=== PATIENT | male | born 1930 | race Caucasian/White ===

== ENCOUNTER 2016-04-18 00:14 | Emergency (ER) | payer MEDICARE, OTHER | END 2016-04-18 05:46 | disposition home or self-care (01) | DX: R41.0 Disorientation, unspecified (principal); R53.1 Weakness; I10 Essential (primary) hypertension; I25.10 Atherosclerotic heart disease of native coronary artery without angina pectoris; I25.2 Old myocardial infarction; Z95.1 Presence of aortocoronary bypass graft; Z95.0 Presence of cardiac pacemaker; E11.9 Type 2 diabetes mellitus without complications; J44.9 Chronic obstructive pulmonary disease, unspecified; Z86.73 Personal history of transient ischemic attack (TIA), and cerebral infarction without residual deficits; Z79.02 Long term (current) use of antithrombotics/antiplatelets; Z79.82 Long term (current) use of aspirin ==

== ENCOUNTER 2016-08-23 14:06 | Outpatient (CLI) | payer MEDICARE, OTHER | END 2016-08-23 14:07 | disposition short-term general hospital (02) | LOC: EMS 14:06 | PROVIDERS: ATTEND Surgery | DX: R06.02 Shortness of breath (principal) | CPT/HCPCS: A0425; A0427 ==

== ENCOUNTER 2016-10-14 21:19 | Outpatient (CLI) | payer MEDICARE, OTHER | END 2016-10-14 21:20 | disposition critical access hospital (66) | LOC: EMS 21:19 | PROVIDERS: ATTEND Surgery | DX: R10.9 Unspecified abdominal pain (principal); R11.0 Nausea | CPT/HCPCS: A0425; A0427 ==

== ENCOUNTER 2016-10-14 22:18 | Emergency (ER) | payer MEDICARE, OTHER ==
--- NOTE | 2016-10-14 22:38 | ED Physician Documentation ---
History of Present Illness - Stated complaint Stated Complaint: ABD PAIN - Chief complaint Chief Complaint: Abd Pain - History obtained from History obtained from: Patient - Additonal information Additional information: Patient is a 86-year-old man with history of coronary disease status post bypass 2 who presents with a complaint of right upper quadrant abdominal pain. He has had the abdominal pain each night for 3 consecutive previous nights. While he has a pain he develops nausea but does not have any vomiting. He does not think the pain is associated with eating. It did dissipate with nitroglycerin so he had taken nitroglycerin each night for the past couple of nights. He denies any fever or chills. He does have a cough but he does have a chronic cough and says it is not worse than it normally is. He describes a dull ache in the right upper quadrant but does not radiate. There is no constipation diarrhea or lower urinary symptoms. Tonight the pain was a little worse than it had been previously so he called the ambulance who brought him in for evaluation. Review of systems: For pertinent positive and negatives in the review of systems please see history of present illness. Otherwise all other systems have been reviewed and are negative. Dragon disclaimer: Parts of this medical record were created using voice recognition technology. Because of the inherent limitations of this system occasional same sounding word substitutions do occur and persist despite proofreading. Please read the document for context. Review of Systems Unable to obtain: Uncooperative Constitutional: denies: Fever, Chills, Myalgias Cardiac: denies: Chest pain / pressure, Palpitations Respiratory: reports: Cough. denies: Dyspnea GI: reports: Abdominal Pain, Nausea. denies: Abdominal Swelling, Vomiting, Constipation, Diarrhea, Hematemesis, Bloody / black stool : denies: Dysuria, Frequency, Hesitancy Neurologic: denies: Generalized weakness Endocrine: denies: Polydypsia, Polyuria PD PAST MEDICAL HISTORY - Past Medical History Cardiovascular: Hypertension, High cholesterol, Coronary artery disease, Angina , [place], Other Respiratory: COPD, Shortness of breath Neuro: TIA, Tremors Endocrine/Autoimmune: Type 2 diabetes GI: GERD, Ulcers : Renal insuffiency HEENT: Chronic vision loss, Chronic hearing loss Psych: None Musculoskeletal: Osteoarthritis Derm: None - Past Surgical History Past Surgical History: Yes General: Colonoscopy Ortho: Arthroscopic surgery Cardiovascular: CABG, Pacemaker HEENT: Cataracts - Present Medications Home Medications: Ambulatory Orders Medication Instructions Recorded Confirmed Albuterol [Ventolin Hfa] 2 puffs INH Q4H PRN 08/14/12 04/23/16 Aspirin [Aspir 81] 81 mg PO DAILY 08/14/12 04/23/16 Atorvastatin Calcium 20 mg PO HS 08/14/12 04/23/16 Beclomethasone 80 Mcg [Qvar 80] 1 puffs INH BID 08/14/12 04/23/16 Cinnamon Bark [Cinnamon] 500 mg PO DAILY 08/14/12 04/23/16 Clopidogrel [Plavix] 75 mg PO DAILY 08/14/12 04/23/16 Isosorbide Mononitrate [Imdur] 120 mg PO DAILY 08/14/12 04/23/16 Losartan Potassium [Cozaar] 25 mg PO DAILY 08/14/12 04/23/16 Metoprolol Tartrate 50 mg PO BID 08/14/12 04/23/16 Nitroglycerin [Nitrostat] 0.4 mg SL Q5MIN PRN 08/14/12 04/23/16 Cholecalciferol (Vitamin D3) 2,000 units PO DAILY 01/18/16 04/23/16 [Vitamin D3] Pantoprazole [Protonix] 40 mg PO DAILY 01/18/16 04/23/16 amLODIPine [Norvasc] 5 mg OP DAILY 01/18/16 04/23/16 Furosemide 20 mg PO DAILY 02/17/16 04/23/16 Isosorbide Mononitrate ER [Imdur] 60 mg PO DAILY 02/17/16 04/23/16 Terazosin [Hytrin] 10 mg PO DAILY PM 02/17/16 04/23/16 Tiotropium [place] [Spiriva] 1 inh IH DAILY 02/17/16 04/23/16 - Allergies Allergies/Adverse Reactions: Allergies Allergy/AdvReac Type Severity Reaction Status Date / Time acetaminophen Allergy Severe Itching Verified 10/14/16 22:31 atorvastatin calcium * Allergy Severe Itching Verified 10/14/16 22:31 [From Lipitor] cephalexin Allergy Severe Itching Verified 10/14/16 22:31 erythromycin base Allergy Severe Edema Verified 10/14/16 22:31 [Erythromycin Base] corn starch AdvReac Severe Itching Uncoded 01/18/16 11:08 - Social History Does the pt smoke?: No Smoking Status: Never smoker Does the pt drink ETOH?: No Does the pt have substance abuse?: No - Immunizations Immunizations are current?: Yes - POLST Patient has POLST: No PD ED PE NORMAL - General General: Alert and oriented X 3, No acute distress, Well developed/nourished, Other (Well-appearing elderly male lying in the bed in no apparent distress. He feels slightly warm to touch) - HEENT HEENT: Atraumatic, PERRL, Pharynx benign - Neck Neck: Supple, no meningeal sign, No bony TTP, No JVD, No bruit - Cardiac Cardiac: RRR, No murmur, No gallop, No rub - Respiratory Respiratory: No respiratory distress, Clear bilaterally - Abdomen Abdomen: Normal bowel sounds, Soft, Non distended, Other (Minimal tenderness right upper quadrant, no rebound, no peritoneal signs. No abnormal bowel tones) - Back Back: No CVA TTP - Derm Derm: Normal color, Warm and dry, No rash - Extremities Extremities: No deformity, No tenderness to palpate - Neuro Neuro: Alert and oriented X 3 Results - Vitals Vitals: Vital Signs - 24 hr 10/14/16 10/15/16 10/15/16 22:26 01:40 04:11 Temperature 37.2 C 36.9 C Heart Rate 68 54 L 55 L Respiratory 16 16 16 Rate Blood Pressure 172/51 H 137/69 H 132/70 H O2 Saturation 100 98 96 Oxygen O2 Source Nasal cannula - Labs Labs: Laboratory Tests 10/14/16 10/14/16 10/14/16 22:55 22:55 22:55 WBC 8.0 RBC 3.40 L Hgb 10.5 L Hct 31.9 L MCV 93.9 MCH 30.8 MCHC 32.8 RDW 15.8 H Plt Count 182 MPV 7.7 Neut # 6.3 Lymph # 1.1 L [place] # 0.5 Eos # 0.0 Baso # 0.0 Absolute Nucleated RBC 0.00 Nucleated RBCs 0.0 PT 12.3 INR 1.1 Sodium 139 Potassium 3.6 Chloride 103 Carbon Dioxide 27 Anion Gap 9.0 BUN 28 H Creatinine 1.3 H Estimated GFR (MDRD) 52 L Glucose 150 H Calcium 8.4 L Total Bilirubin 0.4 AST 56 H ALT 25 Alkaline Phosphatase 134 H Troponin I B-Natriuretic Peptide Total Protein 6.8 Albumin 3.2 Globulin 3.6 Albumin/Globulin Ratio 0.9 L Lipase 51 Urine Color Urine Clarity Urine pH Ur Specific [place]cd[place] Urine Protein Urine Glucose (UA) Urine Ketones Urine Occult Blood Urine Nitrite Urine Bilirubin Urine Urobilinogen Ur Leukocyte Esterase Ur Microscopic Review Urine Culture Comments 10/14/16 10/14/16 10/14/16 22:55 22:55 22:55 WBC RBC Hgb Hct MCV MCH MCHC RDW Plt Count MPV Neut # Lymph # [place] # Eos # Baso # Absolute Nucleated RBC Nucleated RBCs PT INR Sodium Potassium Chloride Carbon Dioxide Anion Gap BUN Creatinine Estimated GFR (MDRD) Glucose Calcium Total Bilirubin AST ALT Alkaline Phosphatase Troponin I 0.04 B-Natriuretic Peptide 345 H Total Protein Albumin Globulin Albumin/Globulin Ratio Lipase Urine Color YELLOW Urine Clarity CLEAR Urine pH 6.5 Ur Specific Mcd[place]iel 1.010 Urine Protein TRACE Urine Glucose (UA) NEGATIVE Urine Ketones NEGATIVE Urine Occult Blood NEGATIVE Urine Nitrite NEGATIVE Urine Bilirubin NEGATIVE Urine Urobilinogen 1 (NORMAL) Ur Leukocyte Esterase NEGATIVE Ur Microscopic Review NOT INDICATED Urine Culture Comments NOT INDICATED PD MEDICAL DECISION MAKING - ED course Complexity details: reviewed old records, reviewed results, re-evaluated patient , considered differential, d/w patient ED course: This patient is a 86-year-old man with history of multiple medical problems including hypertension, Dyslipidemia, COPD, asbestosis, Coronary artery disease status post bypass 2 and severe pulmonary hypertension On chronic oxygen who presents with right upper quadrant abdominal pain for 3 days. On examination initially he appeared flushed and was diaphoretic however he never measured a elevated temperature. On abdominal examination he had tenderness in the right upper quadrant and on ultrasound he had a sonographic Rossi's with a question of increased gallbladder wall thickness with biliary sludge. The patient has a normal white blood cell count and is transaminases, bilirubin, and lipase are normalThe case was discussed with general surgery initially and the Impression was that if this patient truly has acalculous cholecystitis and he probably should be transferred to facility with a higher level of care.. A CT scan of the abdomen and pelvis was performed without contrast and his CT scan shows A distended gallbladder with probable inflammatory changes. The radiologist comments that these findings are very suspicious for cholecystitis. Since no other problems were found on CT scan other than this patient's gallbladder, and because the symptoms fit I think he probably does have early acalculous cholecystitis. The patient's recent history was reviewed and he was here in January and transfered to [facility] because he was deemed too high of an operative risk for surgery here. 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 Because this patient likely has acalculous cholecystitis and in January when he had a hip fracture is deemed to high operative risk to be done at her hospital I think at this point in time we should try and transfer him to [facility] where he received surgery for his previous hip fracture. At this time blood cultures are being obtained and the patient will be started on empiric antibiotics. Disposition, transfer to [facility] Clinical impression: 1. Suspect early acalculous cholecystitis 2. Chronic bilateral pleural effusions 3. Chronic kidney disease-stable 4. Coronary disease status post bypass 2-stable 5.History of COPD, asbestosis, and pulmonary hypertension on chronic O2 therapy 6. Current anticoagulation on Plavix Critical care time approximately 70 minutes independent of any procedures Departure - Departure Disposition: 02 Transfer Acute Care Hosp Clinical Impression: Acute acalculous cholecystitis
--- NOTE | 2016-10-14 23:02 | XRAY Preliminary Report ---
Exam: XR Chest 1 View IMPRESSION: 1. Cardiomegaly and postoperative changes with pulmonary vascular congestion. 2. Bilateral infiltrates or edema and small pleural effusions. [facility] SITE ID: [id number]
[2016-10-14 23:03] LABS: BILIRUBIN,URINE NEGATIVE (NEGATIVE); PH,URINE 6.5 PH (5.0-7.5)
[2016-10-14 23:05] LABS: UA CHARGE (STRIP ONLY) YES; UR CULTURE IF IND NOT INDICATED
--- NOTE | 2016-10-14 23:05 | XRAY Report ---
EXAM: CHEST RADIOGRAPHY EXAM DATE: 10/14/2016 10:49 PM. CLINICAL HISTORY: Cough Right sided chest pain. COMPARISON: 04/18/2016. TECHNIQUE: 1 view. FINDINGS: Lungs/Pleura: Pulmonary vascular congestion. Bilateral infiltrates or edema. Small pleural effusions. No pneumothorax. Mediastinum: Mild cardiomegaly. Aortic atherosclerosis. Other: Median sternotomy. Implanted bipolar pacemaker on the left is unchanged. IMPRESSION: 1. Cardiomegaly and postoperative changes with pulmonary vascular congestion. 2. Bilateral infiltrates or edema and small pleural effusions. [facility] Referring Provider Line: [phone] SITE ID: [id number]
[2016-10-14 23:06] LABS: BASOPHILS % (AUTO) 0.4 %; EOSINOPHILS % (AUTO) 0.5 %; HCT - HEMATOCRIT 31.9 % (42.0-52.0); HGB - HEMOGLOBIN 10.5 g/dL (14.0-18.0); LYMPHOCYTES # (AUTO) 1.1 10^3/uL (1.5-3.5); LYMPHOCYTES % (AUTO) 13.4 %; MEAN CORPUSCULAR HEMOGLOBIN 30.8 pg (27.0-31.0); MEAN CORPUSCULAR HGB CONC 32.8 g/dL (32.0-36.0); MEAN CORPUSCULAR VOLUME 93.9 fL (80.0-94.0); MEAN PLATELET VOLUME 7.7 fL (7.4-11.4); MONOCYTES # (AUTO) 0.5 10^3/uL (0.0-1.0); MONOCYTES % (AUTO) 6.7 %; NEUTROPHILS # (AUTO) 6.3 10^3/uL (1.5-6.6); RED CELL DISTRIBUTION WIDTH 15.8 % (12.0-15.0)
[2016-10-14 23:16] LABS: INR 1.1 (0.8-1.2); PT - PROTHROMBIN TIME 12.3 secs (9.9-12.6)
[2016-10-14 23:22] LABS: ALBUMIN/GLOBULIN RATIO 0.9 (1.0-2.2); BILIRUBIN,TOTAL 0.4 mg/dL (0.2-1.0); CALCIUM 8.4 mg/dL (8.5-10.3); CREATININE 1.3 mg/dL (0.6-1.2); POTASSIUM 3.6 mmol/L (3.5-5.0); TOTAL PROTEIN 6.8 g/dL (6.7-8.2)
--- NOTE | 2016-10-15 00:50 | Ultrasound Preliminary Report ---
Exam: US Abdomen Limited IMPRESSION: 1. Exam is equivocal for acute cholecystitis. There is distention of the gallbladder as well as borde rline wall thickening. Patient reports right upper quadrant tenderness. No pericholecystic fluid. No biliary dilation. 2. Nonspecific coarsened hepatic point, the echogenicity. Hepatocellular disease difficult to exclude with certainty. [facility] SITE ID: [id number]
--- NOTE | 2016-10-15 00:53 | Ultrasound Report ---
EXAM: ABDOMEN ULTRASOUND LIMITED, RUQ EXAM DATE: 10/14/2016 11:48 PM. CLINICAL HISTORY: Right upper quadrant abdominal pain. COMPARISON: 12/10/2012. TECHNIQUE: Real-time scanning was performed with static images obtained. FINDINGS: Liver: Mild coarsened parenchymal echogenicity. No suspicious focal lesion. Liver measures 16.7 cm in length. Portal Vein: Patent with hepatopetal flow. Gallbladder: Moderately distended gallbladder. There is gallbladder sludge. Borderline wall thickenin g. Equivocal positive sonographic Rossi sign. Biliary System: CBD measures 3.0 mm. No intrahepatic or extrahepatic ductal dilatation. Pancreas: Obscured by overlying structures. Right Kidney: Visualized portions of the right kidney are without significant abnormality. Right kid huey measures 11.7 cm in length. Other: No significant free fluid. IMPRESSION: 1. Exam is equivocal for acute cholecystitis. There is distention of the gallbladder as well as borde rline wall thickening. Patient reports right upper quadrant tenderness. No pericholecystic fluid. No biliary dilation. 2. Nonspecific coarsened hepatic point, the echogenicity. Hepatocellular disease difficult to exclude with certainty. [facility] Referring Provider Line: [phone] SITE ID: [id number]
--- NOTE | 2016-10-15 04:04 | CT Preliminary Report ---
Exam: CT Abdomen/Pelvis W/O IMPRESSION: 1. Mildly distended gallbladder with probable inflammatory changes. No calcified gallstones are seen but findings are suspicious for cholecystitis. 2. Appendix appears normal. 3. Colonic diverticula without evidence of diverticulitis. 4. Pulmonary opacities and chronic loculated pleural fluid collections, similar compared with the andrea or chest CT. [facility] SITE ID: [id number]
--- NOTE | 2016-10-15 04:07 | CT Report ---
EXAM: CT ABDOMEN AND PELVIS EXAM DATE: 10/15/2016 03:28 AM. CLINICAL HISTORY: Abdominal pain. COMPARISONS: CT chest, 02/17/2016. CT abdomen and pelvis, 01/14/2008. TECHNIQUE: Routine helical CT imaging was performed through the abdomen and pelvis. IV contrast: None . Enteric contrast: No. Reconstructions: Coronal and sagittal. In accordance with CT protocol optimization, one or more of the following dose reduction techniques w ere utilized for this exam: automated exposure control, adjustment of mA and/or KV based on patient s ize, or use of iterative reconstructive technique. FINDINGS: Lung Bases: Coarse bibasilar pulmonary opacities and small loculated chronic pleural fluid collection s. These findings are similar compared with the prior chest CT. Postoperative changes. Heart size upp er normal. Small hiatal hernia with postoperative changes at the gastroesophageal junction. Liver: No focal lesion identified on this noncontrast examination. Gallbladder/Bile Ducts: Gallbladder is distended. Suspect inflammatory changes. No calcified gallston es are seen. Spleen: Normal. Pancreas: Moderate atrophy. Adrenal Glands: Normal. Kidneys: Normal. No masses or hydronephrosis. Peritoneal Cavity/Bowel: Colonic diverticula with no definite diverticulitis. No bowel obstruction se en. Moderate stool in the colon, right greater than left. No free air or free fluid. No lymphadenopat hy. Appendix appears normal. Pelvic Organs: Streak artifact. No obvious acute abnormality. Vasculature: Moderate to severe atherosclerosis. No cecilia aneurysm. Bones: Left hip prosthesis. Degenerative changes in the spine. Other: None. IMPRESSION: 1. Mildly distended gallbladder with probable inflammatory changes. No calcified gallstones are seen but findings are suspicious for cholecystitis. 2. Appendix appears normal. 3. Colonic diverticula without evidence of diverticulitis. 4. Pulmonary opacities and chronic loculated pleural fluid collections, similar compared with the andrea or chest CT. [facility] Referring Provider Line: [phone] SITE ID: [id number]
--- NOTE | 2016-10-15 04:11 | CT Preliminary Report ---
Exam: CT Thoracic Spine W/O IMPRESSION: 1. Osteopenia and mild degenerative changes. 2. No acute thoracic spine abnormality seen. [facility] SITE ID: [id number]
--- NOTE | 2016-10-15 04:14 | CT Report ---
EXAM: CT THORACIC SPINE WITHOUT CONTRAST EXAM DATE: 10/15/2016 03:28 AM. CLINICAL HISTORY: Right-sided pain. COMPARISONS: CT chest, 02/17/2016. TECHNIQUE: Thin-section axial images were acquired of the thoracic spine without contrast. Post-proce ssing: Coronal and sagittal reformats. Other: None. In accordance with CT protocol optimization, one or more of the following dose reduction techniques w ere utilized for this exam: automated exposure control, adjustment of mA and/or KV based on patient s ize, or use of iterative reconstructive technique. FINDINGS: Alignment: Unremarkable. Bones: Osteopenia. No acute fracture or focal area of bone destruction identified. Disk Levels/Facets: Multilevel degenerative disk disease and degenerative joint disease, mild for age. No significant spi nal stenosis is appreciated. Other: Pulmonary opacities and chronic loculated pleural fluid collections are similar compared with the prior chest CT. IMPRESSION: 1. Osteopenia and mild degenerative changes. 2. No acute thoracic spine abnormality seen. [facility] Referring Provider Line: [phone] SITE ID: [id number]
[2016-10-15] MEDS ORDERED: PIPERACILLIN/TAZOBACTAM 3.375 GM in SODIUM CHLORIDE 0.9% MINIBAG 100 ML IV STA (05:23)
[2016-10-15 06:58] VITALS: BP 138/69
== END 2016-10-15 07:00 | disposition short-term general hospital (02) ==
LOC: EDBD → EDUNIT# → ED 22:18
DX: K81.0 Acute cholecystitis (principal); J90 Pleural effusion, not elsewhere classified; E11.22 Type 2 diabetes mellitus with diabetic chronic kidney disease; I12.9 Hypertensive chronic kidney disease with stage 1 through stage 4 chronic kidney disease, or unspecified chronic kidney disease; N18.9 Chronic kidney disease, unspecified; I25.119 Atherosclerotic heart disease of native coronary artery with unspecified angina pectoris; Z95.1 Presence of aortocoronary bypass graft; Z79.01 Long term (current) use of anticoagulants; Z95.0 Presence of cardiac pacemaker; I25.2 Old myocardial infarction; J44.9 Chronic obstructive pulmonary disease, unspecified; Z86.73 Personal history of transient ischemic attack (TIA), and cerebral infarction without residual deficits; K21.9 Gastro-esophageal reflux disease without esophagitis; Z87.11 Personal history of peptic ulcer disease; M19.90 Unspecified osteoarthritis, unspecified site; Z79.82 Long term (current) use of aspirin
CPT/HCPCS: 36415; 71010; 72128; 74176; 76705; 80053; 81001; 81003; 83690; 83880; 84484; 85025; 85610; 87040; 87086; 93005; 96365; 99284; 99291

== ENCOUNTER 2016-10-15 06:57 | Outpatient (CLI) | payer MEDICARE, OTHER | END 2016-10-15 06:58 | disposition short-term general hospital (02) | LOC: EMS 06:57 | PROVIDERS: ATTEND Surgery | DX: K80.80 Other cholelithiasis without obstruction (principal) | CPT/HCPCS: A0170; A0425; A0426 ==

== ENCOUNTER 2016-10-29 08:00 | Outpatient (CLI) | payer MEDICARE, OTHER ==
[2016-10-29 19:28] LABS: CALCIUM 9.3 mg/dL (8.5-10.3); CREATININE 1.5 mg/dL (0.6-1.2); POTASSIUM 4.8 mmol/L (3.5-5.0)
== END 2016-10-29 08:01 ==
LOC: LAB.F 08:00
PROVIDERS: ATTEND Family Medicine
DX: I13.0 Hypertensive heart and chronic kidney disease with heart failure and stage 1 through stage 4 chronic kidney disease, or unspecified chronic kidney disease (principal)
CPT/HCPCS: 80048

== ENCOUNTER 2016-11-15 14:15 | Outpatient (CLI) | payer MEDICARE, OTHER ==
--- NOTE | 2016-11-15 18:13 | CONSULTATION NOTE ---
Palliative Care Consultation - Referral Referring Provider: Nicky WATTS Time of Visit: [id number] - History of Present Illness Brief History of Present Illness: This is a fiesty 86 year old gentleman with multiple co-morbidities including significant COPD, CAD/diastolic heart failure, A-fib with pacer, DM, CKD and angina. He lives in the basement apartment of his [facility], but has become increasingly dependent, anxious, and frail. His most pressing symptom is his angina, this has improved with the use of his oxygen 24/, though he is not always compliant and tends to "fuss" about it. It usually responds to nitro, but when gets panicky tends to call 911, if daughter can talk him "down" they usually get through these spells. He has underlying severe COPD, noted rhonchi throughout, baseline, had been followed by HH on and off after various hospitalization. He perceives the pulmicort nebulizer has been most helpful in addressing his dyspnea. He has had some weight loss, at 136, previous a year ago 155, on HH discharge 144. Recently hospitalized at [place] with abdominal pain since resolved, CT had noted some sludge in gallbladder and was suspicious of calculous cholecystitis, no recurrence. 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 Medical/Surgical History - Past Medical History Cardiovascular: reports: Hypertension, High cholesterol, Coronary artery disease , Angina, [place], Other Respiratory: reports: COPD, Shortness of breath Neuro: reports: TIA, Tremors Endocrine/Autoimmune: reports: Type 2 diabetes GI: reports: GERD, Ulcers : reports: Renal insuffiency HEENT: reports: Chronic vision loss, Chronic hearing loss Psych: reports: Depression, Anxiety, Panic attacks Musculoskeletal: reports: Osteoarthritis, Fatigue Derm: reports: None MRSA Hx?: No - Past Surgical History General: reports: Colonoscopy Ortho: reports: Arthroscopic surgery Cardiovascular: reports: CABG, Pacemaker HEENT: reports: Cataracts - Substance History Use: Uses substance without health or social issues: NONE, Other (alcohol use in past;) Social History - Living Situation Living arrangement: At home, Other (patient lives in basement of stepdaughter and her ; he and her mother had moved in over 20 years ago; she in 2003) Living Situation: Alone (patient has lifeline; Carie checks on regularly but she is returning to work; reports he gets more anxious these last few months as he has declined) Family History - Family History Family History: Mother: , CVA/TIA, Father: , Sister: , Brother: Alive and Well (89) Medications/Allergies - Medications Home Medications: Ambulatory Orders Medication Instructions Recorded Confirmed Albuterol [Ventolin Hfa] 2 puffs INH Q4H PRN 08/14/12 11/18/16 Aspirin [Aspir 81] 81 mg PO DAILY 08/14/12 11/18/16 Clopidogrel [Plavix] 75 mg PO DAILY 08/14/12 11/18/16 Isosorbide Mononitrate [Imdur] 120 mg PO BID 08/14/12 11/18/16 Metoprolol Tartrate 50 mg PO BID 08/14/12 11/18/16 Nitroglycerin [Nitrostat] 0.4 mg SL Q5MIN PRN 08/14/12 11/18/16 Cholecalciferol (Vitamin D3) 2,000 units PO DAILY 01/18/16 11/18/16 [Vitamin D3] Pantoprazole [Protonix] 40 mg PO DAILY 01/18/16 11/18/16 amLODIPine [Norvasc] 5 mg OP DAILY 01/18/16 11/18/16 Furosemide 40 mg PO DAILY 02/17/16 11/18/16 Tiotropium [place] [Spiriva] 1 inh IH DAILY 02/17/16 11/18/16 Beta Carotene 25,000 units PO DAILY 11/18/16 Budesonide 1 neb INH BID 11/18/16 11/18/16 Gentle Iron 28 mg PO DAILY 11/18/16 Ipratropium/Albuterol [Duoneb] 1 neb INH Q4HR PRN 11/18/16 11/18/16 Prosta [place] 1 - 2 cap PO DAILY 11/18/16 - Allergies Allergies/Adverse Reactions: Allergies Allergy/AdvReac Type Severity Reaction Status Date / Time acetaminophen Allergy Severe Itching Verified 10/14/16 22:31 atorvastatin calcium * Allergy Severe Itching Verified 10/14/16 22:31 [From Lipitor] cephalexin Allergy Severe Itching Verified 10/14/16 22:31 erythromycin base Allergy Severe Edema Verified 10/14/16 22:31 [Erythromycin Base] corn starch AdvReac Severe Itching Uncoded 01/18/16 11:08 Review of Systems - Constitutional Constitutional: reports: Fatigue, Weakness, Weight loss (136; baseline a few years ago was 155; most recently on home health 144-145) - Eyes Eyes: reports: Vision loss, Corrective lenses - Ears, Nose & Throat Ears, Nose & Throat: reports: Hearing loss - Cardiovascular Cariovascular: reports: Irregular heart rate, Chest pain, Lightheadedness, Exertional dyspnea, Decr. exercise tolerance - Respiratory Respiratory: reports: Cough, Wheezing, SOB at rest, SOB with exertion - Gastrointestinal Gastrointestinal: reports: Constipation, Reflux/heartburn - Genitourinary Genitourinary: reports: Incontinence - Musculoskeletal Musculoskeletal: reports: Muscle pain, Back pain, Muscle aches, Stiffness, Limited range of motion, Muscle weakness - Integumentary Integumentary: reports: Dryness - Neurological Neurological: reports: General weakness, Dizziness, Memory problems, Abnormal gait - Psychiatric Psychiatric: reports: Depression, Anxiety. denies: Suicidal - Endocrine Endocrine: reports: Intolerance to cold - Hematologic/Lymphatic Hematologic/Lymphatic: reports: Other (on plavix) - All Other Systems All Other Systems: reports: Reviewed and negative Physical Examination - Vital Signs Temperature: 98.4 C Pulse Rate: 54 Respiratory Rate: 20 O2 Saturation: 93 (2l) Blood Pressure: 148/62 - Physical Exam General Appearance: positive: No acute distress, Anxious Eyes Bilateral: positive: Normal inspection ENT: positive: No signs of dehydration. negative: Oral lesions Neck: positive: No JVD, Trachea midline, Stiff neck. negative: Lymphadenopathy (R), Lymphadenopathy (L) Respiratory: positive: Rhonchi (throughout; clear some with cough effort; patient's baseline) Cardiovascular: positive: Irregularly irregular, Systolic murmur Abdomen: positive: Nml bowel sounds, No distention Skin: positive: Dryness Extremities: positive: Full ROM, No pedal edema Neurologic/Psychiatric: positive: Oriented x3, Depressed mood/affect Palliative Care - POLST Patient has POLST: Yes POLST Status: DNR (no further selections made) Pain: No pain Drowsiness: Mild (1-3) (easily fatigues) Nausea: None Anxiety: Moderate (4-6) Dyspnea: Mild (1-3) Anorexia: Mild (1-3) Insomnia: Sleeps well Constipation: No Feelings of wellbeing/Perceived Quality of Life: Worsening Performance Status: Patient independent in his apartment; does go out in yard at times. Has poor activity tolerance but is able to shower independently - Palliative Care Discussion: Surrogate decision maker-Carie [facility] stepdaughter; patient admits with his anxiety etc. that he gets "explosive" at times; daughter reports he has "rages" and can be unreasonable at times; is noting anxiety worsens in later afternoon and evening. Does feel he is feeling more vulnerable, does get more worried when she is out for evening etc. Daughter's worried about shelter ability to keep him in the home without more support; has been resistant to "paying" for help to come in, though in conversation today was open to Carie exploring this further with impending return to work as she is a teacher. Patient has a POLST as DNAR; but rest is not complete. Given the length and new visit will redo at follow up, is posted on fridge. Patient's perception of his illness is that he is getting worse when as what his thoughts were "think I don't have much time left"; "don't scare easily"; but does get frightened with the chest pain. Patient would like not to have to go to hospital but likes the paramedics and the care he gets. Impression and Recommendations - Palliative Care Impression: This is a 86 year old gentleman that presents with multiple co-morbidities of CAD/diastolic heart failure; COPD; DM; CKD; Afib with pacemaker and angina. He is now oxygen dependent, moderate symptom burden of fatigue, dyspnea, anxiety, and depressive mood. Patient has had both slow cognitive and functional decline over the year, as well as multiple hospitalizations. Goal is to develop shelter plan to address decline; social situation; and manage symptoms. Recommendations/Counseling Done: 1. Angina, chronic. Patient's symptoms have improved with 24 hour use of oxygen , though does not strictly adhere. No chest pain episodes last two weeks. Discussed "urgent care" plan, patient often calls daughter and if can allay anxiety, use of nitro usually effective. Patient with mild cognitive deficits and would not be able implement plan on own, but did supply to daughter morphine 20 mg/ml to give 0.25 ml if pain unrelieved with morphine as a tool; as well as lorazepam if needed for rescue when patient has escalating "panic' attacks. 2. Anxiety. Patient with history of long standing issues with mood swings. Patterns describe possible sundowning. Discussed possible initiation of low does celexa as can address neuropsychiatric symptoms in some dementia patients to help with mood stabilization. Has rescue lorazepam to use only if escalating ; directions given to use lorzepam 2 mg/ml to use 0.125 ml. Directions reviewed , daughter will keep medications with her, understand they are a "tool box" to help meet goals to minimize 911 calls and address her concern of not being able to do anything. Did recommend follow up on getting caregivers for companionship and support for patient; recommended and provided list of agencies. Daughter's daughter to have first grandbaby in February and she will be gone 3 weeks, this would help patient if used to other caregivers in preparation. 3. COPD. Patient tolerating breathlessness with pacing of activity, independent in use of nebulizer. 4. Advanced care planning. Patient is presenting with decline; daugther concern about LTP; will have Palliative Care Supervisor Customer Services follow up. Reviewed POLST, will address at next visit as patient easily overwhelmed. Difficult for patient to get out to appointments etc. related to fatigue/breathlessness/ and generalized weakness. Will see patient in two weeks to revisit. Prognostically patient on Jae Index which looks at Community Dwelling adults age 64 and older for all cause 1 year mortality Out of 100 with similar answers for patient 47 will and 53 will survive over the next year. Risk calculators cannot predict the future for any one individual, but give an estimate of how many individuals with similar risk factors will live and dies but cannot identify who. Time Spent: 75 mintues spent with greater than 50% done counseling regarding angina/anxiety/ goals of care and anticipatory guidance.
== END 2016-11-15 14:16 | disposition home or self-care (01) ==
LOC: PC 14:15
PROVIDERS: ATTEND Nurse Practitioner Adult Health
DX: Z51.5 Encounter for palliative care (principal); J44.9 Chronic obstructive pulmonary disease, unspecified; Z91.81 History of falling; E11.22 Type 2 diabetes mellitus with diabetic chronic kidney disease; I13.0 Hypertensive heart and chronic kidney disease with heart failure and stage 1 through stage 4 chronic kidney disease, or unspecified chronic kidney disease; N18.9 Chronic kidney disease, unspecified; I50.30 Unspecified diastolic (congestive) heart failure; I48.91 Unspecified atrial fibrillation; Z95.0 Presence of cardiac pacemaker; I25.111 Atherosclerotic heart disease of native coronary artery with angina pectoris with documented spasm; F41.9 Anxiety disorder, unspecified; Z95.1 Presence of aortocoronary bypass graft; H91.90 Unspecified hearing loss, unspecified ear; H54.7 Unspecified visual loss; Z99.81 Dependence on supplemental oxygen; Z66 Do not resuscitate
CPT/HCPCS: 99345

== ENCOUNTER 2016-11-28 14:00 | Outpatient (CLI) | payer MEDICARE, OTHER ==
--- NOTE | 2016-11-28 16:05 | PROVIDER PROGRESS NOTE ---
Palliative Care Follow Up - Referral Referring Provider: Nicky WATTS Time of Visit: [id number] Referral setting: Home (patient is seen in his home setting secondary to it's a taxing and considerable effort for him to leave the home related to his dyspnea and fatigue) Referral Reason: Advanced COPD - Information Sources History obtained from: Patient Exam limitations: Clinical condition (patient with STM deficits able to participate in visit) - History of Present Illness Update Brief HPI Update: This is a 86 year old gentleman with severe end stage COPD complicated by co- morbidities of diastolic heart failure/atrial fib/pacemaker, DM, CKD, and chronic angina/hypoxia. Patient with dyspnea at rest, but does not perceive this as distressful, now dependent on oxygen, remains independent in apartment but recognizing needing more support. Productive cough, wheezing and scatter rhonchi throughout, patient's baseline. Reports "feeling some better", able to engage and concentrate on conversation today. Social History - Living Situation Living arrangement: Other (lives in basement of daugther's home) Living Situation: Alone (daughter upstairs; checks on regularly but is returning to school where she works now) Support System: Patient has sizing end bander once a week, baths while she is there but no assistance ; now helps with laundry Medications/Allergies - Medications Home Medications: Ambulatory Orders Medication Instructions Recorded Confirmed Albuterol [Ventolin Hfa] 2 puffs INH Q4H PRN 08/14/12 11/18/16 Aspirin [Aspir 81] 81 mg PO DAILY 08/14/12 11/18/16 Clopidogrel [Plavix] 75 mg PO DAILY 08/14/12 11/18/16 Isosorbide Mononitrate [Imdur] 120 mg PO BID 08/14/12 11/18/16 Metoprolol Tartrate 50 mg PO BID 08/14/12 11/18/16 Nitroglycerin [Nitrostat] 0.4 mg SL Q5MIN PRN 08/14/12 11/18/16 Cholecalciferol (Vitamin D3) 2,000 units PO DAILY 01/18/16 11/18/16 [Vitamin D3] Pantoprazole [Protonix] 40 mg PO DAILY 01/18/16 11/18/16 amLODIPine [Norvasc] 5 mg OP DAILY 01/18/16 11/18/16 Furosemide 40 mg PO DAILY 02/17/16 11/18/16 Tiotropium [place] [Spiriva] 1 inh IH DAILY 02/17/16 11/18/16 Beta Carotene 25,000 units PO DAILY 11/18/16 Budesonide 1 neb INH BID 11/18/16 11/18/16 Gentle Iron 28 mg PO DAILY 11/18/16 Ipratropium/Albuterol [Duoneb] 1 neb INH Q4HR PRN 11/18/16 11/18/16 Prosta [place] 1 - 2 cap PO DAILY 11/18/16 Lorazepam [Lorazepam Intensol] 0.25 mg SL Q6HR PRN 11/28/16 11/28/16 Morphine Sulfate [Morphine Sulf 5 mg SL Q4HR PRN 11/28/16 11/28/16 Oral (Roxanol)] - Allergies Allergies/Adverse Reactions: Allergies Allergy/AdvReac Type Severity Reaction Status Date / Time acetaminophen Allergy Severe Itching Verified 10/14/16 22:31 atorvastatin calcium * Allergy Severe Itching Verified 10/14/16 22:31 [From Lipitor] cephalexin Allergy Severe Itching Verified 10/14/16 22:31 erythromycin base Allergy Severe Edema Verified 10/14/16 22:31 [Erythromycin Base] corn starch AdvReac Severe Itching Uncoded 01/18/16 11:08 Review of Systems - Constitutional Constitutional: reports: Fatigue, Other (140) - Eyes Eyes: reports: Vision loss, Corrective lenses - Ears, Nose & Throat Ears, Nose & Throat: reports: Hearing loss, Hearing aids - Cardiovascular Cariovascular: reports: Irregular heart rate, Chest pain (decreased episodes; using maybe two times a week and only one; perceives it is when he takes his medications on the later side; feels oxygen has made big difference) - Respiratory Respiratory: reports: Cough (constant rolling cough/moist baseline;), Sputum production (brown tinged in am per report-clear by end of day), Wheezing, SOB at rest (reports has "gotten use to it" ;), SOB with exertion - Gastrointestinal Gastrointestinal: reports: Constipation (controlled with softener). denies: Black stools, Reflux/heartburn - Genitourinary Genitourinary: reports: Urgency - Musculoskeletal Musculoskeletal: reports: Muscle aches, Stiffness, Joint pain (left shoulder; better control with using APAP twice a day) - Integumentary Integumentary: reports: Rash (perceives has rash on upper arms) - Neurological Neurological: reports: General weakness, Memory problems (feels had "like a stroke" a few months a go with change in balance and memory; had a high IQ before), Abnormal gait, Other (voice very soft and weak) - Psychiatric Psychiatric: reports: Anxiety. denies: Delusions, Hallucinations - Endocrine Endocrine: reports: Other (type II diabetes) - Hematologic/Lymphatic Hematologic/Lymphatic: denies: Recurrent infections - All Other Systems All Other Systems: reports: Reviewed and negative Physical Examination - Vital Signs Temperature: 98.7 C Pulse Rate: 51 Respiratory Rate: 22 O2 Saturation: 97 Blood Pressure: 152/72 - Physical Exam General Appearance: positive: No acute distress Eyes Bilateral: positive: Conjunctivae nml ENT: positive: ENT inspection nml Neck: positive: No JVD, Trachea midline Respiratory: positive: Wheezes (expiratory wheezing), Rhonchi (improved with asking to expell sputum; requested he "cough it out" more frequently), Other ( patient with rolling cough; productive of slight tompkins/white sputum; reports his "normal";) Cardiovascular: positive: Irregularly irregular, Bradycardia, Systolic murmur Abdomen: positive: Non-tender, Nml bowel sounds Skin: positive: Dryness Extremities: positive: No pedal edema Neurologic/Psychiatric: positive: Oriented x3, Slurred/abnml speech (voice weak and forced air to get volume up) Palliative Care - POLST Patient has POLST: Yes POLST Status: DNR Pain: Pain unchanged, Location (shoulders left greater than right; reports controlled) Drowsiness: Mild (1-3) (does sleep some during the day due to boredom) Nausea: None Anxiety: Mild (1-3) Dyspnea: Moderate (4-6) Anorexia: Mild (1-3) (reports eats "pretty well" sometimes not hungary) Insomnia: Sleeps well Constipation: Yes, Managed Feelings of wellbeing/Perceived Quality of Life: Worsening (patient with insight that he is declining;) Performance Status: Patient ambulates with 4WW in apartment; feeling less sure of himself with bathing does admit it would be helpful to have assistance; sometimes takes walk outside but paces self; walks a few feet then sits on walker; daughter assists with meal prep or leaves groceries he can prepare himself - Palliative Care Discussion: Patient seen by himself today, seems more trusting now of myself. Shared he "doesn't expect to be going much further", when asked specifically if afraid of dying he says he is not scared. He reports he is sikhism in his own way, but nothing specific. Is missing relationship with who 13 years ago. Discussed my concerns about his isolation, reports he is not depressed but could see it is getting "harder". Explored barriers to having more help, he has very strong opinions about money, would have some to support hiring care or going to an assisted living. He has a unrealistic plan of hiring someone he met at the [employer] that is a caregiver, "she was real nice". Reviewed many people who choose to be caregivers are very nice, he could see it would be helpful to have help with showers and out to breakfast etc. Reminded it would be good to have in place before daughter leaves to help with new granddaughter expected in the late fall. He will talk to his daughter again about getting help. Has POLST, does understand he has limited life expectancy, does not want to be more dependent. Needs to be further completed but will wait for daughter to redo. Discussed question about stress test; patient feeling he would not be a candidate for surgery and not willing to do much more. Discussed currently symptoms stable, 4 hour test felt overwhelming and concerned about the trip. Would support if patient did not want to pursue at this time given his goals. Impression and Recommendations - Palliative Care Impression: This is a 86 year old gentleman with severe end stage COPD complicated by co- morbidities of diastolic heart failure/atrial fib/pacemaker, DM, CKD, and chronic angina/hypoxia. Patient reports minimal angina episodes less than 2 times a week, responding to nitro, and feeling better overall. Patient with dyspnea at rest but tolerating without distress. Patient fragile but managing with current care plan in place. Recommendations/Counseling Done: 1. Angina, patient perceives managing well with oxygen and occasional nitro with good relief. Reports anxiety improved with fewer episodes and feels it is usually related to medication management. 2. Dyspnea, patient tolerating dyspnea, needing to be reminded to wear oxygen at all times. Counseling for pacing, energy conservation, using neb correctly BID, and management of secretions. 3. Anxiety. Counseling to explore feelings of loss and grief with loss of health and declining functional/cognitive status. Encouraged to pursue more support and socialization, will have Palliative Care Risk Prevention Engineer follow up as well. Patient [employer] vet, may benefit from volunteer. Patient does not perceive self as depressed, will continue to monitor if might benefit from pharmaceutical support. 4. Advanced care planning, counseling regarding patient's goals of care, concerns, coping and anticipatory guidance. Time Spent: Time spent 45 minutes with greater than 50% done in counseling regarding symptom management, goals of care and anticipatory guidance.
== END 2016-11-28 14:01 | disposition home or self-care (01) ==
LOC: PC 14:00
PROVIDERS: ATTEND Nurse Practitioner Adult Health
DX: Z51.5 Encounter for palliative care (principal); R06.00 Dyspnea, unspecified; J44.9 Chronic obstructive pulmonary disease, unspecified; I25.111 Atherosclerotic heart disease of native coronary artery with angina pectoris with documented spasm; F41.9 Anxiety disorder, unspecified; Z91.81 History of falling; E11.22 Type 2 diabetes mellitus with diabetic chronic kidney disease; I13.0 Hypertensive heart and chronic kidney disease with heart failure and stage 1 through stage 4 chronic kidney disease, or unspecified chronic kidney disease; N18.9 Chronic kidney disease, unspecified; I50.30 Unspecified diastolic (congestive) heart failure; I48.91 Unspecified atrial fibrillation; Z95.0 Presence of cardiac pacemaker; Z95.1 Presence of aortocoronary bypass graft; H91.90 Unspecified hearing loss, unspecified ear; H54.7 Unspecified visual loss; Z99.81 Dependence on supplemental oxygen
CPT/HCPCS: 99349

== ENCOUNTER 2016-12-17 16:15 | Outpatient (CLI) | payer MEDICARE, OTHER ==
--- NOTE | 2016-12-17 19:06 | PROVIDER PROGRESS NOTE ---
Palliative Care Follow Up - Referral Referring Provider: Nicky WATTS Time of Visit: 9209-1731 Referral setting: Home (patient is seen in home setting secondary to it's a taxing and considerable effort for the patient to leave the home) Referral Reason: Angina - Information Sources History obtained from: Patient, Family (daughter Carie present for visit) Exam limitations: Clinical condition (patient very anxious; some STM issues and cognitive deficits) - History of Present Illness Update Brief HPI Update: This is a 86 year old fiesty gentleman with severe end stage COPD, and multiple co-morbidities of diastolic heart failure, atrial fib, pacemeake, DM, CKD, and chronic angina. Daughter Carie called this am, patient with anxiety distress regarding SOB, perceived oxygen as "not working", chest pain though relieved with nitro attributed to his oxygen, worried about medications, and not easily redirected. Was not in respiratory distress, but unable to convince him his oxygen was fine, and was hoping for assistance with his agitation, requesting a visit to head off 911 encounter. 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 I find the patient at end of day, recovered, but convinced his oxygen was not working with out the window open and the fan bringing it in, the "machine" is not a good one. Examined concentrator, changed out cannula (stiffened and hard) and check 02 sats on 2 liters is 99%. Very hard to redirect, or understand how it "works", but reassured by the numbers. Demonstrated use of oximeter, numbers reassuring to patient, will leave mine for him to use and daughter will obtain one. Reviewed episodes of chest pain, noted 'breathlessness" on awakening last night , and one nitro worked this am. Lungs at baseline are poor, but no moist crackles noted, no LE edema, vitals stable so reassured. Using nitro maybe as best his recall is about twice a week, goes several days, and at the most has had to use two these last few weeks. Acknowledged is doing well. Concern about "changing up" told Ranexa was the next step, is that he is alone and if side effects or adjustment issues has no supervision or support. Reassured current regimen appears to be very effective, patient remains active with able to take walk around neighborhood pacing self, ambulates in apartment, and rarely pain at rest and that is good. Patient unable to express what he is worried about with chest pain as has resolved in past with nitro and rest. Social History - Living Situation Living arrangement: At home Living Situation: With family (lives in daughters lower level split home; looking to hire assistance but difficulty finding caregivers) Support System: Medications/Allergies - Medications Home Medications: Ambulatory Orders Medication Instructions Recorded Confirmed Albuterol [Ventolin Hfa] 2 puffs INH Q4H PRN 08/14/12 12/17/16 Aspirin [Aspir 81] 81 mg PO DAILY 08/14/12 12/17/16 Clopidogrel [Plavix] 75 mg PO DAILY 08/14/12 12/17/16 Isosorbide Mononitrate [Imdur] 120 mg PO BID 08/14/12 12/17/16 Metoprolol Tartrate 50 mg PO BID 08/14/12 12/17/16 Nitroglycerin [Nitrostat] 0.4 mg SL Q5MIN PRN 08/14/12 12/17/16 Cholecalciferol (Vitamin D3) 2,000 units PO DAILY 01/18/16 12/17/16 [Vitamin D3] Pantoprazole [Protonix] 40 mg PO DAILY 01/18/16 12/17/16 amLODIPine [Norvasc] 5 mg OP DAILY 01/18/16 12/17/16 Furosemide 40 mg PO DAILY 02/17/16 12/17/16 Tiotropium [place] [Spiriva] 1 inh IH DAILY 02/17/16 12/17/16 Beta Carotene 25,000 units PO DAILY 11/18/16 12/17/16 Budesonide 1 neb INH BID 11/18/16 12/17/16 Gentle Iron 28 mg PO DAILY 11/18/16 12/17/16 Ipratropium/Albuterol [Duoneb] 1 neb INH Q4HR PRN 11/18/16 12/17/16 Prosta [place] 1 - 2 cap PO DAILY 11/18/16 12/17/16 Lorazepam [Lorazepam Intensol] 0.25 mg SL Q6HR PRN 11/28/16 12/17/16 Morphine Sulfate [Morphine Sulf 5 mg SL Q4HR PRN 11/28/16 12/17/16 Oral (Roxanol)] - Allergies Allergies/Adverse Reactions: Allergies Allergy/AdvReac Type Severity Reaction Status Date / Time acetaminophen Allergy Severe Itching Verified 10/14/16 22:31 atorvastatin calcium * Allergy Severe Itching Verified 10/14/16 22:31 [From Lipitor] cephalexin Allergy Severe Itching Verified 10/14/16 22:31 erythromycin base Allergy Severe Edema Verified 10/14/16 22:31 [Erythromycin Base] corn starch AdvReac Severe Itching Uncoded 01/18/16 11:08 Review of Systems - Constitutional Constitutional: reports: Weight gain (about 150 eating better; not fluid weight) - Eyes Eyes: reports: Corrective lenses - Ears, Nose & Throat Ears, Nose & Throat: reports: Hearing loss, Hearing aids, Dentures - Cardiovascular Cariovascular: reports: Irregular heart rate, Chest pain (reviewed this episode ; attributes to "oxygen"; goes several day without any nitro needs; occasional 1 -2 times; but relief after on pill. Does not appear to be at a threshold needs to chane meiation), Exertional dyspnea, Decr. exercise tolerance - Respiratory Respiratory: reports: Wheezing, SOB with exertion, Other (gets very excited about oxygen;) - Gastrointestinal Gastrointestinal: denies: Constipation, Nausea, Reflux/heartburn - Genitourinary Genitourinary: reports: Urgency - Musculoskeletal Musculoskeletal: reports: Stiffness, Muscle weakness, Other (ambulates with 4WW) - Integumentary Integumentary: reports: Rash (upper arms; not new; fluctuates in severity) - Neurological Neurological: reports: General weakness, Memory problems, Abnormal gait - Psychiatric Psychiatric: reports: Anxiety - Endocrine Endocrine: reports: Intolerance to cold - Hematologic/Lymphatic Hematologic/Lymphatic: denies: Bruising - All Other Systems All Other Systems: reports: Reviewed and negative Physical Examination - Physical Exam General Appearance: positive: No acute distress, Anxious Eyes Bilateral: positive: Conjunctivae nml ENT: positive: No signs of dehydration Neck: positive: Trachea midline Respiratory: positive: Rhonchi, Other (has expiratory grating/fibrotic BS; anterior rhonchi clear with cough; prod. sputum of slightly pink) Cardiovascular: positive: Irregularly irregular, Systolic murmur Abdomen: positive: Nml bowel sounds, No distention Skin: positive: Pallor, Dryness, Rash (improved on forearms) Extremities: positive: No pedal edema Neurologic/Psychiatric: positive: Oriented x3, Other (patient with anxiety; some perserverating behaviors; has intermittent agitation) Palliative Care - POLST Patient has POLST: Yes POLST Status: DNR Pain: Pain unchanged Drowsiness: Mild (1-3) (drifts off easily) Nausea: None Anxiety: Moderate (4-6) Dyspnea: Moderate (4-6) Anorexia: None Insomnia: Sleeps well Constipation: No Feelings of wellbeing/Perceived Quality of Life: Improved Performance Status: Previous level of function prior to this episode []. Current level of functioning []. Palliative Care Performance Status []. - Palliative Care Discussion: Surrogate decision maker []. Patient/Family understanding of the illness []. Information preferences []. Most important goals []. Patient/Family concerns [] . Family conference []. Impression and Recommendations - Palliative Care Impression: This is a fiesty 86 year old gentleman with mild dementia and underlying anxiety disorder, with advanced COPD, and multiple complicating co-morbidities that leave him quite fragile. His symptoms despite the severity of his illnesses , are fairly well controlled. His daughter has returned to work, they have not found caregivers at this time, and patient feeling more vulnerable and anxious. Goals include trying to manage at home with focusing on quality of life issues, attempt to decreased hospitalizations, but recognizing his continued functional and cognitive decline may impact these outcomes. Recommendations/Counseling Done: 1. Advanced COPD, patient wearing his oxygen most of the time now, with perceived decrease in breathlessness and chest pain. Counseling done related to oxygen use/mechanics, limited understanding, resorted to CBT with teaching how to use the oximeter to reassure him it is working, as well as to take relaxations breaths and rest. Inst. daughter to get hand held fan as well to assist with feelings of anxiety during this time, perceived when fan was on in room it helped the oxygen. 2. Chest pain. Will follow up with Dr. Celio fitzgerald for transition to Ranexa , daughters understanding is this would be the next step from the isosorbide. Both myself and her, given the fragility of his situation, am concerned about making changes that may cause increase side effects. Reassured current regimen, with reported episodes of averaging about 2-3 times a week, was acceptable as these were easily relieved and patient activity level not limited by angina, but by fatigue and baseline dyspnea. 3. Anxiety. Daughter attempting to find caregiving support, needs assistance with bathing, and socialization. Palliative Care Consumer Advocate is attempting to make contact, will continue with volunteer referral as well. Patient reassured by end of visit, supportive listening for concerns. Hesitant to add medications at this time, but will monitor behaviors may need low dose seroquel or consider SSRI. 4. Advanced Care Planning. Given the level of anxiety will did not pursue finishing the POLST today, it is marked DNR and both patient and daughter in agreement. Do need to further explore goals regarding hospitalization, EOL preferences, and acceptable QOL thresholds in future visits. Time Spent: 45 minutes with greater than 50% done in counseling regarding management of symptoms, anxiety and anticipatory guidance.
== END 2016-12-17 16:16 | disposition home or self-care (01) ==
LOC: PC 16:15
PROVIDERS: ATTEND Nurse Practitioner Adult Health
DX: Z51.5 Encounter for palliative care (principal); J44.9 Chronic obstructive pulmonary disease, unspecified; I20.9 Angina pectoris, unspecified; F41.9 Anxiety disorder, unspecified; I48.91 Unspecified atrial fibrillation; E11.22 Type 2 diabetes mellitus with diabetic chronic kidney disease; I13.0 Hypertensive heart and chronic kidney disease with heart failure and stage 1 through stage 4 chronic kidney disease, or unspecified chronic kidney disease; N18.9 Chronic kidney disease, unspecified; Z95.0 Presence of cardiac pacemaker; Z66 Do not resuscitate; Z79.82 Long term (current) use of aspirin; Z79.891 Long term (current) use of opiate analgesic; Z79.51 Long term (current) use of inhaled steroids
CPT/HCPCS: 99349

== ENCOUNTER 2017-01-05 22:29 | Outpatient (CLI) | payer MEDICARE, OTHER | END 2017-01-05 22:30 | disposition EMS.NT | LOC: EMS 22:29 | PROVIDERS: ATTEND Surgery | DX: R06.00 Dyspnea, unspecified (principal); R07.9 Chest pain, unspecified ==

== ENCOUNTER 2017-01-06 05:23 | Outpatient (CLI) | payer MEDICARE, OTHER | END 2017-01-06 05:24 | disposition critical access hospital (66) | LOC: EMS 05:23 | PROVIDERS: ATTEND Surgery | DX: R41.0 Disorientation, unspecified (principal) | CPT/HCPCS: A0425; A0429 ==

== ENCOUNTER 2017-01-06 06:00 | Emergency (ER) | payer MEDICARE, OTHER ==
--- NOTE | 2017-01-06 07:37 | ED Physician Documentation ---
PD HPI CHEST PAIN - Stated complaint Stated Complaint: ALOC/UTI - Chief complaint Chief Complaint: Neuro - History obtained from History obtained from: Patient, EMS - History of Present Illness Timing - onset: Enter time (1200), Last night Timing - onset during: Rest Timing - duration: Hours (2) Timing - details: Gradual onset, Now resolved Quality: Pressure, Tightness Location: Left chest Improved by: Nitro Associated symptoms: No: Shortness of air, Diaphoresis Similar symptoms before: Diagnosis (CAD) Recently seen: Not recently seen - Additional information Additional information: 86-year-old male with a history of coronary artery disease awoke last night with chest pain. He realized he had not taken his isosorbide and he took it. He had called 911 last night and when medics arrived his pain was resolved and he decided not to come into the hospital. This morning when he awakened he felt that he should come into the hospital be checked out for the pain that he had in his chest last night. He denies any other current illness. He does state that he has a chronic cough chronic shortness of breath and does not believe this is changed. Review of Systems Constitutional: denies: Fever, Chills, Myalgias Eyes: denies: Decreased vision Ears: denies: Ear pain Nose: denies: Congestion Throat: denies: Sore throat Cardiac: reports: Chest pain / pressure. denies: Palpitations, Pedal edema, Calf pain Respiratory: reports: Dyspnea, Cough GI: denies: Abdominal Pain, Nausea, Vomiting, Constipation, Diarrhea : denies: Dysuria, Frequency PD PAST MEDICAL HISTORY - Past Medical History Past Medical History: Yes Cardiovascular: Hypertension, High cholesterol, Coronary artery disease, Angina , MS, Other Respiratory: COPD, Shortness of breath Neuro: TIA, Tremors Endocrine/Autoimmune: Type 2 diabetes GI: GERD, Ulcers : Renal insuffiency HEENT: Chronic vision loss, Chronic hearing loss Psych: Depression, Anxiety, Panic attacks Musculoskeletal: Osteoarthritis, Fatigue Derm: None - Past Surgical History Past Surgical History: Yes General: Colonoscopy Ortho: Arthroscopic surgery Cardiovascular: CABG, Pacemaker HEENT: Cataracts - Present Medications Home Medications: Ambulatory Orders Medication Instructions Recorded Confirmed Albuterol [Ventolin Hfa] 2 puffs INH Q4H PRN 08/14/12 12/17/16 Aspirin [Aspir 81] 81 mg PO DAILY 08/14/12 12/17/16 Clopidogrel [Plavix] 75 mg PO DAILY 08/14/12 12/17/16 Isosorbide Mononitrate [Imdur] 120 mg PO BID 08/14/12 12/17/16 Metoprolol Tartrate 50 mg PO BID 08/14/12 12/17/16 Nitroglycerin [Nitrostat] 0.4 mg SL Q5MIN PRN 08/14/12 12/17/16 Cholecalciferol (Vitamin D3) 2,000 units PO DAILY 01/18/16 12/17/16 [Vitamin D3] Pantoprazole [Protonix] 40 mg PO DAILY 01/18/16 12/17/16 amLODIPine [Norvasc] 5 mg OP DAILY 01/18/16 12/17/16 Furosemide 40 mg PO DAILY 02/17/16 12/17/16 Tiotropium [place] [Spiriva] 1 inh IH DAILY 02/17/16 12/17/16 Beta Carotene 25,000 units PO DAILY 11/18/16 12/17/16 Budesonide 1 neb INH BID 11/18/16 12/17/16 Gentle Iron 28 mg PO DAILY 11/18/16 12/17/16 Ipratropium/Albuterol [Duoneb] 1 neb INH Q4HR PRN 11/18/16 12/17/16 Prosta [place] 1 - 2 cap PO DAILY 11/18/16 12/17/16 Lorazepam [Lorazepam Intensol] 0.25 mg SL Q6HR PRN 11/28/16 12/17/16 Morphine Sulfate [Morphine Sulf 5 mg SL Q4HR PRN 11/28/16 12/17/16 Oral (Roxanol)] - Allergies Allergies/Adverse Reactions: Allergies Allergy/AdvReac Type Severity Reaction Status Date / Time acetaminophen Allergy Severe Itching Verified 01/06/17 06:13 atorvastatin calcium * Allergy Severe Itching Verified 01/06/17 06:13 [From Lipitor] cephalexin Allergy Severe Itching Verified 01/06/17 06:13 erythromycin base Allergy Severe Edema Verified 01/06/17 06:13 [Erythromycin Base] corn starch AdvReac Severe Itching Uncoded 01/06/17 06:13 - Social History Does the pt smoke?: No Smoking Status: Never smoker Does the pt drink ETOH?: No Does the pt have substance abuse?: No - Immunizations Immunizations are current?: Yes - POLST Patient has POLST: Yes PD ED PE NORMAL - Vitals Vital signs reviewed: Yes (tachypneic ) - General General: Well developed/nourished, Other (tachypnea at rest) - HEENT HEENT: Atraumatic, PERRL, EOMI, Other (hearing aids X 2 are not removed for exam ) - Cardiac Cardiac: No murmur, Other (bradycardic with distant sounds. ) - Respiratory Respiratory: Other (tacypnea at rest with bibasilar rhonchi worse on the left. ) - Abdomen Abdomen: Soft, Non tender - Back Back: No CVA TTP, No spinal TTP - Derm Derm: Normal color, Warm and dry, No rash - Extremities Extremities: No deformity, No edema - Neuro Neuro: No motor deficit, No sensory deficit, Normal speech - Psych Psych: Normal mood, Normal affect Results - Vitals Vitals: Vital Signs - 24 hr 01/06/17 01/06/17 01/06/17 05:59 06:55 07:33 Temperature 37.0 C Heart Rate 55 L 54 L 57 L Respiratory 29 H 27 H 22 Rate Blood Pressure 138/45 H 128/48 L 137/49 H O2 Saturation 96 96 96 01/06/17 01/06/17 01/06/17 08:00 09:30 10:28 Temperature Heart Rate 52 L 53 L 52 L Respiratory 23 21 21 Rate Blood Pressure 127/50 L 159/56 H O2 Saturation 95 93 01/06/17 01/06/17 11:28 12:34 Temperature Heart Rate 57 L 56 L Respiratory 20 Rate Blood Pressure 141/50 H 145/82 H O2 Saturation 94 96 Oxygen O2 Source Room air - Labs Labs: Laboratory Tests 01/06/17 01/06/17 01/06/17 08:17 08:17 08:17 WBC 6.6 RBC 3.48 L Hgb 10.8 L Hct 32.3 L MCV 92.9 MCH 30.9 MCHC 33.3 RDW 14.6 Plt Count 168 MPV 7.2 L Neut # 4.7 Lymph # 1.3 L Cass # 0.5 Eos # 0.1 Baso # 0.0 Absolute Nucleated RBC 0.00 Nucleated RBC % 0.0 Sodium 138 Potassium 4.2 Chloride 104 Carbon Dioxide 25 Anion Gap 9.0 BUN 32 H Creatinine 1.5 H Estimated GFR (MDRD) 44 L Glucose 137 H Calcium 8.8 Total Bilirubin 0.4 AST 15 ALT < 10 L Alkaline Phosphatase 68 Troponin I 0.04 B-Natriuretic Peptide Total Protein 6.6 L Albumin 3.3 Globulin 3.3 Albumin/Globulin Ratio 1.0 Lipase 15 L Urine Color Urine Clarity Urine pH Ur Specific [place] Urine Protein Urine Glucose (UA) Urine Ketones Urine Occult Blood Urine Nitrite Urine Bilirubin Urine Urobilinogen Ur Leukocyte Esterase Ur Microscopic Review Urine Culture Comments 01/06/17 01/06/17 08:17 11:00 WBC RBC Hgb Hct MCV MCH MCHC RDW Plt Count MPV Neut # Lymph # Cass # Eos # Baso # Absolute Nucleated RBC Nucleated RBC % Sodium Potassium Chloride Carbon Dioxide Anion Gap BUN Creatinine Estimated GFR (MDRD) Glucose Calcium Total Bilirubin AST ALT Alkaline Phosphatase Troponin I B-Natriuretic Peptide 154 H Total Protein Albumin Globulin Albumin/Globulin Ratio Lipase Urine Color YELLOW Urine Clarity CLEAR Urine pH 5.5 Ur Specific [place] 1.010 Urine Protein NEGATIVE Urine Glucose (UA) NEGATIVE Urine Ketones NEGATIVE Urine Occult Blood NEGATIVE Urine Nitrite NEGATIVE Urine Bilirubin NEGATIVE Urine Urobilinogen 0.2 (NORMAL) Ur Leukocyte Esterase NEGATIVE Ur Microscopic Review NOT INDICATED Urine Culture Comments NOT INDICATED - Rads (name of study) 2 view chest Radiology: Prelim report reviewed (Impression: 1. Cardiomegaly. Borderline vascular congestion. 2. Bilateral bronchial thickening with coarse basilar opacities which can be seen with bronchitis or reactive airways disease. No areas of dense consolidation.), EMP read indepedently, See rad report Procedures - IVC sono (time) 0730 Bedside IVC sono: IVC measures (cm) (1.54), IVC collapsed c insp (cm) (0.75), Euvolemia PD MEDICAL DECISION MAKING - ED course Complexity details: reviewed old records, reviewed results, re-evaluated patient , considered differential, d/w patient ED course: 86 y/o male with a history of CAD with an episode of chest pain lasting 2 hours last night has come to the hospital this morning without symptoms and wants to be checked out. I suspect this patient has stable angina and without his isosorbide likely had a hypertensive crisis resulting in angina.He has no angina now and no symptoms and no signs of damage. Departure - Departure Disposition: 01 Home, Self Care Clinical Impression: Angina at rest Condition: Stable Instructions: ED Chest Pain Angina Stable Follow-Up: Nicky Zuniga ARNP [Primary Care Provider] - Comments: Today it appears that you had this episode of chest pain last night when you were not taking your isosorbide. Take this on a regular basis. Discharge Date/Time: 01/06/17 12:59
[2017-01-06] MEDS ORDERED: IPRATROPIUM/ALBUTEROL 3 ML NEB INH STA (07:45)
[2017-01-06] MEDS ORDERED: IPRATROPIUM/ALBUTEROL 3 ML NEB INH ONE (08:10)
[2017-01-06 08:25] LABS: BASOPHILS % (AUTO) 0.2 %; EOSINOPHILS # (AUTO) 0.1 10^3/uL (0.0-0.7); EOSINOPHILS % (AUTO) 1.1 %; HCT - HEMATOCRIT 32.3 % (42.0-52.0); HGB - HEMOGLOBIN 10.8 g/dL (14.0-18.0); LYMPHOCYTES # (AUTO) 1.3 10^3/uL (1.5-3.5); LYMPHOCYTES % (AUTO) 19.6 %; MEAN CORPUSCULAR HEMOGLOBIN 30.9 pg (27.0-31.0); MEAN CORPUSCULAR HGB CONC 33.3 g/dL (32.0-36.0); MEAN CORPUSCULAR VOLUME 92.9 fL (80.0-94.0); MEAN PLATELET VOLUME 7.2 fL (7.4-11.4); MONOCYTES # (AUTO) 0.5 10^3/uL (0.0-1.0); MONOCYTES % (AUTO) 8.4 %; NEUTROPHILS # (AUTO) 4.7 10^3/uL (1.5-6.6); NEUTROPHILS % (AUTO) 70.7 %; RED BLOOD COUNT 3.48 10^6/uL (4.70-6.10); RED CELL DISTRIBUTION WIDTH 14.6 % (12.0-15.0); UNCORRECTED WHITE BLOOD COUNT 6.6 x10^3/uL; WHITE BLOOD COUNT 6.6 x10^3/uL (4.8-10.8)
--- NOTE | 2017-01-06 08:31 | XRAY Preliminary Report ---
Exam: XR Chest 2 View PA/LAT IMPRESSION: 1. Cardiomegaly. Borderline vascular congestion. 2. Bilateral bronchial thickening with coarse basilar opacities which can be seen with bronchitis or reactive airways disease. No areas of dense consolidation. [facility] SITE ID: [id number]
--- NOTE | 2017-01-06 08:34 | XRAY Report ---
EXAM: CHEST RADIOGRAPHY EXAM DATE: 01/06/2017 08:09 AM. CLINICAL HISTORY: Cough rhonchi in the left base. COMPARISON: 04/18/2016. 02/17/2016. TECHNIQUE: 2 views. FINDINGS: Lungs/Pleura: Vasculature is mildly prominent. There is bilateral bronchial thickening and coarse bas ilar opacities. Basilar pleural thickening. No pneumothorax. Mediastinum: Cardiomegaly. Aortic atherosclerosis. Other: Degenerative changes of the thoracic spine. IMPRESSION: 1. Cardiomegaly. Borderline vascular congestion. 2. Bilateral bronchial thickening with coarse basilar opacities which can be seen with bronchitis or reactive airways disease. No areas of dense consolidation. [facility] Referring Provider Line: [phone] SITE ID: [id number]
[2017-01-06 08:41] LABS: BILIRUBIN,TOTAL 0.4 mg/dL (0.2-1.0); BUN - BLOOD UREA NITROGEN 32 mg/dL (6-20); CALCIUM 8.8 mg/dL (8.5-10.3); CARBON DIOXIDE - CO2 25 mmol/L (21-32); CHLORIDE 104 mmol/L (101-111); CREATININE 1.5 mg/dL (0.6-1.2); GFR - MDRD 44 (>89); GLUCOSE 137 mg/dL (70-100); LIPASE 15 U/L (22-51); POTASSIUM 4.2 mmol/L (3.5-5.0); SODIUM 138 mmol/L (135-145); TOTAL PROTEIN 6.6 g/dL (6.7-8.2)
[2017-01-06 11:12] LABS: BILIRUBIN,URINE NEGATIVE (NEGATIVE); PH,URINE 5.5 PH (5.0-7.5)
[2017-01-06 11:16] LABS: UA CHARGE (STRIP ONLY) YES; UR CULTURE IF IND NOT INDICATED
[2017-01-06 12:36] VITALS: BP 145/82
== END 2017-01-06 12:59 | disposition home or self-care (01) ==
LOC: EDUNIT# → ED 06:00
DX: I25.119 Atherosclerotic heart disease of native coronary artery with unspecified angina pectoris (principal); I10 Essential (primary) hypertension; E78.00 Pure hypercholesterolemia, unspecified; I25.2 Old myocardial infarction; J44.9 Chronic obstructive pulmonary disease, unspecified; E11.9 Type 2 diabetes mellitus without complications; Z86.73 Personal history of transient ischemic attack (TIA), and cerebral infarction without residual deficits; K21.9 Gastro-esophageal reflux disease without esophagitis; N28.9 Disorder of kidney and ureter, unspecified; M19.90 Unspecified osteoarthritis, unspecified site; Z87.11 Personal history of peptic ulcer disease; Z79.82 Long term (current) use of aspirin
CPT/HCPCS: 36415; 71020; 80053; 81003; 83690; 83880; 84484; 85025; 93005; 94640; 99284; J7620; 81001; 87086

== ENCOUNTER 2017-01-09 11:00 | Outpatient (CLI) | payer MEDICARE, OTHER ==
[2017-01-09 18:38] LABS: BILIRUBIN,URINE NEGATIVE (NEGATIVE)
[2017-01-09 20:32] LABS: WBC,URINE >25 /HPF (0-3)
[2017-01-09 20:33] LABS: UR CULTURE IF IND INDICATED
== END 2017-01-09 11:01 | disposition home or self-care (01) ==
LOC: LAB.R 11:00
PROVIDERS: ATTEND Nurse Practitioner Family
DX: N39.0 Urinary tract infection, site not specified (principal)
CPT/HCPCS: 81001; 87086

== ENCOUNTER 2017-02-19 13:26 | Outpatient (CLI) | payer MEDICARE, OTHER ==
[2017-02-19 18:00] LABS: CALCIUM 9.2 mg/dL (8.5-10.3); CREATININE 1.4 mg/dL (0.6-1.2)
== END 2017-02-19 13:27 | disposition home or self-care (01) ==
LOC: LAB.F 13:26
PROVIDERS: ATTEND Nurse Practitioner Family
DX: N18.9 Chronic kidney disease, unspecified (principal)
CPT/HCPCS: 36415; 80048

== ENCOUNTER 2017-03-03 11:45 | Outpatient (CLI) | payer MEDICARE, OTHER | END 2017-03-03 11:46 | disposition critical access hospital (66) | LOC: EMS 11:45 | PROVIDERS: ATTEND Surgery | DX: R04.0 Epistaxis (principal) | CPT/HCPCS: A0425; A0429 ==

== ENCOUNTER 2017-03-03 12:23 | Emergency (ER) | payer MEDICARE, OTHER ==
[2017-03-03] MEDS ORDERED: OXYMETAZOLINE NASAL SPRAY NAS STA (14:12)
--- NOTE | 2017-03-03 14:13 | ED Physician Documentation ---
PD HPI HEENT - Stated complaint Stated Complaint: nosebleed - Chief complaint Chief Complaint: Heent - History obtained from History obtained from: Patient - History of Present Illness Timing - onset: How many hours ago (2), Today Timing - duration: Hours Timing - details: Abrupt onset (with apparent injury), Still present Location: Nose (right sided nosebleed) Improves: Other (pinching nose) Associated symptoms: No: Fever Similar symptoms before: Has not had sx before Recently seen: Not recently seen Review of Systems Constitutional: denies: Fever Nose: denies: Rhinorrhea / runny nose, Congestion Throat: denies: Sore throat Cardiac: denies: Chest pain / pressure Respiratory: denies: Dyspnea, Cough Endocrine: denies: Easy bruising / bleeding PD PAST MEDICAL HISTORY - Past Medical History Past Medical History: Yes Cardiovascular: Hypertension, High cholesterol, Coronary artery disease, Angina , [place], Other Respiratory: COPD, Shortness of breath Neuro: TIA, Tremors Endocrine/Autoimmune: Type 2 diabetes GI: GERD, Ulcers : Renal insuffiency HEENT: Chronic vision loss, Chronic hearing loss Psych: Depression, Anxiety, Panic attacks Musculoskeletal: Osteoarthritis, Fatigue Derm: None - Past Surgical History Past Surgical History: Yes General: Colonoscopy Ortho: Arthroscopic surgery Cardiovascular: CABG, Pacemaker HEENT: Cataracts - Present Medications Home Medications: Ambulatory Orders Medication Instructions Recorded Confirmed Albuterol [Ventolin Hfa] 2 puffs INH Q4H PRN 08/14/12 12/17/16 Aspirin [Aspir 81] 81 mg PO DAILY 08/14/12 12/17/16 Clopidogrel [Plavix] 75 mg PO DAILY 08/14/12 12/17/16 Isosorbide Mononitrate [Imdur] 120 mg PO BID 08/14/12 12/17/16 Metoprolol Tartrate 50 mg PO BID 08/14/12 12/17/16 Nitroglycerin [Nitrostat] 0.4 mg SL Q5MIN PRN 08/14/12 12/17/16 Cholecalciferol (Vitamin D3) 2,000 units PO DAILY 01/18/16 12/17/16 [Vitamin D3] Pantoprazole [Protonix] 40 mg PO DAILY 01/18/16 12/17/16 amLODIPine [Norvasc] 5 mg OP DAILY 01/18/16 12/17/16 Furosemide 40 mg PO DAILY 02/17/16 12/17/16 Tiotropium [place] [Spiriva] 1 inh IH DAILY 02/17/16 12/17/16 Beta Carotene 25,000 units PO DAILY 11/18/16 12/17/16 Budesonide 1 neb INH BID 11/18/16 12/17/16 Gentle Iron 28 mg PO DAILY 11/18/16 12/17/16 Ipratropium/Albuterol [Duoneb] 1 neb INH Q4HR PRN 11/18/16 12/17/16 Prosta [place] 1 - 2 cap PO DAILY 11/18/16 12/17/16 LORazepam [Lorazepam Intensol] 0.25 mg SL Q6HR PRN 11/28/16 12/17/16 Morphine Sulfate [Morphine Sulf 5 mg SL Q4HR PRN 11/28/16 12/17/16 Oral (Roxanol)] - Allergies Allergies/Adverse Reactions: Allergies Allergy/AdvReac Type Severity Reaction Status Date / Time acetaminophen Allergy Severe Itching Verified 01/06/17 06:13 atorvastatin calcium * Allergy Severe Itching Verified 01/06/17 06:13 [From Lipitor] cephalexin Allergy Severe Itching Verified 01/06/17 06:13 erythromycin base Allergy Severe Edema Verified 01/06/17 06:13 [Erythromycin Base] corn starch AdvReac Severe Itching Uncoded 01/06/17 06:13 - Social History Does the pt smoke?: No Smoking Status: Never smoker Does the pt drink ETOH?: No Does the pt have substance abuse?: No - Immunizations Immunizations are current?: Yes - POLST Patient has POLST: Yes PD ED PE NORMAL - Vitals Vital signs reviewed: Yes - General General: Alert and oriented X 3, No acute distress, Well developed/nourished - HEENT HEENT: Ears normal, Pharynx benign, Other (right anterior medial wall of nose with mild bleeding, stopped with pinching. Minimal blood back of throat. ) - Neck Neck: Supple, no meningeal sign, No adenopathy Results - Vitals Vitals: Oxygen O2 Source 2L blow by - Labs Labs: Laboratory Tests 03/03/17 03/03/17 03/03/17 14:30 14:30 14:30 WBC 5.5 RBC 3.58 L Hgb 11.4 L Hct 33.7 L MCV 94.0 MCH 31.9 H MCHC 33.9 RDW 14.9 Plt Count 173 MPV 7.0 L Neut # 3.6 Lymph # 1.4 L [place] # 0.4 Eos # 0.1 Baso # 0.0 Absolute Nucleated RBC 0.00 Nucleated RBC % 0.0 PT 11.6 INR 1.0 APTT 26.9 Sodium 140 Potassium 3.8 Chloride 107 Carbon Dioxide 28 Anion Gap 5.0 L BUN 28 H Creatinine 1.2 Estimated GFR (MDRD) 57 L Glucose 128 H Calcium 8.6 Magnesium 1.8 Total Bilirubin 0.5 AST 19 ALT 13 Alkaline Phosphatase 85 Total Protein 6.9 Albumin 3.6 Globulin 3.3 Albumin/Globulin Ratio 1.1 Lipase < 10 L Procedures - Epistaxis Site: Right Preparation: Clots removed, Afrin, Clamp / pressure applied Treatment: Silver Nitrate, Packing inserted Other: Observed - no bleeding, Pt tolerated well PD MEDICAL DECISION MAKING - ED course Complexity details: re-evaluated patient, considered differential, d/w patient Departure - Departure Disposition: 01 Home, Self Care Clinical Impression: Epistaxis Condition: Stable Record reviewed to determine appropriate education?: Yes Instructions: ED Nosebleed Follow-Up: Nicky Zuniga ARNP [Primary Care Provider] - Comments: Leave the foam packing in the nostril for a day. He can remove it gently yourself tomorrow or if you prefer can follow-up with your primary care or here in the ER for removal of it. It should just pull out gently. Return if bleeding occurs again. Your blood count appeared okay here today. Once the packing is out tomorrow, then gently moisturize or coat the inside of the nostril wall daily with Vaseline or antibiotic ointment or even saline spray. Do that for about a week as its healing. Discharge Date/Time: 03/03/17 16:30
[2017-03-03] MEDS ORDERED: OXYMETAZOLINE NASAL SPRAY NAS ONE (14:23)
[2017-03-03 14:35] LABS: BASOPHILS % (AUTO) 0.1 %; EOSINOPHILS # (AUTO) 0.1 10^3/uL (0.0-0.7); EOSINOPHILS % (AUTO) 1.1 %; HCT - HEMATOCRIT 33.7 % (42.0-52.0); HGB - HEMOGLOBIN 11.4 g/dL (14.0-18.0); LYMPHOCYTES # (AUTO) 1.4 10^3/uL (1.5-3.5); LYMPHOCYTES % (AUTO) 25.9 %; MEAN CORPUSCULAR HEMOGLOBIN 31.9 pg (27.0-31.0); MEAN CORPUSCULAR HGB CONC 33.9 g/dL (32.0-36.0); MONOCYTES # (AUTO) 0.4 10^3/uL (0.0-1.0); MONOCYTES % (AUTO) 7.9 %; NEUTROPHILS # (AUTO) 3.6 10^3/uL (1.5-6.6); RED BLOOD COUNT 3.58 10^6/uL (4.70-6.10); RED CELL DISTRIBUTION WIDTH 14.9 % (12.0-15.0); UNCORRECTED WHITE BLOOD COUNT 5.5 x10^3/uL; WHITE BLOOD COUNT 5.5 x10^3/uL (4.8-10.8)
[2017-03-03 14:43] LABS: PT - PROTHROMBIN TIME 11.6 secs (9.9-12.6)
[2017-03-03 14:49] LABS: ALBUMIN/GLOBULIN RATIO 1.1 (1.0-2.2); BILIRUBIN,TOTAL 0.5 mg/dL (0.2-1.0); BUN - BLOOD UREA NITROGEN 28 mg/dL (6-20); CALCIUM 8.6 mg/dL (8.5-10.3); CARBON DIOXIDE - CO2 28 mmol/L (21-32); CHLORIDE 107 mmol/L (101-111); CREATININE 1.2 mg/dL (0.6-1.2); GFR - MDRD 57 (>89); GLUCOSE 128 mg/dL (70-100); LIPASE < 10 U/L (22-51); MAGNESIUM 1.8 mg/dL (1.7-2.8); POTASSIUM 3.8 mmol/L (3.5-5.0); SODIUM 140 mmol/L (135-145); TOTAL PROTEIN 6.9 g/dL (6.7-8.2)
[2017-03-03 14:50] LABS: PARTIAL THROMBOPLASTIN TIME 26.9 secs (24.9-33.3)
[2017-03-03 15:07] VITALS: BP 140/55
== END 2017-03-03 16:30 | disposition home or self-care (01) ==
LOC: EDUNIT# → ED 12:23 → SUPCPDRO 12:23 → ED 16:30
DX: R04.0 Epistaxis (principal); I10 Essential (primary) hypertension; I25.10 Atherosclerotic heart disease of native coronary artery without angina pectoris; Z95.1 Presence of aortocoronary bypass graft; I25.2 Old myocardial infarction; Z95.0 Presence of cardiac pacemaker; J44.9 Chronic obstructive pulmonary disease, unspecified; E11.9 Type 2 diabetes mellitus without complications; N28.9 Disorder of kidney and ureter, unspecified; M19.90 Unspecified osteoarthritis, unspecified site; E78.00 Pure hypercholesterolemia, unspecified; K21.9 Gastro-esophageal reflux disease without esophagitis; Z86.73 Personal history of transient ischemic attack (TIA), and cerebral infarction without residual deficits; Z87.11 Personal history of peptic ulcer disease; Z79.82 Long term (current) use of aspirin
CPT/HCPCS: 30901; 36415; 80053; 83690; 83735; 85025; 85610; 85730; 99283; A9270

== ENCOUNTER 2017-03-13 08:41 | Outpatient (CLI) | payer MEDICARE, OTHER | END 2017-03-13 08:42 | disposition EMS.NT | LOC: EMS 08:41 | PROVIDERS: ATTEND Surgery | DX: Z03.89 Encounter for observation for other suspected diseases and conditions ruled out (principal) ==

== ENCOUNTER 2017-03-14 09:30 | Outpatient (CLI) | payer MEDICARE, OTHER ==
--- NOTE | 2017-03-14 11:25 | CONSULTATION NOTE ---
Palliative Care Follow Up - Referral Referring Provider: Nicky WATTS Time of Visit: Referral setting: Home Referral Reason: Angina/CAD/COPD - Information Sources Records reviewed: Previous records reviewed History/Review of Systems obtained from: Patient, Family (follow up with daughter Carie) Exam limitations: No limitations - History of Present Illness Update Brief HPI Update: This is an 86-year-old feisty gentleman with severe end-stage COPD, with a rolling and productive cough long-standing baseline, with harsh breath sounds throughout. He also has called multiple comorbidities including diastolic heart failure, atrial fib, pacemaker, DM, CKD, and most impactful is his chronic angina. Patient had had some improvement on continuous oxygen for his angina, recently saw his PCP who requested he use it only in the evening per his understanding. His perception is his angina has been more frequent, in fact he had called 911 yesterday, but had gotten relief by the time he taken his nitro and reapplied his oxygen. He had felt they were "somewhat annoyed with him". He also has underlying anxiety, some mild cognitive deficits, and is getting ready to transition to [facility] for a short respite stay. His daughter and her family are going to go support his granddaughter and the of the new baby. Today I find him feeling actually quite well. He has had no further chest pain today, though he does get breathlessness particularly on awakening. He has no lower extremity edema, he is remained weight neutral, and is quite engaged in visit today. Social History - Living Situation Living arrangement: At home Living Situation: Alone (family lives upstairs; patient independent with support from daughter with medications/meals paid caregiving for showering/ housework Daughter going to be out of town over holidays; patient to go to [facility] tomorrow; had interview yesterday with nurse) Support System: Patient lives in basement apartment of daughter's home, she does check on him frequently but works during the day. He has become more increasingly isolated. He is scheduled to move to [facility] tomorrow. This is to be a short respite stay of 2-3 weeks Medications/Allergies - Medications Home Medications: Ambulatory Orders Medication Instructions Recorded Confirmed Albuterol [Ventolin Hfa] 2 puffs INH Q4H PRN 08/14/12 12/17/16 Aspirin [Aspir 81] 81 mg PO DAILY 08/14/12 12/17/16 Clopidogrel [Plavix] 75 mg PO DAILY 08/14/12 12/17/16 Isosorbide Mononitrate [Imdur] 120 mg PO BID 08/14/12 12/17/16 Metoprolol Tartrate 50 mg PO BID 08/14/12 12/17/16 Nitroglycerin [Nitrostat] 0.4 mg SL Q5MIN PRN 08/14/12 12/17/16 Cholecalciferol (Vitamin D3) 2,000 units PO DAILY 01/18/16 12/17/16 [Vitamin D3] Pantoprazole [Protonix] 40 mg PO DAILY 01/18/16 12/17/16 amLODIPine [Norvasc] 5 mg OP DAILY 01/18/16 12/17/16 Furosemide 40 mg PO DAILY 02/17/16 12/17/16 Tiotropium [place] [Spiriva] 1 inh IH DAILY 02/17/16 12/17/16 Beta Carotene 25,000 units PO DAILY 11/18/16 12/17/16 Budesonide 1 neb INH BID 11/18/16 12/17/16 Gentle Iron 28 mg PO DAILY 11/18/16 12/17/16 Ipratropium/Albuterol [Duoneb] 1 neb INH Q4HR PRN 11/18/16 12/17/16 Prosta [place] 1 - 2 cap PO DAILY 11/18/16 12/17/16 LORazepam [Lorazepam Intensol] 0.25 mg SL Q6HR PRN 11/28/16 12/17/16 Morphine Sulfate [Morphine Sulf 5 mg SL Q4HR PRN 11/28/16 12/17/16 Oral (Roxanol)] - Allergies Allergies/Adverse Reactions: Allergies Allergy/AdvReac Type Severity Reaction Status Date / Time acetaminophen Allergy Severe Itching Verified 01/06/17 06:13 atorvastatin calcium * Allergy Severe Itching Verified 01/06/17 06:13 [From Lipitor] cephalexin Allergy Severe Itching Verified 01/06/17 06:13 erythromycin base Allergy Severe Edema Verified 01/06/17 06:13 [Erythromycin Base] corn starch AdvReac Severe Itching Uncoded 01/06/17 06:13 Review of Systems - Constitutional Constitutional: reports: Fatigue, Poor appetite, Weight loss (staying somewhat neutral 141 at provider office) - Eyes Eyes: reports: Vision loss - Ears, Nose & Throat Ears, Nose & Throat: reports: Hearing loss, Hearing aids, Nosebleeds (severe nose bleed earlier this month; had small one yesterday but resolved none today) , Nasal congestion - Cardiovascular Cardiovascular: reports: Irregular heart rate, Chest pain (called medics yesterday; on third nitro; go relief with oxygen; feels angina worse since not using oxygen during day), Exertional dyspnea, Decr. exercise tolerance, Other ( reports poor circulation in feet;) - Respiratory Respiratory: reports: Cough, Sputum production (baseline rolling cough; swallows secreations), SOB at rest, SOB with exertion - Gastrointestinal Gastrointestinal: reports: Early satiety. denies: Constipation, Nausea, Reflux/ heartburn - Genitourinary Genitourinary: reports: Frequency (mostly in AM), Urgency - Musculoskeletal Musculoskeletal: reports: Back pain (mostly in upper cervical area; usually responds to aPAP), Stiffness, Muscle weakness, Assistive devices (uses walker for longer distances) - Integumentary Integumentary: reports: Dryness - Neurological Neurological: reports: General weakness, Memory problems (for most part with good recall; does perseverate on past happenings) - Psychiatric Psychiatric: reports: Depression (feels isolated and lonely), Anxiety (severe with upcoming stay at [facility]) - Endocrine Endocrine: reports: Intolerance to cold - Hematologic/Lymphatic Hematologic/Lymphatic: denies: Recurrent infections - All Other Systems All Other Systems: reports: Reviewed and negative - Other Findings Other Findings: Unable to review patient's current medications, as daughter is not home. Per patient's recall does not feel there has been any changes. Physical Exam - Vital Signs Temperature: 98.3 C Pulse Rate: 63 Respiratory Rate: 20 O2 Saturation: 96 (ra@ rest) Blood Pressure: 128/64 - Physical Exam General Appearance: positive: No acute distress, Anxious Eyes Bilateral: positive: Normal inspection ENT: positive: ENT inspection nml, Other (left nostril slightly reddened) Neck: positive: No JVD, Trachea midline Cardiovascular: positive: Irregular, Diastolic murmur Respiratory: positive: Rhonchi (coarse breath sounds throughout; patients norm) Abdomen: positive: Non-tender, Soft Skin: positive: Pallor, Dryness Extremities: positive: No pedal edema, Other (feet dusky in color) Neurologic/Psychiatric: positive: Oriented x3, Weakness, Depressed mood/affect, Other (very distressed about oxygen "situation"; perceives angina worse sense "told" to be off it during the day) Palliative Care - POLST Patient has POLST: Yes POLST Status: DNR, Comfort Measures Pain: Pain unchanged, Location (back of neck; attributes to tension) Tiredness/Fatigue: Moderate (4-6) Drowsiness/Sedation: None Nausea: None Depression: Moderate (4-6) Anxiety: Severe (7-10) Dyspnea: Moderate (4-6) Anorexia: Mild (1-3) Sleep: Sleeps well Constipation: No Feelings of wellbeing/Perceived Quality of Life: Fair, Acceptable, Worsening Performance Status: Patient able to ambulate short distances within home setting, uses walker for longer distances. He does need some standby assist for safety for bathing, family provides most meal prep, patient is able to access food and warm. - Palliative Care Discussion: Patient does present as somewhat lonely, and isolated. He reports he does like to watch TV but this gets boring. He reports " does not scare me". There does appear to get quite anxious when he has chest pain. We did discuss in the context that he has usually recovered after his nitro and oxygen, has not had an end-of-life event, is what is so frightening for him. He reports that is the thought of no relief and dying in pain. He is somewhat anxious as far as going to [employer], he reports a nurse came and interviewed him yesterday with some relief of this anxiety. His daughter is expressing concern that he may do something to sabotage this given his level of anxiety and past behaviors. Impression and Recommendations - Palliative Care Impression: This is a feisty 86-year-old gentleman with underlying anxiety disorder, advanced COPD, and recurrent angina. Despite his fragility, he has continued to do really well, managing at home. Patient's perception with decrease use of oxygen his symptoms regarding his angina have increased. Patient goals are to stay as independent as long as possible, though recognizing the seriousness of his illness. Recommendations/Counseling Done: 1. Recurrent angina, this is multifactorial in origin including exacerbated by his anxiety. We did discuss in the context of what does seem to provide him relief, he can use the oxygen more frequently particularly when he is active or having increased chest pain. We also discussed pacing his use of nitro, enlisting the oxygen sooner in his episode, and waiting for the relief versus calling 911 right off. Patient has acknowledge that he often does not wait for the oxygen and nitro to work, he gets reassurance with the EMS particularly when he is a lone. We did discuss in the context of his new setting he can call for someone to be with him during this time and provide support. 2. Advanced COPD. Patient is maximally managed on his current nebulizers, he is able to report compliance and use of his medications. His daughter will set up Mediset's for transition time. Counseling regarding pacing of activities as well as reviewed oxygen use. 3. Anxiety. This too is multifactorial in origin, it is escalating with concerns regarding impending stay at [facility]. Medical palliative care social media director has met with him last week, plan is to stagger visits for support , he also is interested in meeting with the guest service aide. Will make this 3 referral. He reports he is a lapse Sikh, but is interested in doing life review and exploring "spiritual "matters. 4. Advanced care planning. Patient does have PAULA ST in place, with DNAR/ Comfort measures.Given patient's underlying anxiety tends to call 911 frequently , but does have multiple comorbidities and at times high symptom burden, which makes his situation more complex. Patient is at high risk for a end-of-life event, given his fragility, and multiple comorbidities. It may be challenging to avoid interaction with the healthcare system through the ED, and/or EMS with a transition to new setting given the multiple variables. Care plan for palliative care team share with son in law at end of visit, to help support a successful transition. Time Spent: 45 minutes with greater than 50% of this done in counseling regarding oxygen use , management of chest pain, addressing anxiety and feelings of grief and loss as well as anticipatory guidance
== END 2017-03-14 09:31 | disposition home or self-care (01) ==
LOC: PC 09:30
PROVIDERS: ATTEND Nurse Practitioner Adult Health
DX: Z51.5 Encounter for palliative care (principal); I20.8 Other forms of angina pectoris; J44.9 Chronic obstructive pulmonary disease, unspecified; F41.9 Anxiety disorder, unspecified; I50.30 Unspecified diastolic (congestive) heart failure; I48.91 Unspecified atrial fibrillation; Z95.0 Presence of cardiac pacemaker; E11.9 Type 2 diabetes mellitus without complications; N18.9 Chronic kidney disease, unspecified; Z99.81 Dependence on supplemental oxygen; Z79.82 Long term (current) use of aspirin; Z79.891 Long term (current) use of opiate analgesic; Z79.51 Long term (current) use of inhaled steroids; R53.83 Other fatigue; M62.81 Muscle weakness (generalized); F32.9 Major depressive disorder, single episode, unspecified; M54.2 Cervicalgia; Z66 Do not resuscitate
CPT/HCPCS: 99349

== ENCOUNTER 2017-03-19 12:45 | Outpatient (CLI) | payer MEDICARE, OTHER ==
--- NOTE | 2017-03-19 17:03 | CONSULTATION NOTE ---
Palliative Care Follow Up - Referral Referring Provider: Nicky WATTS Time of Visit: [id number] Referral setting: Assisted living Referral Reason: COPD/Angina/Transition to assisted living - Information Sources History/Review of Systems obtained from: Patient, Caregiver (follow up with Bonnie Chilel RN at [facility]) Exam limitations: No limitations - History of Present Illness Update Brief HPI Update: Andreina is a feisty 86-year-old gentleman with severe end-stage COPD, with a rolling productive cough long-standing at his baseline, has rhonchi throughout. He continues with multiple comorbidities including diastolic heart failure, atrial fib, pacemaker, DM, CKD, his angina actually has improved. He most recently was relocated to [facility] living to accommodate a respite stay for his daughter, I am seeing him today in this setting to facilitate transition as well as oversight. His stepson Jim is present for the visit. Patient actually is doing fairly well, he has had no angina since his stay here , he has used oxygen intermittently with any relief of pending concern. He is quite unhappy fellow and discontent, reports he quotes in a half-way". He does have underlying is short-term memory issues and has had some difficulty navigating the facility, though does go downstairs for meals. Social History - Living Situation Living arrangement: Assisted living ([facility] for 3 weeks) Support System: He has a daughter Carie who is his primary oversight and caregiver, he also has 3 stepsons who are less involved in this care though Jim the son who is here today is planning to see him weekly and assist with support during this time. He comes from [place]. Medications/Allergies - Medications Home Medications: Ambulatory Orders Medication Instructions Recorded Confirmed Albuterol [Ventolin Hfa] 2 puffs INH Q4H PRN 08/14/12 12/17/16 Aspirin [Aspir 81] 81 mg PO DAILY 08/14/12 12/17/16 Clopidogrel [Plavix] 75 mg PO DAILY 08/14/12 12/17/16 Isosorbide Mononitrate [Imdur] 120 mg PO BID 08/14/12 12/17/16 Metoprolol Tartrate 50 mg PO BID 08/14/12 12/17/16 Nitroglycerin [Nitrostat] 0.4 mg SL Q5MIN PRN 08/14/12 12/17/16 Cholecalciferol (Vitamin D3) 2,000 units PO DAILY 01/18/16 12/17/16 [Vitamin D3] Pantoprazole [Protonix] 40 mg PO DAILY 01/18/16 12/17/16 amLODIPine [Norvasc] 5 mg OP DAILY 01/18/16 12/17/16 Furosemide 40 mg PO DAILY 02/17/16 12/17/16 Tiotropium [place] [Spiriva] 1 inh IH DAILY 02/17/16 12/17/16 Beta Carotene 25,000 units PO DAILY 11/18/16 12/17/16 Budesonide 1 neb INH BID 11/18/16 12/17/16 Gentle Iron 28 mg PO DAILY 11/18/16 12/17/16 Ipratropium/Albuterol [Duoneb] 1 neb INH Q4HR PRN 11/18/16 12/17/16 Prosta [place] 1 - 2 cap PO DAILY 11/18/16 12/17/16 LORazepam [Lorazepam Intensol] 0.25 mg SL Q6HR PRN 11/28/16 12/17/16 Morphine Sulfate [Morphine Sulf 5 mg SL Q4HR PRN 11/28/16 12/17/16 Oral (Roxanol)] - Allergies Allergies/Adverse Reactions: Allergies Allergy/AdvReac Type Severity Reaction Status Date / Time acetaminophen Allergy Severe Itching Verified 01/06/17 06:13 atorvastatin calcium * Allergy Severe Itching Verified 01/06/17 06:13 [From Lipitor] cephalexin Allergy Severe Itching Verified 01/06/17 06:13 erythromycin base Allergy Severe Edema Verified 01/06/17 06:13 [Erythromycin Base] corn starch AdvReac Severe Itching Uncoded 01/06/17 06:13 Review of Systems - Constitutional Constitutional: reports: Fatigue, Weight stable - Eyes Eyes: reports: Vision loss - Ears, Nose & Throat Ears, Nose & Throat: reports: Hearing loss, Hearing aids - Cardiovascular Cardiovascular: reports: Irregular heart rate, Exertional dyspnea, Decr. exercise tolerance. denies: Chest pain (denies any chest pain or nitro use since at [facility]; reports using oxygen with relief) - Respiratory Respiratory: reports: Cough, Sputum production (no change from baseline), SOB with exertion - Gastrointestinal Gastrointestinal: reports: Good appetite (likes the food). denies: Constipation - Genitourinary Genitourinary: reports: Frequency - Musculoskeletal Musculoskeletal: reports: Stiffness, Muscle weakness, Assistive devices (using walker to go to meals) - Integumentary Integumentary: reports: Dryness - Neurological Neurological: reports: General weakness, Memory problems (STM at times) - Psychiatric Psychiatric: reports: Anxiety (reports feels like a half-way; very angry at family ; morelia Fernandez was visiting at time of check in) - Endocrine Endocrine: reports: Intolerance to cold - All Other Systems All Other Systems: reports: Reviewed and negative Physical Exam - Vital Signs Temperature: 98.9 C Pulse Rate: 56 Respiratory Rate: 20 O2 Saturation: 96 (ra @ rest) Blood Pressure: 122/72 - Physical Exam General Appearance: positive: Mild distress, Moderate distress ENT: positive: No signs of dehydration Neck: positive: No JVD, Trachea midline Cardiovascular: positive: Irregular Respiratory: positive: Rhonchi (through out/baseline; rolling cough) Abdomen: positive: Non-tender, Soft, Nml bowel sounds Skin: positive: Pallor, Dryness Extremities: positive: No pedal edema Neurologic/Psychiatric: positive: Oriented x3, Depressed mood/affect Palliative Care - POLST Patient has POLST: Yes POLST Status: DNR, Comfort Measures Pain: No pain Tiredness/Fatigue: Moderate (4-6) Drowsiness/Sedation: Mild (1-3) Nausea: None Depression: Moderate (4-6) Anxiety: Severe (7-10) Dyspnea: Moderate (4-6) Anorexia: None Sleep: Sleeps well Constipation: No Feelings of wellbeing/Perceived Quality of Life: Fair, Acceptable, Worsening Performance Status: Patient is ambulating down to meals with assistance from clinical staff, he uses his 4 wheeled walker. He is walking independently within the facility itself. He does spend most of his time sitting on his couch. He remains quite a "unhappy camper". He does have bathing assist if needed, he does not have any shower chair I did follow up with staff to make sure we have a safe environment for his bathing and that he has assistance. I put him at a palliative care performance status at 50% - Palliative Care Discussion: Patient does perceive himself as quite frail, he reports he has only weeks to months to live, he just denies any distress with this. When asked specifically what has triggered this, he is unable to say. He is quite angry with his family for "abandoning him over the holidays". He is able to acknowledge that the of the baby was not meant to impact his feeling of noninclusion at this point in time. Is able to acknowledge that this is a short period of time , and though he remains unhappy this is what the situation is currently. I did speak with Bonnie Womack RN at the facility, she reports he has had difficulty finding his room, does feel somewhat overwhelmed, they are doing things to try and facilitate ease with this. She reports he does seem to enjoy interaction with staff, they are checking on him frequently. Impression and Recommendations - Palliative Care Impression: This is an 86-year-old gentleman who has end-stage COPD and CAD. His angina is currently controlled, he remains quite distressed and unhappy with his current situation, though he is in a safe situation. He does have his Mediset set up and is self administering medications. He is using his nebulizer as instructed. Arrangements have been made to facilitate his ability to better participate in activities, as well as to decrease his isolation. Despite all these accommodations, patient remains quite vocal in his disapproval. Recommendations/Counseling Done: 1. Angina. Currently does appear to be well controlled. He does have his oxygen readily available, he has not needed to use his nitro that he is less active in his current situation. 2. Advanced COPD. Patient does have underlying rolling cough, shortness of breath, and intermittent dyspnea. In his current situation does not have his comfort meds available, but has not needed to initiate any of these up to this point in time. His Mediset's are set up, unfortunately I do not have an accurate list to confirm. But he is taking his meds appropriately from his Mediset's we did review this, and he feels comfortable with his current set up. 3. Anxiety. This is multifactorial in origin, and he is quite unhappy feeling like "he is in a half-way". Though he does report he they get points for food, he does like the staff and finds those interactions really supportive, is unable to really pinpoint other than he does not have his things. We did discuss in the context of he could have been in a fdc which had been out more difficult setting, he is quite safe, he has have quite a bit of people checking on him. And that this is very short term. Did try to direct him into reframing and control him out of some of his crabbiness. I am having the palliative care adhesive sprayer check on him weekly, as well as the CIRCULATOR is to be meeting with him next week. 4. Advanced care planning patient does have a PAULA ST in place copy was given to the facility. He does perceive himself as having a limited life expectancy, with some insight into the seriousness of his illness. He reports he is not currently fearful of dying, is just curious about the process. He is at high risk for hospitalization and interaction with the ED, provided counseling and support and anticipatory guidance and reassurance with his current situation. Time Spent: 45 minutes with greater than 50% of this done in counseling regarding management of current anxiety, cognitive behavioral therapeutic techniques employed for reframing his current situation and managing anxiety, coordination with clinical staff regarding patient's care needs, particularly around bathing and support as well as medication adherence and anticipatory guidance was provided
== END 2017-03-19 12:46 | disposition home or self-care (01) ==
LOC: PC 12:45
PROVIDERS: ATTEND Nurse Practitioner Adult Health
DX: Z51.5 Encounter for palliative care (principal); I20.9 Angina pectoris, unspecified; J44.9 Chronic obstructive pulmonary disease, unspecified; F41.9 Anxiety disorder, unspecified; R05 Cough; I50.9 Heart failure, unspecified; I48.91 Unspecified atrial fibrillation; Z95.0 Presence of cardiac pacemaker; E11.22 Type 2 diabetes mellitus with diabetic chronic kidney disease; N18.9 Chronic kidney disease, unspecified; Z99.81 Dependence on supplemental oxygen; Z79.891 Long term (current) use of opiate analgesic; Z79.51 Long term (current) use of inhaled steroids; R53.83 Other fatigue; M62.81 Muscle weakness (generalized); F32.9 Major depressive disorder, single episode, unspecified

== ENCOUNTER 2017-05-22 10:55 | Outpatient (CLI) | payer MEDICARE, OTHER | END 2017-05-22 10:56 | disposition EMS.NT | LOC: EMS 10:55 | PROVIDERS: ATTEND Surgery | DX: R04.0 Epistaxis (principal) ==

== ENCOUNTER 2017-05-22 12:19 | Outpatient (CLI) | payer MEDICARE, OTHER | END 2017-05-22 12:20 | disposition EMS.NT | LOC: EMS 12:19 | PROVIDERS: ATTEND Surgery | DX: R04.0 Epistaxis (principal) ==

== ENCOUNTER 2017-06-03 23:55 | Outpatient (CLI) | payer MEDICARE, OTHER | END 2017-06-03 23:56 | disposition critical access hospital (66) | LOC: EMS 23:55 | PROVIDERS: ATTEND Surgery | DX: R05 Cough (principal) | CPT/HCPCS: A0425; A0429 ==

== ENCOUNTER 2017-06-04 00:34 | Emergency (ER) | payer MEDICARE, OTHER ==
[2017-06-04] MEDS ORDERED: IPRATROPIUM/ALBUTEROL 3 ML NEB INH STA (00:37)
[2017-06-04 01:03] LABS: BASOPHILS % (AUTO) 0.1 %; EOSINOPHILS % (AUTO) 0.3 %; HGB - HEMOGLOBIN 11.3 g/dL (14.0-18.0); LYMPHOCYTES # (AUTO) 1.3 10^3/uL (1.5-3.5); LYMPHOCYTES % (AUTO) 10.8 %; MEAN CORPUSCULAR HEMOGLOBIN 32.2 pg (27.0-31.0); MEAN CORPUSCULAR HGB CONC 34.2 g/dL (32.0-36.0); MEAN CORPUSCULAR VOLUME 94.2 fL (80.0-94.0); MEAN PLATELET VOLUME 7.1 fL (7.4-11.4); MONOCYTES # (AUTO) 0.8 10^3/uL (0.0-1.0); MONOCYTES % (AUTO) 6.6 %; NEUTROPHILS % (AUTO) 82.2 %; PLT - PLATELET COUNT 190 10^3/uL (130-450); RED BLOOD COUNT 3.51 10^6/uL (4.70-6.10); RED CELL DISTRIBUTION WIDTH 13.4 % (12.0-15.0); WHITE BLOOD COUNT 12.1 x10^3/uL (4.8-10.8)
[2017-06-04 01:11] LABS: ALBUMIN 3.8 g/dL (3.2-5.5); ALBUMIN/GLOBULIN RATIO 1.2 (1.0-2.2); ALKALINE PHOSPHATASE 72 IU/L (42-121); ALT ALANINE AMINOTRANSFERASE 12 IU/L (10-60); AST ASPARTATE AMINOTRANSFERASE 19 IU/L (10-42); BILIRUBIN,TOTAL 0.5 mg/dL (0.2-1.0); BUN - BLOOD UREA NITROGEN 31 mg/dL (6-20); CARBON DIOXIDE - CO2 27 mmol/L (21-32); CHLORIDE 105 mmol/L (101-111); CREATININE 1.2 mg/dL (0.6-1.2); GFR - MDRD 57 (>89); GLUCOSE 127 mg/dL (70-100); LIPASE < 10 U/L (22-51); SODIUM 140 mmol/L (135-145)
--- NOTE | 2017-06-04 02:41 | XRAY Preliminary Report ---
Exam: XR CHEST 2 VIEW X-RAY IMPRESSION: 1. Cardiomegaly and postoperative changes with mild bibasilar atelectasis or infiltrate and possible trace pleural effusions. 2. Bronchial wall thickening. This can be seen with bronchitis or reactive airways disease. [facility] SITE ID: [id number]
--- NOTE | 2017-06-04 02:41 | XRAY Report ---
EXAM: CHEST RADIOGRAPHY EXAM DATE: 06/04/2017 02:22 AM. CLINICAL HISTORY: Cough. COMPARISON: 01/06/2017. TECHNIQUE: 2 views. FINDINGS: Lungs/Pleura: Bronchial wall thickening. Possible trace pleural effusions. Mild bibasilar atelectasis or infiltrate. No pneumothorax seen. Mediastinum: Mild cardiomegaly. Aortic atherosclerosis. Other: Median sternotomy and CABG. Implanted pacemaker is unchanged. IMPRESSION: 1. Cardiomegaly and postoperative changes with mild bibasilar atelectasis or infiltrate and possible trace pleural effusions. 2. Bronchial wall thickening. This can be seen with bronchitis or reactive airways disease. [facility] Referring Provider Line: [phone] SITE ID: [id number]
--- NOTE | 2017-06-04 03:28 | ED Physician Documentation ---
PD HPI DYSPNEA - Stated complaint Stated Complaint: COUGH - Chief complaint Chief Complaint: General - History obtained from History obtained from: Patient, EMS - History of Present Illness Timing - onset: Today Timing - details: Abrupt onset, Now resolved Improved by: O2, Inhaler/neb Associated symptoms: Cough, Wheezing. No: Fever Similar symptoms before: Work up / diagnostics, Treatment Recently seen: Not recently seen - Additional information Additional information: patient is an 87 year male with a history of copd who is presenting to the emergency department for cough. According to patient and ems patient had a coughing spell earlier this evening and it would not stop. EMS was called. When ems arrived patient's symptoms had resolved but the family wanted him to come in since he had some chest pain the night before that resolved with nitro. Review of Systems Constitutional: denies: Fever, Chills Eyes: reports: Reviewed and negative Ears: reports: Reviewed and negative Nose: denies: Rhinorrhea / runny nose, Congestion Throat: denies: Sore throat Cardiac: denies: Chest pain / pressure, Palpitations Respiratory: reports: Cough, Wheezing GI: denies: Nausea, Vomiting : reports: Reviewed and negative Skin: denies: Rash, Lesions Musculoskeletal: denies: Extremity pain, Extremity swelling Neurologic: denies: Generalized weakness, Focal weakness, Numbness, Headache, Head injury Immunocompromised: denies: Immunocompromised PD PAST MEDICAL HISTORY - Past Medical History Cardiovascular: Hypertension, High cholesterol, Coronary artery disease, Angina , [place], Other Respiratory: COPD, Shortness of breath Neuro: TIA, Tremors Endocrine/Autoimmune: Type 2 diabetes GI: GERD, Ulcers : Renal insuffiency HEENT: Chronic vision loss, Chronic hearing loss Psych: Depression, Anxiety, Panic attacks Musculoskeletal: Osteoarthritis, Fatigue Derm: None - Past Surgical History Past Surgical History: Yes General: Colonoscopy Ortho: Arthroscopic surgery Cardiovascular: CABG, Pacemaker HEENT: Cataracts - Present Medications Home Medications: Ambulatory Orders Medication Instructions Recorded Confirmed Albuterol [Ventolin Hfa] 2 puffs INH Q4H PRN 08/14/12 12/17/16 Aspirin [Aspir 81] 81 mg PO DAILY 08/14/12 12/17/16 Clopidogrel [Plavix] 75 mg PO DAILY 08/14/12 12/17/16 Isosorbide Mononitrate [Imdur] 120 mg PO BID 08/14/12 12/17/16 Metoprolol Tartrate 50 mg PO BID 08/14/12 12/17/16 Nitroglycerin [Nitrostat] 0.4 mg SL Q5MIN PRN 08/14/12 12/17/16 Cholecalciferol (Vitamin D3) 2,000 units PO DAILY 01/18/16 12/17/16 [Vitamin D3] Pantoprazole [Protonix] 40 mg PO DAILY 01/18/16 12/17/16 amLODIPine [Norvasc] 5 mg OP DAILY 01/18/16 12/17/16 Furosemide 40 mg PO DAILY 02/17/16 12/17/16 Tiotropium [place] [Spiriva] 1 inh IH DAILY 02/17/16 12/17/16 Beta Carotene 25,000 units PO DAILY 11/18/16 12/17/16 Budesonide 1 neb INH BID 11/18/16 12/17/16 Gentle Iron 28 mg PO DAILY 11/18/16 12/17/16 Ipratropium/Albuterol [Duoneb] 1 neb INH Q4HR PRN 11/18/16 12/17/16 Prosta [place] 1 - 2 cap PO DAILY 11/18/16 12/17/16 LORazepam [Lorazepam Intensol] 0.25 mg SL Q6HR PRN 11/28/16 12/17/16 Morphine Sulfate [Morphine Sulf 5 mg SL Q4HR PRN 11/28/16 12/17/16 Oral (Roxanol)] Levofloxacin [Levaquin] 750 mg PO DAILY #4 tablet 06/04/17 - Allergies Allergies/Adverse Reactions: Allergies Allergy/AdvReac Type Severity Reaction Status Date / Time acetaminophen Allergy Severe Itching Verified 01/06/17 06:13 atorvastatin calcium * Allergy Severe Itching Verified 01/06/17 06:13 [From Lipitor] cephalexin Allergy Severe Itching Verified 01/06/17 06:13 erythromycin base Allergy Severe Edema Verified 01/06/17 06:13 [Erythromycin Base] corn starch AdvReac Severe Itching Uncoded 01/06/17 06:13 - Social History Does the pt smoke?: No Smoking Status: Never smoker Does the pt drink ETOH?: No Does the pt have substance abuse?: No - Immunizations Immunizations are current?: Yes - POLST Patient has POLST: Yes PD ED PE NORMAL - Vitals Vital signs reviewed: Yes - General General: Alert and oriented X 3, No acute distress - HEENT HEENT: Atraumatic, PERRL - Neck Neck: Supple, no meningeal sign - Cardiac Cardiac: No murmur - Abdomen Abdomen: Soft, Non tender, Non distended - Derm Derm: Normal color - Extremities Extremities: No edema, No calf tenderness / cord - Neuro Neuro: Alert and oriented X 3 Eye Opening: Spontaneous Motor: Obeys Commands Verbal: Oriented GCS Score: 15 PD ED PE EXPANDED - HEENT HEENT: Dry mucous membranes - Respiratory Respiratory: Wheezing, Rhonchi, Right upper lobe, Left upper lobe. No: Distress , Labored Results - Vitals Vitals: Vital Signs - 24 hr 06/04/17 06/04/17 06/04/17 00:35 01:10 01:42 Temperature 36.6 C Heart Rate 70 50 L 52 L Respiratory 19 24 25 H Rate Blood Pressure 144/64 H 122/53 L O2 Saturation 94 94 Oxygen O2 Source Room air - EKG (time done) 0044 Rate: Rate (enter#) (54) Rhythm: Paced - Labs Labs: Laboratory Tests 06/04/17 06/04/17 06/04/17 00:50 00:50 00:50 WBC 12.1 H RBC 3.51 L Hgb 11.3 L Hct 33.1 L MCV 94.2 H MCH 32.2 H MCHC 34.2 RDW 13.4 Plt Count 190 MPV 7.1 L Neut # 10.0 H Lymph # 1.3 L [place] # 0.8 Eos # 0.0 Baso # 0.0 Absolute Nucleated RBC 0.00 Nucleated RBC % 0.0 Sodium 140 Potassium 4.0 Chloride 105 Carbon Dioxide 27 Anion Gap 8.0 BUN 31 H Creatinine 1.2 Estimated GFR (MDRD) 57 L Glucose 127 H Calcium 9.0 Total Bilirubin 0.5 AST 19 ALT 12 Alkaline Phosphatase 72 Troponin I 0.06 B-Natriuretic Peptide Total Protein 7.0 Albumin 3.8 Globulin 3.2 Albumin/Globulin Ratio 1.2 Lipase < 10 L 06/04/17 00:50 WBC RBC Hgb Hct MCV MCH MCHC RDW Plt Count MPV Neut # Lymph # [place] # Eos # Baso # Absolute Nucleated RBC Nucleated RBC % Sodium Potassium Chloride Carbon Dioxide Anion Gap BUN Creatinine Estimated GFR (MDRD) Glucose Calcium Total Bilirubin AST ALT Alkaline Phosphatase Troponin I B-Natriuretic Peptide 257 H Total Protein Albumin Globulin Albumin/Globulin Ratio Lipase PD MEDICAL DECISION MAKING - ED course Complexity details: reviewed old records, reviewed results, re-evaluated patient , considered differential, d/w patient, d/w family ED course: Patient was seen and examined at bedside. ekg was performed and showed paced rhythm. IV access was gained and labs were drawn. Patient was treated with duonebs. chest x-ray was performed and showed questionable atelecatasis but looked unchanged from previous x-ray. Patient did have a mild leukocytosis and was started on antibiotics. patient was offered admission but stated that he would rather go home. Daughter was called and given detailed discharge instructions. patient required no further work up and was stable for discharge with outpatient follow up. Departure - Departure Disposition: 01 Home, Self Care Clinical Impression: COPD (chronic obstructive pulmonary disease) Condition: Good Instructions: COPD Dc Follow-Up: Nicky Zuniga ARNP [Primary Care Provider] - Tomorrow Prescriptions: Levofloxacin [Levaquin] 750 mg PO DAILY #4 tablet Comments: Your diagnostics today showed a questionable pneumonia so you were started on antibiotics. You will take one a day for the next 4 days. You should follow up with your doctor this week. You should return to the emergency department if your symptoms worsen.
[2017-06-04] MEDS ORDERED: levoFLOXacin 250 MG TABLET PO STA (03:33)
[2017-06-04 04:55] VITALS: BP 139/50
== END 2017-06-04 04:30 | disposition home or self-care (01) ==
LOC: ED 00:34
DX: J44.9 Chronic obstructive pulmonary disease, unspecified (principal); D72.829 Elevated white blood cell count, unspecified; I10 Essential (primary) hypertension; I25.10 Atherosclerotic heart disease of native coronary artery without angina pectoris; I25.2 Old myocardial infarction; Z95.1 Presence of aortocoronary bypass graft; Z95.0 Presence of cardiac pacemaker; E11.9 Type 2 diabetes mellitus without complications; Z79.02 Long term (current) use of antithrombotics/antiplatelets; Z79.82 Long term (current) use of aspirin
CPT/HCPCS: 36415; 71046; 80053; 83690; 83880; 84484; 85025; 93005; 94640; 99283; 99284; A9270; J7620

== ENCOUNTER 2017-06-11 20:09 | Outpatient (CLI) | payer MEDICARE, OTHER ==
--- NOTE | 2017-06-11 20:20 | CONSULTATION NOTE ---
Palliative Care Follow Up - Referral Referring Provider: STEFANIE Santiago Time of Visit: 06/11/2017. 12:50 -13:30 Referral setting: Home (Seen in home setting due to taxing and considerable effort required to leave the home due to breathlessness secondary to severe end- stage COPD.) Referral Reason: Anxiety, SOB - Information Sources Records reviewed: Previous records reviewed History/Review of Systems obtained from: Patient, Family Exam limitations: No limitations, Clinical condition (Significantly MINTO) - History of Present Illness Update Brief HPI Update: This is a sadaf 87-year-old gentleman with severe end-stage COPD, with a rolling productive cough long-standing at his baseline, and rhonchi throughout. He also has multiple comorbidities including diastolic heart failure, atrial fibrillation, pacemaker, DM 2, CKD, and angina which has improved. When asked how he was doing, he responded "terrible," but after my assessment, he appears to actually be fairly stable and doing relativelyl well. He is not using oxygen during the visit, and the first thing he did say to me was that his daughter refuses to understand that the "machine" (oxygen concentrator) is not working because there is not enough oxygen in the room for it. He was quite insistent on this point, using proof that when he took an ambulance ride, [address] he could breathe better because there was enough oxygen. I finally suggested that he could open the sliding glass doors and get more fresh air into the room and that might help. he says he doesn't wear his oxygen most of the time, but does wear it at night. He brought out his personal pulse oximeter and measured his oxygen saturation during this visit. He has no complaints of angina, no complaints of shortness of breath at this present time, reporting that he is breathing at his normal level for him. it was unclear if he is still using his respiratory medications; they were not included on the hand-written list of medications his daughter Carie left for me to review at the visit. She was at work. He does call 911 often, and last week called for chest pain and cough. He was treated with duonebs in the ED. CXR showed questionable atelecatasis but was unchanged from previous x-ray. He was started on antibiotics for questionable pneumonia and sent home. Social History - Living Situation Living arrangement: At home Living Situation: With family (daughter and her ) Support System: He has lived with his daughter for many years, in a basement apartment. There appears to be conflict between the patient and his son-in-law. 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 He reports getting a $200k settlement from the [employer]. He came from a family of 6 boys; two of his five brothers are still living. Medications/Allergies - Medications Home Medications: Ambulatory Orders Medication Instructions Recorded Confirmed Albuterol [Ventolin Hfa] 2 puffs INH Q4H PRN 08/14/12 12/17/16 Aspirin [Aspir 81] 81 mg PO DAILY 08/14/12 06/11/17 Clopidogrel [Plavix] 75 mg PO DAILY 08/14/12 06/11/17 Isosorbide Mononitrate [Imdur] 60 mg PO BID 08/14/12 06/11/17 Metoprolol Tartrate 50 mg PO BID 08/14/12 06/11/17 Nitroglycerin [Nitrostat] 0.4 mg SL Q5MIN PRN 08/14/12 06/11/17 Cholecalciferol (Vitamin D3) 2,000 units PO DAILY 01/18/16 06/11/17 [Vitamin D3] Pantoprazole [Protonix] 40 mg PO DAILY 01/18/16 06/11/17 amLODIPine [Norvasc] 2.5 mg PO DAILY 01/18/16 06/11/17 Furosemide 20 mg PO .DAILY OR BID 02/17/16 06/11/17 Tiotropium [place] [Spiriva] 1 inh IH DAILY 02/17/16 12/17/16 Beta Carotene 25,000 units PO DAILY 11/18/16 12/17/16 Budesonide 1 neb INH BID 11/18/16 12/17/16 Gentle Iron 28 mg PO DAILY 11/18/16 12/17/16 Ipratropium/Albuterol [Duoneb] 1 neb INH Q4HR PRN 11/18/16 12/17/16 Prosta [employer] 1 - 2 cap PO DAILY 11/18/16 12/17/16 LORazepam [Lorazepam Intensol] 0.25 mg SL Q6HR PRN 11/28/16 06/11/17 Morphine Sulfate [Morphine Sulf 5 mg SL Q4HR PRN 11/28/16 06/11/17 Oral (Roxanol)] Ascorbic Acid [Vitamin C] 500 mg PO DAILY 06/11/17 06/11/17 Cinnamon Bark [Cinnamon] 850 mg PO TID 06/11/17 06/11/17 Losartan Potassium 1 tab PO DAILY 06/11/17 06/11/17 Zinc 50 mg PO DAILY 06/11/17 06/11/17 diphenhydrAMINE [Benadryl] 25 mg PO DAILY PRN 06/11/17 06/11/17 - Allergies Allergies/Adverse Reactions: Allergies Allergy/AdvReac Type Severity Reaction Status Date / Time acetaminophen Allergy Severe Itching Verified 01/06/17 06:13 atorvastatin calcium * Allergy Severe Itching Verified 01/06/17 06:13 [From Lipitor] cephalexin Allergy Severe Itching Verified 01/06/17 06:13 erythromycin base Allergy Severe Edema Verified 01/06/17 06:13 [Erythromycin Base] corn starch AdvReac Severe Itching Uncoded 01/06/17 06:13 Review of Systems - Constitutional Constitutional: reports: Weakness, Other (Frail and malnourished appearing. R bicep circumference is 24.5 cm.) - Ears, Nose & Throat Ears, Nose & Throat: reports: Hearing loss, Hearing aids - Cardiovascular Cardiovascular: denies: Chest pain - Respiratory Respiratory: reports: Cough (at baseline), Sputum production (at baseline), SOB with exertion. denies: SOB at rest - Gastrointestinal Gastrointestinal: denies: Constipation - Musculoskeletal Musculoskeletal: reports: Stiffness, Limited range of motion, Muscle weakness, Assistive devices (uses walker, but ambulated without it during my assessment). denies: Transfer issues - Integumentary Integumentary: reports: Dryness - Neurological Neurological: reports: General weakness, Memory problems (short term memory deficits) - Psychiatric Psychiatric: reports: Anxiety (upset that daughter has visited her grandchild three times in [place]; upset that the family has not visited him and he has never received a card from his granddaughter) - Endocrine Endocrine: reports: Intolerance to cold Physical Exam - Vital Signs Temperature: 97.7 F Pulse Rate: 62 O2 Saturation: 96 (on room air) Blood Pressure: 120/52 - Physical Exam General Appearance: positive: No acute distress, Alert Eyes Bilateral: positive: EOMI, No lid inflammation, Conjunctivae nml, No scleral icterus ENT: positive: No signs of dehydration Neck: positive: No JVD, Trachea midline Cardiovascular: positive: Irregular Respiratory: positive: Rhonchi (throughout; at baseline; rolling cough) Skin: positive: Pallor, Dryness (scaly) Extremities: positive: No pedal edema Neurologic/Psychiatric: positive: Oriented x3, Mood/affect nml Palliative Care - POLST Patient has POLST: Yes POLST Status: DNR, Comfort Measures Pain: No pain Feelings of wellbeing/Perceived Quality of Life: Poor Performance Status: He thinks he is generally "doing a bit better now." I asked him whether he would like a volunteer to come and visit, because he admits he is lonely. He wants me to continue to visit him, "I like talking to you, you're easy to talk to." I agreed that I could visit him. Impression and Recommendations - Palliative Care Impression: This is an 87-year-old gentleman with ends-stage COPD and CAD. His angina and SOB appear stable and at baseline, and he presents as lonely and isolated, at least during the day while his daughter is at work. He verbalizes that he would like future visits from Palliative Care. Recommendations/Counseling Done: Angina: Currently well-controlled with no complaints. Continue isosorbide mononitrate, and nitroglycerin as needed. SOB secondary to advanced COPD: O2 as needed, he uses it mainly at night. Patient was not able to answer whether he continues to take respiratory medications: ipratropium/albuterol/Duonebs nebulizer, albuterol/Ventolin HFA, tiotropium/Spiriva, budesonide. Confirm with daughter Carie. Anxiety: Appears at baseline and controlled. Continue lorazepam as needed. Advanced care planning: POLST in place, DNR and comfort care. Patient expresses that he would like to continue to have visits from the palliative care nurse practitioner. He would benefit from regular palliative care oversight and monitoring, with transition to hospice when criteria are met. Follow up in 4-6 weeks. Contact daughter to set up visit. Time Spent: 40 minutes were spent with more than 50% of the time spent on counseling, education, and coordination of care.
== END 2017-06-11 20:10 | disposition home or self-care (01) ==
LOC: PC 20:09
PROVIDERS: ATTEND Nurse Practitioner
DX: Z51.5 Encounter for palliative care (principal); I25.119 Atherosclerotic heart disease of native coronary artery with unspecified angina pectoris; J44.9 Chronic obstructive pulmonary disease, unspecified; F41.9 Anxiety disorder, unspecified; I50.30 Unspecified diastolic (congestive) heart failure; I48.91 Unspecified atrial fibrillation; E11.22 Type 2 diabetes mellitus with diabetic chronic kidney disease; H91.90 Unspecified hearing loss, unspecified ear; M62.81 Muscle weakness (generalized); Z79.891 Long term (current) use of opiate analgesic; Z79.82 Long term (current) use of aspirin; Z66 Do not resuscitate
CPT/HCPCS: 99349

== ENCOUNTER 2017-07-18 09:34 | Outpatient (CLI) | payer MEDICARE, OTHER | END 2017-07-18 09:35 | disposition critical access hospital (66) | LOC: EMS 09:34 | PROVIDERS: ATTEND Surgery | DX: K59.00 Constipation, unspecified (principal) | CPT/HCPCS: A0425; A0429 ==

== ENCOUNTER 2017-07-18 10:44 | Emergency (ER) | payer MEDICARE, OTHER ==
--- NOTE | 2017-07-18 13:47 | ED Physician Documentation ---
History of Present Illness - Stated complaint Stated Complaint: CONSTIPATION - Chief complaint Chief Complaint: Abd Pain - History obtained from History obtained from: Patient - History of Present Illness Timing: How many days ago (2) - Additonal information Additional information: 87 y/o male has been constipated and he has not had anything out in 2 days. He has taken some laxative and he has not had results. He feels full but does not have significant pain. Review of Systems Constitutional: denies: Fever Eyes: denies: Decreased vision Nose: denies: Congestion Throat: denies: Sore throat Cardiac: denies: Chest pain / pressure Respiratory: denies: Dyspnea, Cough GI: reports: Constipation. denies: Abdominal Pain, Nausea, Vomiting : denies: Dysuria, Frequency Skin: denies: Rash PD PAST MEDICAL HISTORY - Past Medical History Cardiovascular: Hypertension, High cholesterol, Coronary artery disease, Angina , [place], Other Respiratory: COPD, Shortness of breath Neuro: TIA, Tremors Endocrine/Autoimmune: Type 2 diabetes GI: GERD, Ulcers : Renal insuffiency HEENT: Chronic vision loss, Chronic hearing loss Psych: Depression, Anxiety, Panic attacks Musculoskeletal: Osteoarthritis, Fatigue Derm: None - Past Surgical History Past Surgical History: Yes General: Colonoscopy Ortho: Arthroscopic surgery Cardiovascular: CABG, Pacemaker HEENT: Cataracts - Present Medications Home Medications: Ambulatory Orders Medication Instructions Recorded Confirmed Albuterol [Ventolin Hfa] 2 puffs INH Q4H PRN 08/14/12 12/17/16 Aspirin [Aspir 81] 81 mg PO DAILY 08/14/12 06/11/17 Clopidogrel [Plavix] 75 mg PO DAILY 08/14/12 06/11/17 Isosorbide Mononitrate [Imdur] 60 mg PO BID 08/14/12 06/11/17 Metoprolol Tartrate 50 mg PO BID 08/14/12 06/11/17 Nitroglycerin [Nitrostat] 0.4 mg SL Q5MIN PRN 08/14/12 06/11/17 Cholecalciferol (Vitamin D3) 2,000 units PO DAILY 01/18/16 06/11/17 [Vitamin D3] Pantoprazole [Protonix] 40 mg PO DAILY 01/18/16 06/11/17 amLODIPine [Norvasc] 2.5 mg PO DAILY 01/18/16 06/11/17 Furosemide 20 mg PO .DAILY OR BID 02/17/16 06/11/17 Tiotropium [place] [Spiriva] 1 inh IH DAILY 02/17/16 12/17/16 Beta Carotene 25,000 units PO DAILY 11/18/16 12/17/16 Budesonide 1 neb INH BID 11/18/16 12/17/16 Gentle Iron 28 mg PO DAILY 11/18/16 12/17/16 Ipratropium/Albuterol [Duoneb] 1 neb INH Q4HR PRN 11/18/16 12/17/16 Prosta [place] 1 - 2 cap PO DAILY 11/18/16 12/17/16 LORazepam [Lorazepam Intensol] 0.25 mg SL Q6HR PRN 11/28/16 06/11/17 Morphine Sulfate [Morphine Sulf 5 mg SL Q4HR PRN 11/28/16 06/11/17 Oral (Roxanol)] Ascorbic Acid [Vitamin C] 500 mg PO DAILY 06/11/17 06/11/17 Cinnamon Bark [Cinnamon] 850 mg PO TID 06/11/17 06/11/17 Losartan Potassium 1 tab PO DAILY 06/11/17 06/11/17 Zinc 50 mg PO DAILY 06/11/17 06/11/17 diphenhydrAMINE [Benadryl] 25 mg PO DAILY PRN 06/11/17 06/11/17 - Allergies Allergies/Adverse Reactions: Allergies Allergy/AdvReac Type Severity Reaction Status Date / Time acetaminophen Allergy Severe Itching Verified 01/06/17 06:13 atorvastatin calcium * Allergy Severe Itching Verified 01/06/17 06:13 [From Lipitor] cephalexin Allergy Severe Itching Verified 01/06/17 06:13 erythromycin base Allergy Severe Edema Verified 01/06/17 06:13 [Erythromycin Base] corn starch AdvReac Severe Itching Uncoded 01/06/17 06:13 - Social History Does the pt smoke?: No Smoking Status: Never smoker Does the pt drink ETOH?: No Does the pt have substance abuse?: No - Immunizations Immunizations are current?: Yes - POLST Patient has POLST: Yes PD ED PE NORMAL - Vitals Vital signs reviewed: Yes (hypertensive) - General General: No acute distress, Well developed/nourished - HEENT HEENT: Atraumatic - Neck Neck: Supple, no meningeal sign - Cardiac Cardiac: RRR, No murmur - Respiratory Respiratory: No respiratory distress - Abdomen Abdomen: Normal bowel sounds, Soft, Non tender, No organomegaly - Back Back: No CVA TTP, No spinal TTP - Derm Derm: Normal color, Warm and dry, No rash - Extremities Extremities: No deformity, No edema - Neuro Neuro: No motor deficit, No sensory deficit Eye Opening: Spontaneous Motor: Obeys Commands Verbal: Oriented GCS Score: 15 - Psych Psych: Normal mood, Normal affect Results - Vitals Vitals: Vital Signs - 24 hr 07/18/17 07/18/17 10:46 15:17 Temperature 37.0 C 36.6 C Heart Rate 71 75 Respiratory 17 16 Rate Blood Pressure 169/80 H 131/89 H O2 Saturation 94 100 Oxygen O2 Source Room air PD MEDICAL DECISION MAKING - ED course Complexity details: reviewed old records, reviewed results, re-evaluated patient , considered differential, d/w patient ED course: 87-year-old male with a history of constipation not relieved by laxative as it usually has been is given an enema with little results the first time and good results the second time. He did have some disimpaction done by the RN as well. Departure - Departure Disposition: 01 Home, Self Care Clinical Impression: Constipation Qualifiers: Constipation type: unspecified constipation type Qualified Code(s): K59.00 - Constipation, unspecified Instructions: ED Constipation Follow-Up: Nicky Zuniga ARNP [Primary Care Provider] - Discharge Date/Time: 07/18/17 15:32
[2017-07-18 15:18] VITALS: BP 131/89
== END 2017-07-18 15:32 | disposition home or self-care (01) ==
LOC: EDUNIT# → ED 10:44
DX: K59.00 Constipation, unspecified (principal); I10 Essential (primary) hypertension; J44.9 Chronic obstructive pulmonary disease, unspecified; I25.10 Atherosclerotic heart disease of native coronary artery without angina pectoris; Z95.1 Presence of aortocoronary bypass graft; Z95.0 Presence of cardiac pacemaker; E78.00 Pure hypercholesterolemia, unspecified; Z79.02 Long term (current) use of antithrombotics/antiplatelets; Z79.82 Long term (current) use of aspirin
CPT/HCPCS: 99283; 99284

== ENCOUNTER 2017-08-07 12:40 | Outpatient (CLI) | payer MEDICARE, OTHER ==
--- NOTE | 2017-08-07 20:04 | CONSULTATION NOTE ---
Palliative Care Follow Up - Referral Referring Provider: STEFANIE Ramos Time of Visit: 08/07/2017. 12:40 - 13:25 Referral setting: Home (Seen in home setting due to taxing and considerable effort required to leave the home due to breathlessness secondary to severe end- stage COPD.) Referral Reason: Constipation - Information Sources Records reviewed: Previous records reviewed History/Review of Systems obtained from: Patient, Family Exam limitations: Clinical condition (Significantly [place]) - History of Present Illness Update Brief HPI Update: -87-year-old gentleman with severe end-stage COPD with a long-standing, rolling , productive cough at his baseline with, with rhonchi throughout. -Medical history: Multiple comorbidities including diastolic heart failure, atrial fibrillation, pacemaker, DM 2, CKD, angina. -He frequently calls 911, despite his daughter trying to educate him not to. Except for emergencies. He is well-known to [facility] and the EMS team. -Most recent 911 call was 07/18/17 for constipation. He was given 2 enemas and disimpaction by RN. -Today he complains that it is "still not going well." He describes hemorrhoid symptoms. -Recommended he contact PCP for in office procedure for external hemorrhoids. -He also complains of constipation, with hard stools -Spoke with daughter, Carie Conrad, who will follow up with PCP about the external hemorrhoids. -Complains of itchy skin and, "growths" on his back. -His back is relatively clear, with one small seborrheic keratosis lesion nearR scapula. -He does have dry skin, and I recommended he use a moisturizing cream. -He already has a cream recommended by his PCP which he has difficulty applying. -Patient's previous baseline weight as a younger adult was around 185 lbs. He reports being 150 lbs. about 3-6 months ago -He weights 143.2 lbs on his home scale today. -He self transfer, gait is slow, with short steps. He doesn't use a walker around the house. -He remains alone during the day in his apartment, which is the bottom floor of the house he shares with his daughter and son-in-law. -He is not using his oxygen today during the visit. He doesn't use his O2 consistently during the day, but wears it consistently at night. Social History - Living Situation Living arrangement: At home Living Situation: Alone, With family Support System: He lives in a large apartment on the lower floor of a house he shares with his daughter and son in law. He has been about 14 years. 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 He received a settlement of about $250k from the [employer]. Medications/Allergies - Medications Home Medications: Ambulatory Orders Medication Instructions Recorded Confirmed Albuterol [Ventolin Hfa] 2 puffs INH Q4H PRN 08/14/12 08/07/17 Aspirin [Aspir 81] 81 mg PO DAILY 08/14/12 08/07/17 Clopidogrel [Plavix] 75 mg PO DAILY 08/14/12 08/07/17 Isosorbide Mononitrate [Imdur] 60 mg PO BID 08/14/12 08/07/17 Metoprolol Tartrate 50 mg PO BID 08/14/12 08/07/17 Nitroglycerin [Nitrostat] 0.4 mg SL Q5MIN PRN 08/14/12 08/07/17 Cholecalciferol (Vitamin D3) 2,000 units PO DAILY 01/18/16 08/07/17 [Vitamin D3] Pantoprazole [Protonix] 40 mg PO DAILY 01/18/16 08/07/17 amLODIPine [Norvasc] 2.5 mg PO DAILY 01/18/16 08/07/17 Furosemide 20 mg PO .DAILY OR BID 02/17/16 08/07/17 Tiotropium [place] [Spiriva] 1 inh IH DAILY 02/17/16 08/07/17 Beta Carotene 25,000 units PO DAILY 11/18/16 08/07/17 Budesonide 1 neb INH BID 11/18/16 08/07/17 Gentle Iron 28 mg PO DAILY 11/18/16 08/07/17 Ipratropium/Albuterol [Duoneb] 1 neb INH Q4HR PRN 11/18/16 08/07/17 LORazepam [Lorazepam Intensol] 0.25 mg SL Q6HR PRN 11/28/16 08/07/17 Ascorbic Acid [Vitamin C] 500 mg PO DAILY 06/11/17 08/07/17 Cinnamon Bark [Cinnamon] 850 mg PO TID 06/11/17 08/07/17 Losartan Potassium 1 tab PO DAILY 06/11/17 08/07/17 diphenhydrAMINE [Benadryl] 25 mg PO DAILY PRN 06/11/17 08/07/17 Fluticasone 110 Mcg [Flovent] 55 mcg INH BID 08/07/17 08/07/17 - Allergies Allergies/Adverse Reactions: Allergies Allergy/AdvReac Type Severity Reaction Status Date / Time acetaminophen Allergy Severe Itching Verified 01/06/17 06:13 atorvastatin calcium * Allergy Severe Itching Verified 01/06/17 06:13 [From Lipitor] cephalexin Allergy Severe Itching Verified 01/06/17 06:13 erythromycin base Allergy Severe Edema Verified 01/06/17 06:13 [Erythromycin Base] corn starch AdvReac Severe Itching Uncoded 01/06/17 06:13 Review of Systems - Constitutional Constitutional: reports: Weakness, Weight loss (143.2 lbs 08/07/17. Patient reports previous weight of 150 lbs 3-6 months ago. He used to have baseline weight of 185 lbs. R bicep circumference is 24cm; previously it was 24.5 cm.), Other (He's starting to eat better per his report. Daughter says she encourages him to eat more fiber to alleviate constipation.) - Eyes Eyes: reports: Corrective lenses - Ears, Nose & Throat Ears, Nose & Throat: reports: Hearing loss, Hearing aids - Cardiovascular Cardiovascular: reports: Exertional dyspnea, Decr. exercise tolerance. denies: Chest pain, Edema - Respiratory Respiratory: reports: Cough (at baseline), Sputum production (at baseline), Other (Often does not wear O2 during the day. Always wears it at night) - Gastrointestinal Gastrointestinal: reports: Constipation (recent call to 911 for constipation), Other (hemorrhoids) - Genitourinary Genitourinary: denies: Incontinence - Musculoskeletal Musculoskeletal: reports: Stiffness, Limited range of motion. denies: Transfer issues - Integumentary Integumentary: reports: Pruritis, Lesions (one small keratosis on R scapula), Dryness - Neurological Neurological: reports: Abnormal gait (stiff, slow) - Psychiatric Psychiatric: reports: Anxiety (complains about son in law; resents any suggestions that he leave this house.) Physical Exam - Vital Signs Temperature: 96.4 F Pulse Rate: 57 O2 Saturation: 95 (room air) Blood Pressure: 140/58 - Physical Exam General Appearance: positive: No acute distress, Alert Eyes Bilateral: positive: EOMI, No lid inflammation, Conjunctivae nml, No scleral icterus ENT: positive: No signs of dehydration Neck: positive: No JVD, Trachea midline Cardiovascular: positive: Regular rate & rhythm, No murmur, No gallop, Other ( pacemaker) Respiratory: positive: No respiratory distress, Diminished throughout (severe), Rhonchi Skin: positive: Dryness Extremities: positive: No pedal edema Neurologic/Psychiatric: positive: Oriented x3, Mood/affect nml Palliative Care - POLST POLST Status: DNR, Comfort Measures Pain: No pain Drowsiness/Sedation: None Nausea: None Anxiety: Mild (1-3), Moderate (4-6) Anorexia: Mild (1-3) Sleep: Sleeps well Constipation: Yes - Palliative Care Discussion: Discussed with daughter, Carie Conrad, by telephone following this visit that her father has some unrealistic expectations. He wants her to stay home with him, and not work. He is not amenable to the idea of moving in to assisted living, or hiring a caregiver to help him during the days. He is isolated in his apartment, and this is quite likely why he frequently calls 911 -- from loneliness. Yet he is upset at the idea of moving from this apartment. He brought this subject up on his own, becoming agitated talking about the agreement that they would buy the house together and he and his wifecould live there the rest of his life. (Carie points out that his was in a facility at the end of life because her care needs increased.) He still feels resentment about his daughter putting him in respite care at [facility] so she could visit her grandchildren in [place]. He felt abandoned, even though he is unable to travel, which is something he recognizes. The daughter continues to talk with him about either hiring caregiving help, or moving to assisted living (he has the financial means) as his caregiving needs increase and it is no longer is feasible for him to stay solo in the apartment. She would like Palliative Care support around this. And the patient would also like Palliative Care to continue to visit. Patient says that six months ago he felt he had only a few weeks to live, but he has improved, and no longer thinks along those lines. He doesn't have a sense of what the future holds, but does have insight into the seriousness of his respiratory disease. He remains resistant to any change in his residential situation. Impression and Recommendations - Palliative Care Impression: This is an 87-year-old gentleman with severe end-stage COPD and CAD. He has lost weight but otherwise is relatively stable, but his respiratory disease is quite severe and he remains at risk for for precipitous events. Daughter recognizes his care needs are increasing and remaining alone is becoming unfeasible. Patient is quite resistant to hiring caregiver help or moving from the house to assisted living or another supported environment, and has unrealistic expectations that his daughter should remain home with him. Both daughter and patient request continued palliative care oversight and support. Recommendations/Counseling Done: Constipation: Add miralax 17g daily. Hemorrhoids: Recommend follow up with PCP for external hemorrhoid removal procedure; daughter will schedule an appointment. SOB secondary to advanced COPD: Stable. He is on O2, doesn't use it 24/7, but consistently uses it at night. We conducted medicine reconciliation and he confirmed using Duonebs nebulizer, albuterol/Ventolin HFA, tiotropium/Spiriva, budesonide. He reports not using the morphine solution or having it anymore. I removed it from his medication list. HTN: BP 140/58. Continue metoprolol, amlodpine, isosorbide mononitrate. Dry skin: Continue cream prescribed by PCP. Recomennd also adding moisturizing cream daily. Advanced care planning: DNR and comfort care. Patient uses 911 frequently, is very isolated. Moving to assisted living could be a beneficial arrangement for socialization as well as safety; patient is quite resistant to this idea currently. An alternative is hiring caregiver support, which he also resists. Daughter reports he has the financial means. Call daughter to arrange follow up visit in September. Time Spent: 45 minutes were spent with more than 50% of the time spent on counseling, education, and
== END 2017-08-07 12:41 | disposition home or self-care (01) ==
LOC: PC 12:40
PROVIDERS: ATTEND Nurse Practitioner
DX: Z51.5 Encounter for palliative care (principal); J44.9 Chronic obstructive pulmonary disease, unspecified; K59.00 Constipation, unspecified; K64.9 Unspecified hemorrhoids; E11.22 Type 2 diabetes mellitus with diabetic chronic kidney disease; I13.0 Hypertensive heart and chronic kidney disease with heart failure and stage 1 through stage 4 chronic kidney disease, or unspecified chronic kidney disease; N18.9 Chronic kidney disease, unspecified; I50.30 Unspecified diastolic (congestive) heart failure; I25.119 Atherosclerotic heart disease of native coronary artery with unspecified angina pectoris; L85.3 Xerosis cutis; R53.1 Weakness; R63.4 Abnormal weight loss; Z95.0 Presence of cardiac pacemaker; Z79.82 Long term (current) use of aspirin; Z79.02 Long term (current) use of antithrombotics/antiplatelets; Z79.51 Long term (current) use of inhaled steroids; Z79.899 Other long term (current) drug therapy; Z66 Do not resuscitate
CPT/HCPCS: 99349

== ENCOUNTER 2017-09-10 19:31 | Outpatient (CLI) | payer MEDICARE, OTHER ==
--- NOTE | 2017-09-10 19:41 | CONSULTATION NOTE ---
Palliative Care Follow Up - Referral Referring Provider: STEFANIE Santiago Time of Visit: 09/10/2017. 13:05 - 13:30 Referral setting: Home (Seen in home setting due to taxing and considerable effort required to leave the home due to breathlessness secondary to severe end- stage COPD.) Referral Reason: hemorrhoids - Information Sources Records reviewed: Previous records reviewed History/Review of Systems obtained from: Patient, Family Exam limitations: Clinical condition (Significantly hard of hearing) - History of Present Illness Update Brief HPI Update: -87-year-old gentleman with severe end-stage COPD with a long-standing, rolling , productive cough at his baseline with rhonchi throughout. -Medical history: Multiple comorbidities including diastolic heart failure, atrial fibrillation, pacemaker, DM 2, CKD, angina. -He frequently calls 911 although his daughter tries to convince him and educate him not to do this except for emergencies. -Our next meeting was scheduled for 2 months out however he has been complaining of the pain and discomfort of hemorrhoids and ask for an earlier visit. -He reports he was not able to have them have the PCP clinic "look at the hemorrhoids". -I assessed him and indeed he does have a hemorrhoid, he has no redness, swelling, lacerations in his anal area. -He has a single external hemorrhoid. -Recommendations: Preparation H cream, warm sitz baths, Miralax to keep stools soft, keep fiber in the diet. -Some providers perform an in-office procedure of "tying off" hemorrhoids. Social History - Living Situation Living arrangement: At home Living Situation: With family Support System: He lives in the basement level of the home he shares with his daughter and son- in-law. Medications/Allergies - Medications Home Medications: Ambulatory Orders Medication Instructions Recorded Confirmed Albuterol [Ventolin Hfa] 2 puffs INH Q4H PRN 08/14/12 08/07/17 Aspirin [Aspir 81] 81 mg PO DAILY 08/14/12 08/07/17 Clopidogrel [Plavix] 75 mg PO DAILY 08/14/12 08/07/17 Isosorbide Mononitrate [Imdur] 60 mg PO BID 08/14/12 08/07/17 Metoprolol Tartrate 50 mg PO BID 08/14/12 08/07/17 Nitroglycerin [Nitrostat] 0.4 mg SL Q5MIN PRN 08/14/12 08/07/17 Cholecalciferol (Vitamin D3) 2,000 units PO DAILY 01/18/16 08/07/17 [Vitamin D3] Pantoprazole [Protonix] 40 mg PO DAILY 01/18/16 08/07/17 amLODIPine [Norvasc] 2.5 mg PO DAILY 01/18/16 08/07/17 Furosemide 20 mg PO .DAILY OR BID 02/17/16 08/07/17 Tiotropium [place] [Spiriva] 1 inh IH DAILY 02/17/16 08/07/17 Beta Carotene 25,000 units PO DAILY 11/18/16 08/07/17 Budesonide 1 neb INH BID 11/18/16 08/07/17 Gentle Iron 28 mg PO DAILY 11/18/16 08/07/17 Ipratropium/Albuterol [Duoneb] 1 neb INH Q4HR PRN 11/18/16 08/07/17 LORazepam [Lorazepam Intensol] 0.25 mg SL Q6HR PRN 11/28/16 08/07/17 Ascorbic Acid [Vitamin C] 500 mg PO DAILY 06/11/17 08/07/17 Cinnamon Bark [Cinnamon] 850 mg PO TID 06/11/17 08/07/17 Losartan Potassium 1 tab PO DAILY 06/11/17 08/07/17 diphenhydrAMINE [Benadryl] 25 mg PO DAILY PRN 06/11/17 08/07/17 Fluticasone 110 Mcg [Flovent] 55 mcg INH BID 08/07/17 08/07/17 Polyethylene Glycol 3350 [Miralax] 17 gm PO DAILY 09/10/17 09/10/17 Preparation H Cream 1 ea TOP DAILY PRN 09/10/17 - Allergies Allergies/Adverse Reactions: Allergies Allergy/AdvReac Type Severity Reaction Status Date / Time acetaminophen Allergy Severe Itching Verified 01/06/17 06:13 atorvastatin calcium * Allergy Severe Itching Verified 01/06/17 06:13 [From Lipitor] cephalexin Allergy Severe Itching Verified 01/06/17 06:13 erythromycin base Allergy Severe Edema Verified 01/06/17 06:13 [Erythromycin Base] corn starch AdvReac Severe Itching Uncoded 01/06/17 06:13 Review of Systems - Constitutional Constitutional: reports: Weakness - Eyes Eyes: reports: Vision loss, Corrective lenses - Ears, Nose & Throat Ears, Nose & Throat: reports: Hearing loss, Hearing aids - Cardiovascular Cardiovascular: reports: Exertional dyspnea, Decr. exercise tolerance - Respiratory Respiratory: reports: SOB at rest, SOB with exertion - Gastrointestinal Gastrointestinal: reports: Other (itching, discomfort of hemorrhoids. Has not used his Prep H cream). denies: Constipation - Genitourinary Genitourinary: denies: Incontinence - Musculoskeletal Musculoskeletal: reports: Stiffness, Limited range of motion. denies: Transfer issues - Psychiatric Psychiatric: reports: Anxiety Physical Exam - Vital Signs Temperature: 96.8 F Pulse Rate: 70 O2 Saturation: 95 (room air) Blood Pressure: 155/65 - Physical Exam General Appearance: positive: No acute distress, Alert Eyes Bilateral: positive: No lid inflammation, Conjunctivae nml, No scleral icterus ENT: positive: No signs of dehydration Neck: positive: No JVD, Trachea midline Cardiovascular: positive: Regular rate & rhythm, No murmur, No gallop, Other ( pacemaker) Respiratory: positive: No respiratory distress, Diminished throughout (severe), Rhonchi, Other (Not wearing oxygen when I arrive, but did have it on previously. ) Skin: positive: Dryness, Other (No wounds, rash, redness in anal/arnol-area. Single distal, external hemorroid, no redness or irritation.) Neurologic/Psychiatric: positive: Oriented x3, Mood/affect nml Palliative Care - POLST Patient has POLST: Yes POLST Status: DNR, Comfort Measures - Palliative Care Discussion: Previously discussed with daughter, Carie, about hiring caregivers for him. His care needs are increasing past the point where she can handle it all. She reports he is financially able to afford it. He and I discussed getting him caregiver help, and I strongly recommended that he needs this extra support. He is very isolated, and is home alone all day long. He voiced agreement to this recommendation. [place] Carie already has the list. Also the visual coordinator has been working on finding a suitable volunteer to send to him. Impression and Recommendations - Palliative Care Impression: This is an 87-year-old gentleman with severe end-stage COPD and CAD, which is fairly stable currently. His complaint at this time is the discomfort of his hemorrhoids. I assessed and offered some advice for managing the symptoms. It is also possible but challenging to find a clinician who can actually do the in- office procedure to remove them. Today he appeared more open to hiring outside caregivers for added support, which is becoming necessary as his daughter is not able to provide the time and attention that he requires. Palliative care will continue to monitor and provide support, transitioning him to Hospice when appropriate. Recommendations/Counseling Done: Hemorrhoids: Miralax daily; titrate as needed. Fiber in the diet. Warm sitz baths. Preparation H ointment. Some clinicians do the in-clinic procedure to tie -off hemorrhoids, daughter will do some research. SOB secondary to advanced COPD: Stable, continue O2 by nasal cannula. Continue Duonnebs nebulizer, Ventolin, Spiriva, budesonide. HTN: BP 155/65. Continue metoprolol, amlodipine, isosorbide mononitrate. Nitroglyerin as needed for angina. Advanced care planning: Comfort care is the focus. Recommend hiring outside caregiving help, at least a few hours daily. Left agency list with patient. Follow up with daughter to set October visit. Time Spent: 25 minutes were spent with more than 50% of the time spent on counseling, education, and coordination of care.
== END 2017-09-10 19:32 | disposition home or self-care (01) ==
LOC: PC 19:31
PROVIDERS: ATTEND Nurse Practitioner
DX: Z51.5 Encounter for palliative care (principal); K64.4 Residual hemorrhoidal skin tags; J44.9 Chronic obstructive pulmonary disease, unspecified; I25.119 Atherosclerotic heart disease of native coronary artery with unspecified angina pectoris; I13.0 Hypertensive heart and chronic kidney disease with heart failure and stage 1 through stage 4 chronic kidney disease, or unspecified chronic kidney disease; E11.22 Type 2 diabetes mellitus with diabetic chronic kidney disease; N18.9 Chronic kidney disease, unspecified; I50.30 Unspecified diastolic (congestive) heart failure; I48.91 Unspecified atrial fibrillation; Z79.51 Long term (current) use of inhaled steroids; H54.7 Unspecified visual loss; Z66 Do not resuscitate; Z79.82 Long term (current) use of aspirin; Z79.02 Long term (current) use of antithrombotics/antiplatelets; Z95.0 Presence of cardiac pacemaker
CPT/HCPCS: 99348

== ENCOUNTER 2017-09-18 11:22 | Outpatient (CLI) | payer MEDICARE, OTHER | END 2017-09-18 11:23 | disposition home or self-care (01) | LOC: RT 11:22 | PROVIDERS: ATTEND Internal Medicine Cardiovascular Disease | DX: I25.10 Atherosclerotic heart disease of native coronary artery without angina pectoris (principal); I48.91 Unspecified atrial fibrillation | CPT/HCPCS: 93005 ==

== ENCOUNTER 2017-11-12 15:50 | Outpatient (CLI) | payer MEDICARE, OTHER ==
--- NOTE | 2017-11-12 17:53 | CONSULTATION NOTE ---
Palliative Care Follow Up - Referral Referring Provider: STEFANIE Santiago Time of Visit: 11/12/2017. 11:35-12:20 Referral setting: Home (Seen in home setting due to taxing and considerable effort required to leave the home due to breathlessness secondary to severe end- stage COPD.) Referral Reason: Advanced care planning - Information Sources Records reviewed: Previous records reviewed History/Review of Systems obtained from: Patient, Family Exam limitations: Clinical condition (significantly hard of hearing) - History of Present Illness Update Brief HPI Update: -87-year-old gentleman with severe end-stage COPD with a long-standing, rolling , productive cough at his baseline with rhonchi throughout. -Medical history: Multiple comorbidities including diastolic heart failure, atrial fibrillation, pacemaker, DM 2, CKD, angina. -He was at the [facility] assisted living earlier this week while his daughter , Carie, was out of town attending a family wedding. -He has no complaints of shortness of air today, he says his dyspnea is unchanged. -He reports left-side chest pain that comes and goes, "at the darndest times." The most recent episode was while he was at [facility], and he reports staff stayed with him until 4 AM. -He reports constipation "all the time." He reports that he is using Miralax daily, but that he doesn't drink many liquids. We discussed the link between constipation and hemorrhoids, which he also complains of, and particularly that his primary care physician "would not look" at his hemorrhoids or tie them off. 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 He currently weighs 140 pounds, whereas back in his 50s he weighed between 160-165, and at one point in life went up to the 180s, before dropping down to 140 pounds. Social History - Living Situation Living arrangement: At home Living Situation: With family Support System: He lives in the basement level of the home he shares with his daughter and her . He has a caregiver who comes twice a week. He says she is still "green" and will be getting additional training. "She is a good kid." He is ambulatory and fairly functional; having a caregiver there gives him company and relieves his daily isolation. Medications/Allergies - Medications Home Medications: Ambulatory Orders Medication Instructions Recorded Confirmed Albuterol [Ventolin Hfa] 2 puffs INH Q4H PRN 08/14/12 08/07/17 Aspirin [Aspir 81] 81 mg PO DAILY 08/14/12 08/07/17 Clopidogrel [Plavix] 75 mg PO DAILY 08/14/12 08/07/17 Isosorbide Mononitrate [Imdur] 60 mg PO BID 08/14/12 08/07/17 Metoprolol Tartrate 50 mg PO BID 08/14/12 08/07/17 Nitroglycerin [Nitrostat] 0.4 mg SL Q5MIN PRN 08/14/12 08/07/17 Cholecalciferol (Vitamin D3) 2,000 units PO DAILY 01/18/16 08/07/17 [Vitamin D3] Pantoprazole [Protonix] 40 mg PO DAILY 01/18/16 08/07/17 amLODIPine [Norvasc] 2.5 mg PO DAILY 01/18/16 08/07/17 Furosemide 20 mg PO .DAILY OR BID 02/17/16 08/07/17 Tiotropium [place] [Spiriva] 1 inh IH DAILY 02/17/16 08/07/17 Beta Carotene 25,000 units PO DAILY 11/18/16 08/07/17 Budesonide 1 neb INH BID 11/18/16 08/07/17 Gentle Iron 28 mg PO DAILY 11/18/16 08/07/17 Ipratropium/Albuterol [Duoneb] 1 neb INH Q4HR PRN 11/18/16 08/07/17 LORazepam [Lorazepam Intensol] 0.25 mg SL Q6HR PRN 11/28/16 08/07/17 Ascorbic Acid [Vitamin C] 500 mg PO DAILY 06/11/17 08/07/17 Cinnamon Bark [Cinnamon] 850 mg PO TID 06/11/17 08/07/17 Losartan Potassium 1 tab PO DAILY 06/11/17 08/07/17 diphenhydrAMINE [Benadryl] 25 mg PO DAILY PRN 06/11/17 08/07/17 Fluticasone 110 Mcg [Flovent] 55 mcg INH BID 08/07/17 08/07/17 Polyethylene Glycol 3350 [Miralax] 17 gm PO DAILY 09/10/17 09/10/17 Preparation H Cream 1 ea TOP DAILY PRN 09/10/17 - Allergies Allergies/Adverse Reactions: Allergies Allergy/AdvReac Type Severity Reaction Status Date / Time acetaminophen Allergy Severe Itching Verified 01/06/17 06:13 atorvastatin calcium * Allergy Severe Itching Verified 01/06/17 06:13 [From Lipitor] cephalexin Allergy Severe Itching Verified 01/06/17 06:13 erythromycin base Allergy Severe Edema Verified 01/06/17 06:13 [Erythromycin Base] corn starch AdvReac Severe Itching Uncoded 01/06/17 06:13 Review of Systems - Constitutional Constitutional: reports: Weight stable (140 lbs. In his 50s he weighed 160-165 lbs, then gained to the 180s before dropping to the 140s.). denies: Poor appetite - Ears, Nose & Throat Ears, Nose & Throat: reports: Hearing loss (significant), Hearing aids - Cardiovascular Cardiovascular: reports: Chest pain (episodic), Exertional dyspnea, Decr. exercise tolerance. denies: Irregular heart rate, Edema - Respiratory Respiratory: reports: Cough, SOB at rest, SOB with exertion - Gastrointestinal Gastrointestinal: reports: Constipation (reports using miralax daily, but doesn' t drink many fluids). denies: Poor appetite - Genitourinary Genitourinary: reports: Other (occasional difficulty with the flow.). denies: Incontinence - Musculoskeletal Musculoskeletal: reports: Stiffness, Limited range of motion, Assistive devices (walker, but able to walk independently in his house). denies: Transfer issues - Integumentary Integumentary: reports: Dryness - Neurological Neurological: reports: Memory problems, Abnormal gait (shuffles, stiffness) - Psychiatric Psychiatric: reports: Anxiety (hypochondria), Other (Anger, resentment when his daughter takes him to [facility] for respite when she travels. Freely admits he does not like his son in law.) Physical Exam - Vital Signs Temperature: 95.8 F Pulse Rate: 52 Blood Pressure: 120/68 - Physical Exam General Appearance: positive: No acute distress, Alert Eyes Bilateral: positive: EOMI, No lid inflammation, Conjunctivae nml, No scleral icterus ENT: positive: Dry mucous membranes Neck: positive: Trachea midline Cardiovascular: positive: Regular rate & rhythm, No murmur, No gallop Respiratory: positive: Chest non-tender, No respiratory distress, Diminished throughout, Rales (significant. baseline.), Other (able to clear lungs with cough) Abdomen: positive: Taut Skin: positive: Dryness Extremities: positive: No pedal edema Neurologic/Psychiatric: positive: Oriented x3, Mood/affect nml, Unintelligible speech (at times difficult to hear him due to SOA and the effort it takes for him to speak) Palliative Care - POLST Patient has POLST: Yes POLST Status: DNR, Comfort Measures Performance Status: Ambulatory, was able to walk throughout his house without nasal cannula. Continent. - Palliative Care Discussion: Patient expressed his resentment and dissatisfaction with having had to go to [facility] this past week while his daughter traveled to a family gathering. However, he is less vociferous about this than he has been in the past, and really only mentioned it in passing. We discussed future possibilities as his lung disease progresses, and that at some point it will be likely that he will need a different level of care than he currently has. He seemed to acknowledge that Carie his daughter cannot become his multimedia editor caregiver, and so we talked about doing some thinking about what he would want and not want in terms of a change in his living situation. Carie and I have discussed how he has been attached in the past to that home, and today he did say, "But this is MY place." We continued to explore this subject, and talked about a day when he would no longer be safe living solo in his apartment, but would need increased caregiving, whether with care givers coming there, or transferring to a facility that could provide appropriate support. He said that his son-in-law was researching 's facilities, and he could possibly be interested in that. He appears to be a little more amenable and less categorically against the thought of moving elsewhere, but he still maintains the hope that he will remain the rest of his life in this home. Carie says she has spoken to him about this from time to time, and my bringing it up during my visits seems to help him at least consider other alternatives, and start thinking along those lines. Impression and Recommendations - Palliative Care Impression: 87-year-old gentleman with severe end-stage COPD and CAD, currently stable. He has frequently called 911, often out of boredom or concern for minor concerns. The most recent one was back in August for hemorrhoids. He was recently at [facility] for respite while his daughter, who shares the house with him, was away at a family wedding. Both patient and daughter would benefit from the patient receiving continued palliative care oversight and support. Recommendations/Counseling Done: Constipation: Continue miralax daily, increase fluid intake. Counselled adding fiber to diet. Continue Prep H ointment when hemorrhoids flair, and sitz baths if possible. Chronic SOA secondary to advanced COPD: At baseline. Continue O2 by nasal cannula, Duonebs nebulizer, Ventolin Spiriva, budesonide. HTN: Stable, 120/68, continue beta clocker, calcium channel ghassan and isosorbide mononitrate. Angina: Episodic. Use nitroglycerin prn. Advanced care planning: POLST is DNR and comfort. He has caregiver help 2x/ week. Family is looking at possible alternate arrangements for the future: assisted living, exploring 's homes on the [facility]. Patient is presently resistant to moving from his home, but less vociferously than previously. Follow up with daughter for December visit. Time Spent: 45 minutes were spent with more than 50% of the time spent on counseling, education, and coordination of care.
== END 2017-11-12 15:51 | disposition home or self-care (01) ==
LOC: PC 15:50
PROVIDERS: ATTEND Nurse Practitioner
DX: Z51.5 Encounter for palliative care (principal); K59.00 Constipation, unspecified; J44.9 Chronic obstructive pulmonary disease, unspecified; I25.119 Atherosclerotic heart disease of native coronary artery with unspecified angina pectoris; E11.22 Type 2 diabetes mellitus with diabetic chronic kidney disease; N18.9 Chronic kidney disease, unspecified; I50.30 Unspecified diastolic (congestive) heart failure; Z95.0 Presence of cardiac pacemaker; R05 Cough; Z79.82 Long term (current) use of aspirin; Z79.02 Long term (current) use of antithrombotics/antiplatelets; F41.9 Anxiety disorder, unspecified; Z66 Do not resuscitate
CPT/HCPCS: 99349

== ENCOUNTER 2017-12-18 11:23 | Outpatient (CLI) | payer MEDICARE, OTHER | END 2017-12-18 11:24 | disposition home or self-care (01) | LOC: RT 11:23 | PROVIDERS: ATTEND Internal Medicine Cardiovascular Disease | DX: I25.10 Atherosclerotic heart disease of native coronary artery without angina pectoris (principal) | CPT/HCPCS: 93005 ==

== ENCOUNTER 2017-12-25 06:24 | Outpatient (CLI) | payer MEDICARE, OTHER | END 2017-12-25 06:25 | disposition critical access hospital (66) | LOC: EMS 06:24 | PROVIDERS: ATTEND Surgery | DX: R07.9 Chest pain, unspecified (principal) | CPT/HCPCS: A0425; A0427 ==

== ENCOUNTER 2017-12-25 07:01 | Inpatient (IN) | payer MEDICARE, OTHER ==
[2017-12-25 07:41] LABS: BASOPHILS % (AUTO) 0.3 %; EOSINOPHILS % (AUTO) 0.6 %; HGB - HEMOGLOBIN 11.4 g/dL (14.0-18.0); LYMPHOCYTES # (AUTO) 1.3 10^3/uL (1.5-3.5); LYMPHOCYTES % (AUTO) 21.5 %; MEAN CORPUSCULAR HEMOGLOBIN 33.5 pg (27.0-31.0); MEAN CORPUSCULAR HGB CONC 33.9 g/dL (32.0-36.0); MEAN CORPUSCULAR VOLUME 98.7 fL (80.0-94.0); MEAN PLATELET VOLUME 7.1 fL (7.4-11.4); MONOCYTES # (AUTO) 0.5 10^3/uL (0.0-1.0); MONOCYTES % (AUTO) 8.6 %; NEUTROPHILS # (AUTO) 4.1 10^3/uL (1.5-6.6); PLT - PLATELET COUNT 228 10^3/uL (130-450); RED BLOOD COUNT 3.42 10^6/uL (4.70-6.10); RED CELL DISTRIBUTION WIDTH 13.4 % (12.0-15.0); WHITE BLOOD COUNT 5.9 x10^3/uL (4.8-10.8)
--- NOTE | 2017-12-25 07:51 | ED Physician Documentation ---
History of Present Illness - Stated complaint Stated Complaint: CP - Chief complaint Chief Complaint: Cardiac - Additonal information Additional information: hx from pt and EMR 87 male 3 AM awakened by chest pain, aching, moderate, rad across chest no SOA no nausea no diaphoresis feels like prior CAD lasted several hr and was relieved when EMS gave him asa and nitro + cough - chronic no leg swelling per EMR POLSt states DNR but comfort vs limited not specified Pmhx HTN CAD CABG PPM rest angina CHF COPD GERD among others he is on asa plavix niitro sl isosorbide BB losartan amlodopine lasix he does not know if his cardiac dz is being managed medically only at this point 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 denies: Dyspnea GI: denies: Abdominal Pain, Nausea, Vomiting Neurologic: reports: Generalized weakness Endocrine: denies: Easy bruising / bleeding Immunocompromised: denies: Immunocompromised PD PAST MEDICAL HISTORY - Past Medical History Cardiovascular: Hypertension, High cholesterol, Coronary artery disease, Angina, [place], Other Respiratory: COPD, Shortness of breath Endocrine/Autoimmune: Type 2 diabetes GI: GERD, Ulcers : Renal insuffiency HEENT: Chronic vision loss, Chronic hearing loss Psych: Depression, Anxiety, Panic attacks Musculoskeletal: Osteoarthritis, Fatigue Derm: None - Past Surgical History Past Surgical History: Yes General: Colonoscopy Ortho: Arthroscopic surgery Cardiovascular: CABG, Pacemaker HEENT: Cataracts - Present Medications Home Medications: Ambulatory Orders Medication Instructions Recorded Confirmed Aspirin [Aspir 81] 81 mg PO DAILY 08/14/12 12/25/17 Clopidogrel [Plavix] 75 mg PO DAILY 08/14/12 12/25/17 Isosorbide Mononitrate [Imdur] 120 mg PO BID 08/14/12 12/25/17 Metoprolol Tartrate 50 mg PO BID 08/14/12 12/25/17 Nitroglycerin [Nitrostat] 0.4 mg SL Q5MIN PRN 08/14/12 12/25/17 Cholecalciferol (Vitamin D3) 2,000 units PO DAILY 01/18/16 12/25/17 [Vitamin D3] Pantoprazole [Protonix] 20 mg PO DAILY 01/18/16 12/25/17 amLODIPine [Norvasc] 5 mg PO DAILY 01/18/16 12/25/17 Furosemide 20 mg PO .DAILY OR BID 02/17/16 12/25/17 Gentle Iron 28 mg PO DAILY 11/18/16 12/25/17 Cinnamon Bark [Cinnamon] 500 mg PO TID 06/11/17 12/25/17 Losartan Potassium 25 mg PO DAILY 06/11/17 12/25/17 - Allergies Allergies/Adverse Reactions: Allergies Allergy/AdvReac Type Severity Reaction Status Date / Time acetaminophen Allergy Severe Itching Verified 01/06/17 06:13 atorvastatin calcium * Allergy Severe Itching Verified 01/06/17 06:13 [From Lipitor] cephalexin Allergy Severe Itching Verified 01/06/17 06:13 erythromycin base Allergy Severe Edema Verified 01/06/17 06:13 [Erythromycin Base] corn starch AdvReac Severe Itching Uncoded 01/06/17 06:13 - Social History Does the pt smoke?: No Smoking Status: Never smoker Does the pt drink ETOH?: No Does the pt have substance abuse?: No - Immunizations Immunizations are current?: Yes - POLST Patient has POLST: Yes PD ED PE NORMAL - Vitals Vital signs reviewed: Yes - General General: Alert and oriented X 3 - HEENT HEENT: PERRL - Neck Neck: Supple, no meningeal sign - Cardiac Cardiac: RRR - Respiratory Respiratory: Other (rales drake) - Abdomen Abdomen: Non tender - Derm Derm: Normal color - Extremities Extremities: No edema, No calf tenderness / cord - Neuro Neuro: Alert and oriented X 3 Results - Vitals Vitals: Vital Signs - 24 hr 12/25/17 12/25/17 12/25/17 07:07 07:29 09:00 Temperature 36.6 C Heart Rate 84 69 62 Respiratory 16 27 H 21 Rate Blood Pressure 145/58 H 133/56 H 158/57 H O2 Saturation 97 95 93 Oxygen O2 Source Room air - EKG (time done) 0706 Other comments: Other comments (paced, rate 67) - Labs Labs: Laboratory Tests 12/25/17 12/25/17 12/25/17 07:30 07:30 07:30 WBC 5.9 RBC 3.42 L Hgb 11.4 L Hct 33.7 L MCV 98.7 H MCH 33.5 H MCHC 33.9 RDW 13.4 Plt Count 228 MPV 7.1 L Neut # (Auto) 4.1 Lymph # (Auto) 1.3 L [place] # (Auto) 0.5 Eos # (Auto) 0.0 Baso # (Auto) 0.0 Absolute Nucleated RBC 0.00 Nucleated RBC % 0.0 Sodium 142 Potassium 4.1 Chloride 103 Carbon Dioxide 31 Anion Gap 8.0 BUN 44 H Creatinine 1.7 H Estimated GFR (MDRD) 38 L Glucose 142 H Calcium 9.2 Total Bilirubin 0.5 AST 15 ALT < 10 L Alkaline Phosphatase 76 Troponin I < 0.04 Total Protein 7.4 Albumin 4.0 Globulin 3.4 Albumin/Globulin Ratio 1.2 Lipase 18 L - Rads (name of study) CXR Radiology: See rad report (stable cardiomegaly and small effusions) PD MEDICAL DECISION MAKING - ED course ED course: hx CAD and sx c/w ACS - EKG paced first trop neg - merits serial CE RADHA spoke to hospitalist at 0910 - Sepsis Event Vital Signs: Vital Signs - 24 hr 12/25/17 12/25/17 12/25/17 07:07 07:29 09:00 Temperature 36.6 C Heart Rate 84 69 62 Respiratory 16 27 H 21 Rate Blood Pressure 145/58 H 133/56 H 158/57 H O2 Saturation 97 95 93 Oxygen O2 Source Room air Departure - Departure Disposition: ED Place in Observation Clinical Impression: Chest pain Qualifiers: Chest pain type: unspecified Qualified Code(s): R07.9 - Chest pain, unspecified Condition: Good Discharge Date/Time: 12/25/17 10:11
[2017-12-25 07:58] LABS: ALBUMIN/GLOBULIN RATIO 1.2 (1.0-2.2); ALKALINE PHOSPHATASE 76 IU/L (42-121); ALT ALANINE AMINOTRANSFERASE < 10 IU/L (10-60); AST ASPARTATE AMINOTRANSFERASE 15 IU/L (10-42); BILIRUBIN,TOTAL 0.5 mg/dL (0.2-1.0); BUN - BLOOD UREA NITROGEN 44 mg/dL (6-20); CALCIUM 9.2 mg/dL (8.5-10.3); CARBON DIOXIDE - CO2 31 mmol/L (21-32); CHLORIDE 103 mmol/L (101-111); CREATININE 1.7 mg/dL (0.6-1.2); GFR - MDRD 38 (>89); GLUCOSE 142 mg/dL (70-100); LIPASE 18 U/L (22-51); SODIUM 142 mmol/L (135-145); TOTAL PROTEIN 7.4 g/dL (6.7-8.2)
--- NOTE | 2017-12-25 08:01 | XRAY Report ---
Reason: cp Procedure Date: 12/25/2017 Accession Number: [id number] / [id number] Procedure: XR - Chest 1 View X-Ray CPT Code: 50156 FULL RESULT: EXAM: CHEST RADIOGRAPHY EXAM DATE: 12/25/2017 07:44 AM. CLINICAL HISTORY: Chest pain. COMPARISON: CHEST 2 VIEW 06/04/2017 2:07 AM. TECHNIQUE: 1 view. FINDINGS: Lungs/Pleura: No focal pulmonary consolidation. There is blunting of bilateral costophrenic sulci, suspicious for small bilateral pleural effusions. No pneumothorax. Mediastinum: There is stable mild enlargement of the cardiac silhouette. There is moderate atherosclerotic calcification of the aortic arch. There is a left subclavian implanted cardiac device with lead tips in unchanged position. Other: The patient is post median sternotomy with intact sternal cerclage wires. No acute osseous abnormality. IMPRESSION: 1. Stable mild cardiomegaly. 2. Small bilateral pleural effusions. 3. No focal pulmonary consolidation. RADIA
[2017-12-25] MEDS ORDERED: SODIUM CHLORIDE FLUSH 0.9% 10 ML SYRINGE IVP PRN (09:23)
--- NOTE | 2017-12-25 09:52 | HISTORY & PHYSICAL EXAMINATION ---
Chief Complaint - Chief Complaint Chief Complaint: chest pain History of Present Illness - Admitted From Admitted From:: ED - History Obtained From Records Reviewed: yes History obtained from: chart review, patient, POA Exam Limitations: [place] - History of Present Illness HPI Comment/Other: Julian Reddy is a 87-year old male with a past medical history of hypertension, hyperlipidemia, CAD, angina, VT, CABG (both in [place] and in [place]), pacemaker, CHF, COPD, oxygen dependent, shortness of breath, pneumonia, diabetes mellitus type 2-diet controlled, GERD, ulcers, hiatal hernia, renal insufficiency, chronic vision loss, chronic hearing loss, depression, anxiety, PTSD, osteoarthritis, fatigue, CVA-residual expressive aphasia and memory loss, hemorrhoids, and nocturia. The patient states that he awoke at 3AM and had right anterior chest pain that was not radiating and did not have any associated symptoms including dizziness, nausea, diaphoresis, or increased shortness of breath. Since the symptom did not go away, he called 911. 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 EMS brought him to the ED. Once in the ED the patient had a resolution of chest pain, but states that this continues to come and go. He states that he has had heart attacks in the past that had similar symptoms. Reports from EMS was that the patient had an improvement in his symptoms after getting the ASA and SL nitroglycerin. The patient's labs showed macrocytic anemia with an H/H of 11.4/33.7, an elevated MCV of 98.7, an elevated BUN of 44, an elevated creatinine of 1.7, a reduced GFR of 38, an elevated glucose of 142, a negative troponin of 0.04, with no other lab abnormalities. Vital signs were normal and the patient was afebrile. Upon exam the patient states that he is pain free since arriving in the ED, but is thankful for this stay. The patient denies headaches, rashes, sore throat, a worsening cough, increased shortness of breath, recent falls, dysuria, nausea, vomiting, or dizziness. The patient will be observed overnight for a cardiac work up. History - Past Medical History Cardiovascular: reports: Hypertension, High cholesterol, Coronary artery disease, Angina, VT, Other Respiratory: reports: COPD, Shortness of breath Neuro: reports: Dementia, CVA Endocrine/Autoimmune: reports: Type 2 diabetes GI: reports: GERD, Ulcers, Hiatal hernia : reports: Renal insuffiency, Nocturia HEENT: reports: Chronic vision loss, Chronic sinusitis, Chronic hearing loss Psych: reports: Depression, Anxiety, Panic attacks Musculoskeletal: reports: Osteoarthritis, Fatigue Derm: reports: None MRSA Hx?: No - Past Surgical History General: reports: Colonoscopy Ortho: reports: Arthroscopic surgery Cardiovascular: reports: CABG, Pacemaker HEENT: reports: Cataracts - Family & Social History Family History: Mother: , Father: , Sister: Alive and Well, , Brother: Alive and Well, Family History Comment/Other: The patient's mother had cancer, his father had a stroke. The patient was one of 15 children, and primary illnesses were lung cancer, stroke, and alcoholism. 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 He lost his in 2003 from a bone disorder. He has a son and a daughter. He currently lives with his daughter, Carie and his son-in-law, who is ill from cancer. The patient denies current tobacco, alcohol, or illicit drug use. He admit to smoking in his younger years, but is not sure from what ages. The patient has a current POLST on file and confirms that he wishes to be a DNR. He is currently under the care of Palliative care. - Substance History Use: Uses substance without health or social issues: NONE, Other (alcohol use in past;) Abuse: Recurrent use of substance despite neg consequences: NONE Dependence: Experiences withdrawal or developed tolerances: NONE - POLST Patient has POLST: Yes POLST Status: DNR Meds/Allgy - Home Medications Home Medications: Ambulatory Orders Medication Instructions Recorded Confirmed Aspirin [Aspir 81] 81 mg PO DAILY 08/14/12 12/25/17 Clopidogrel [Plavix] 75 mg PO DAILY 08/14/12 12/25/17 Isosorbide Mononitrate [Imdur] 120 mg PO BID 08/14/12 12/25/17 Metoprolol Tartrate 50 mg PO BID 08/14/12 12/25/17 Nitroglycerin [Nitrostat] 0.4 mg SL Q5MIN PRN 08/14/12 12/25/17 Cholecalciferol (Vitamin D3) 2,000 units PO DAILY 01/18/16 12/25/17 [Vitamin D3] Pantoprazole [Protonix] 20 mg PO DAILY 01/18/16 12/25/17 amLODIPine [Norvasc] 5 mg PO DAILY 01/18/16 12/25/17 Furosemide 20 mg PO .DAILY OR BID 02/17/16 12/25/17 Gentle Iron 28 mg PO DAILY 11/18/16 12/25/17 Cinnamon Bark [Cinnamon] 500 mg PO TID 06/11/17 12/25/17 Losartan Potassium 25 mg PO DAILY 06/11/17 12/25/17 - Allergies Allergies/Adverse Reactions: Allergies Allergy/AdvReac Type Severity Reaction Status Date / Time acetaminophen Allergy Severe Itching Verified 01/06/17 06:13 atorvastatin calcium * Allergy Severe Itching Verified 01/06/17 06:13 [From Lipitor] cephalexin Allergy Severe Itching Verified 01/06/17 06:13 erythromycin base Allergy Severe Edema Verified 01/06/17 06:13 [Erythromycin Base] corn starch AdvReac Severe Itching Uncoded 01/06/17 06:13 Review of Systems - Constitutional Constitutional: reports: Fatigue, Weakness - Eyes Eyes: reports: Vision loss, Corrective lenses - Ears, Nose & Throat Ears, Nose & Throat: reports: Hearing loss, Hearing aids, Postnasal drainage - Cardiovascular Cariovascular: reports: Chest pain, Lightheadedness, Decr. exercise tolerance - Respiratory Respiratory: reports: Cough, SOB with exertion, Pleuritic pain - Gastrointestinal Gastrointestinal: reports: Reflux/heartburn - Genitourinary Genitourinary: reports: Frequency, Incontinence, Nocturia - Musculoskeletal Musculoskeletal: reports: Back pain - Integumentary Integumentary: reports: Dryness - Neurological Neurological: reports: General weakness, Memory problems, Pre-existing deficit, Abnormal gait - Psychiatric Psychiatric: reports: Depression - All Other Systems All Other Systems: reports: Reviewed and negative Prior Level of Functionality: Independent with a walker, home oxygen, and has home care givers and Palliative care for support. Exam - Vital Signs Reviewed Vital Signs: Yes Vital Signs: Vital Signs x48h Temp Pulse Resp BP Pulse Ox 09/27/18 07:29 69 27 H 133/56 H 95 12/25/17 07:07 36.6 C 84 16 145/58 H 97 - Physical Exam General Appearance: positive: No acute distress, Alert Eyes Bilateral: positive: No lid inflammation ENT: positive: Pharynx nml, Dry mucous membranes Neck: positive: Thyroid nml, No JVD, Trachea midline, Stiff neck Respiratory: positive: Chest non-tender, Rhonchi Cardiovascular: positive: No gallop, Irregularly irregular, Systolic murmur Peripheral Pulses: positive: 2+ Abdomen: positive: Non-tender Back: positive: Nml inspection Skin: positive: No rash, Warm, Pallor Extremities: positive: Non-tender, Full ROM, Nml appearance, No pedal edema Neurologic/Psychiatric: positive: CN's nml (2-12), Motor nml, Sensation nml, Disoriented to place, Disoriented to time, Weakness, Depressed mood/affect Reflexes: Bicep (R): 3+, Bicep (L): 3+ Conclusion/Plan - Problem List (1) Chest pain Conclusion/Plan: The patient admits to right anterior chest pain that he describes as sharp and non-radiating. He denies associated symptoms such as nausea, diaphoresis, dizziness, headaches, increased shortness of breath or blurred vision. He is prescribed Imdur, which has been continued here. Plan: Monitor for recurrence, give NTG tabs, morphine, as needed. Qualifiers: Chest pain type: unspecified Qualified Code(s): R07.9 - Chest pain, unspecified (2) COPD (chronic obstructive pulmonary disease) Conclusion/Plan: The patient has long-standing lung disease and is prescribe home oxygen, that he wears usually at night. Plan: Continue respiratory care, and provide supplemental oxygen. (3) GERD (gastroesophageal reflux disease) Conclusion/Plan: The patient states that in addition to this, he has been told that he has a hiatal hernia. He is prescribed a PPI at home, that continues here. Plan: Continue protonix, and monitor for symptoms. (4) Chronic respiratory failure with hypoxia, on home oxygen therapy Conclusion/Plan: Palliative care confirms that the patient has the option of wearing continuous oxygen, but the patient chooses to use it for sleeping at night. He has been on oxygen since arriving on the nursing floor as he is having suspected cardiac chest pain. Plan: Continue supplemental oxygen and monitor vital signs. (5) Aspiration into airway Conclusion/Plan: Upon my exam during the patient's admission, he was in his bed side chair enjoying a meal. He had signs of aspiration, with coughing immediately after consuming liquids, and his lung exam in which coarse crackles were heard. On x- ray, he was also found to have pleural effusions, which may also account for this finding. Plan: I will order a swallow study for the AM, but for comfort, continue what oral intake that is most comforting to the patient. Qualifiers: Encounter type: initial encounter Qualified Code(s): T17.908A - Unspecified foreign body in respiratory tract, part unspecified causing other injury, initial encounter (6) Hx of CABG Conclusion/Plan: The patient states that he underwent a CABG both in [place] and in [place]. He has CAD and has also suffered from a recent CVA that has impaired his memory, judgment, and safety awareness. He has since been medically managed on an ARB, beta ghassan, diuretic and recently treated with Imdur. The patient continues to complain of chest pain that comes and goes. Plan: Continue home meds and treat acute chest pain. - Lab Results Lab results reviewed: Yes Fish Bones: 12/26/17 05:35 12/26/17 05:35 - Diagnostic Imaging Results Diagnostic Imaging Results: positive: Prelim report reviewed Core Measures - Anticipated LOS I expect patient to be DC'd or transferred within 96 hours.: Yes - DVT/VTE - Prophylaxis VTE/DVT Device ordered at admit?: Yes VTE/DVT Prophylaxis med ordered at admit?: Yes - Stroke - Rehab Assessment Rehab services assessment to be ordered?: No Not Ordered - Medical Reason: Contraindicated - AMI - Statin at Admit Aspirin Prescribed on Admit: Yes
[2017-12-25] MEDS ORDERED: diphenhydrAMINE 25 MG CAPSULE PO PRN (13:58)
[2017-12-25] MEDS ORDERED: FUROSEMIDE 20 MG TABLET PO SCH (14:00)
[2017-12-25] MEDS ORDERED: PANTOPRAZOLE 40 MG VIAL IVP SCH (14:01)
[2017-12-25] MEDS: METOPROLOL SUCCINATE 25 MG TABLET PO SCH (15:20)
[2017-12-25] MEDS: GI COCKTAIL 120 ML BOTTLE PO SCH ×2 (15:20→20:27)
[2017-12-25] MEDS: SODIUM CHLORIDE FLUSH 0.9% 10 ML SYRINGE IVP SCH (15:21)
[2017-12-25] MEDS: FUROSEMIDE 20 MG TABLET PO SCH (17:39)
[2017-12-25] MEDS ORDERED: BENZOCAINE/MENTHOL LOZENGE MM PRN (19:55)
[2017-12-25] MEDS: NITROGLYCERIN SL 0.4 MG TABLET SL PRN ×3 (20:14→20:24)
[2017-12-25] MEDS: ISOSORBIDE MONONITRATE ER 30 MG TABLET PO SCH (20:32)
[2017-12-25] MEDS ORDERED: GI COCKTAIL 120 ML BOTTLE PO PRN (22:00)
[2017-12-25] MEDS: MORPHINE 2 MG/ML CARPUJECT IVP PRN (22:32)
[2017-12-26] MEDS: SODIUM CHLORIDE FLUSH 0.9% 10 ML SYRINGE IVP SCH ×3 (00:31→18:07)
[2017-12-26 05:46] LABS: BASOPHILS % (AUTO) 0.2 %; EOSINOPHILS % (AUTO) 0.4 %; HGB - HEMOGLOBIN 10.6 g/dL (14.0-18.0); LYMPHOCYTES # (AUTO) 1.4 10^3/uL (1.5-3.5); LYMPHOCYTES % (AUTO) 18.4 %; MEAN CORPUSCULAR HEMOGLOBIN 34.5 pg (27.0-31.0); MEAN CORPUSCULAR HGB CONC 35.2 g/dL (32.0-36.0); MEAN PLATELET VOLUME 7.4 fL (7.4-11.4); MONOCYTES # (AUTO) 0.6 10^3/uL (0.0-1.0); MONOCYTES % (AUTO) 8.3 %; NEUTROPHILS # (AUTO) 5.4 10^3/uL (1.5-6.6); NEUTROPHILS % (AUTO) 72.7 %; PLT - PLATELET COUNT 226 10^3/uL (130-450); RED BLOOD COUNT 3.08 10^6/uL (4.70-6.10); RED CELL DISTRIBUTION WIDTH 13.8 % (12.0-15.0); WHITE BLOOD COUNT 7.4 x10^3/uL (4.8-10.8)
[2017-12-26] MEDS: FUROSEMIDE 20 MG TABLET PO SCH (05:53)
[2017-12-26 06:04] LABS: ALBUMIN 3.6 g/dL (3.2-5.5); ALBUMIN/GLOBULIN RATIO 1.1 (1.0-2.2); ALKALINE PHOSPHATASE 66 IU/L (42-121); ALT ALANINE AMINOTRANSFERASE < 10 IU/L (10-60); AST ASPARTATE AMINOTRANSFERASE 15 IU/L (10-42); BILIRUBIN,TOTAL 0.7 mg/dL (0.2-1.0); BUN - BLOOD UREA NITROGEN 35 mg/dL (6-20); CALCIUM 8.9 mg/dL (8.5-10.3); CARBON DIOXIDE - CO2 31 mmol/L (21-32); CHLORIDE 102 mmol/L (101-111); CHOL/HDL RATIO 4.8 (<5.0); CHOLESTEROL 169 mg/dL; CREATININE 1.6 mg/dL (0.6-1.2); GFR - MDRD 41 (>89); GLUCOSE 135 mg/dL (70-100); HDL CHOLESTEROL 35 mg/dL; LDL CHOLESTEROL,CALCULATED 107 mg/dL; LDL/HDL RATIO 3.1 (<3.6); SODIUM 139 mmol/L (135-145); TOTAL PROTEIN 6.8 g/dL (6.7-8.2); VLDL CHOLESTEROL 27 mg/dL
[2017-12-26 06:25] LABS: FOLATE 9.1 ng/mL (5.90 - >24.8)
[2017-12-26] MEDS: PANTOPRAZOLE 40 MG TABLET PO SCH (09:04)
[2017-12-26] MEDS: ISOSORBIDE MONONITRATE ER 30 MG TABLET PO SCH ×2 (09:04→20:58)
[2017-12-26] MEDS: CLOPIDOGREL 75 MG TABLET PO SCH (09:05)
[2017-12-26] MEDS: METOPROLOL SUCCINATE 25 MG TABLET PO SCH (09:05)
[2017-12-26] MEDS: ASPIRIN EC 325 MG TABLET PO SCH (09:05)
[2017-12-26] MEDS: POLYETHYLENE GLYCOL 3350 17 GM PACKET PO SCH (09:06)
--- NOTE | 2017-12-26 11:54 | PROVIDER PROGRESS NOTE ---
Subjective - Prog Note Date Prog Note Date: 12/26/17 Prog Note Time: 11:51 - Subjective Pt reports feeling: Improved, No change Subjective: Julian has no complaints and no longer has chest pain. He denies any new symptoms including headaches, productive cough, increased shortness of breath, nausea, vomiting, or dizziness. Current Medications - Current Medications Current Medications: Active Medications Aspirin (Ecotrin) 325 mg PO DAILY [facility] Last Admin: 12/26/17 09:05 Dose: 325 mg Clopidogrel Bisulfate (Plavix) 75 mg PO DAILY [facility] Last Admin: 12/26/17 09:05 Dose: 75 mg Diphenhydramine HCl (Benadryl) 25 mg PO Q4HR PRN PRN Reason: Allergy Symptoms Furosemide (Lasix) 20 mg PO DAILY [facility] Isosorbide Mononitrate (Imdur) 120 mg PO BID [facility] Last Admin: 12/26/17 09:04 Dose: 120 mg Metoprolol Succinate (Toprol Xl) 25 mg PO DAILY [facility] Last Admin: 12/26/17 09:05 Dose: 25 mg Morphine Sulfate (Morphine (Carpuject)) 2 mg IVP Q2HR PRN PRN Reason: PAIN Last Admin: 12/25/17 22:32 Dose: 2 mg Multi-Ingredient Mouthwash/Gargle () 30 ml PO Q6H PRN PRN Reason: Heartburn Multivitamins/Minerals (Theragran M) 1 tab PO DAILYWM [facility] Last Admin: 12/26/17 12:58 Dose: 1 tab Nitroglycerin (Nitrostat) 0.4 mg SL Q5MIN PRN PRN Reason: Chest Pain Last Admin: 12/25/17 20:19 Dose: 0.4 mg Pantoprazole Sodium (Protonix) 20 mg PO DAILY [facility] Last Admin: 12/26/17 09:04 Dose: 20 mg Polyethylene Glycol (Miralax) 17 gm PO DAILY [facility] Last Admin: 12/26/17 09:06 Dose: 17 gm Sodium Chloride (Normal Saline Flush 0.9%) 10 ml IVP PRN PRN PRN Reason: NEEDED PER PROVIDER ORDERS Last Admin: 12/25/17 15:21 Dose: 10 ml Sodium Chloride (Normal Saline Flush 0.9%) 10 ml IVP 0100,0900,1700 [facility] Last Admin: 12/26/17 09:06 Dose: 10 ml Throat Lozenges (Cepacol) 1 lozenge MM Q2HR PRN PRN Reason: Mouth Sore Pain Aspirin [Aspir 81] 81 mg PO DAILY 08/14/12 Clopidogrel [Plavix] 75 mg PO DAILY 08/14/12 Isosorbide Mononitrate [Imdur] 120 mg PO BID 08/14/12 Metoprolol Tartrate 50 mg PO BID 08/14/12 Nitroglycerin [Nitrostat] 0.4 mg SL Q5MIN PRN 08/14/12 Cholecalciferol (Vitamin D3) [Vitamin D3] 2,000 units PO DAILY 01/18/16 Pantoprazole [Protonix] 20 mg PO DAILY 01/18/16 amLODIPine [Norvasc] 5 mg PO DAILY 01/18/16 Furosemide 20 mg PO .DAILY OR BID 02/17/16 Gentle Iron 28 mg PO DAILY 11/18/16 Cinnamon Bark [Cinnamon] 500 mg PO TID 06/11/17 Losartan Potassium 25 mg PO DAILY 06/11/17 Objective - Vital Signs/Intake & Output Vital Signs: Vital Signs x48h Temp Pulse Pulse Resp BP BP Pulse Ox 12/26/17 11:01 37 C 77 24 97 12/26/17 09:00 37.0 C 77 24 133/64 H 92 12/26/17 05:56 69 127/48 L 12/26/17 04:20 36.8 C 72 24 117/56 L 98 Intake & Output: Intake & Output 12/23/17 12/24/17 12/25/17 12/26/17 23:59 23:59 23:59 23:59 Intake Total 730 460 Output Total 900 450 Balance -170 10 - Objective General Appearance: positive: No acute distress, Alert Eyes Bilateral: positive: No lid inflammation Eyes: OU Conjunctivae pale ENT: positive: ENT inspection nml, Pharynx nml, Dry mucous membranes Neck: positive: Nml inspection, Thyroid nml, No JVD, Trachea midline Respiratory: positive: Chest non-tender, No respiratory distress, Rhonchi Cardiovascular: positive: No gallop, Irregularly irregular, Systolic murmur, Decreased pulse(s) Peripheral Pulses: 1+ Radial (L), 1+ Femoral (R) Abdomen: positive: Non-tender, Nml bowel sounds, Other (rounded, soft) Back: positive: Nml inspection Skin: positive: No rash, Warm, Dry Extremities: positive: Non-tender, Full ROM, Nml appearance, No pedal edema, Joint swelling Neurologic/Psychiatric: positive: Disoriented to place, Disoriented to time, Weakness, Sensory loss, Depressed mood/affect, Other Reflexes: Bicep (R): 2+, Bicep (L): 2+ - Lab Results Fish Bones: 12/26/17 05:35 12/26/17 05:35 Other Labs: Lab Results x24hrs 12/26/17 12/26/17 12/26/17 Range/Units 05:35 05:35 05:35 WBC (4.8-10.8) x10^3/uL RBC (4.70-6.10) 10^6/uL Hgb (14.0-18.0) g/dL Hct (42.0-52.0) % MCV (80.0-94.0) fL MCH (27.0-31.0) pg MCHC (32.0-36.0) g/dL RDW (12.0-15.0) % Plt Count (130-450) 10^3/uL MPV (7.4-11.4) fL Neut # (Auto) (1.5-6.6) 10^3/uL Lymph # (Auto) (1.5-3.5) 10^3/uL [place] # (Auto) (0.0-1.0) 10^3/uL Eos # (Auto) (0.0-0.7) 10^3/uL Baso # (Auto) (0.0-0.1) 10^3/uL Absolute Nucleated RBC x10^3/uL Nucleated RBC % /100WBC Sodium (135-145) mmol/L Potassium (3.5-5.0) mmol/L Chloride (101-111) mmol/L Carbon Dioxide (21-32) mmol/L Anion Gap (6-13) BUN (6-20) mg/dL Creatinine (0.6-1.2) mg/dL Estimated GFR (MDRD) (>89) Glucose (70-100) mg/dL Calcium (8.5-10.3) mg/dL Total Bilirubin (0.2-1.0) mg/dL AST (10-42) IU/L ALT (10-60) IU/L Alkaline Phosphatase (42-121) IU/L Troponin I 0.10 (<0.49) ng/mL B-Natriuretic Peptide 214 H (5-100) pg/mL Total Protein (6.7-8.2) g/dL Albumin (3.2-5.5) g/dL Globulin (2.1-4.2) g/dL Albumin/Globulin Ratio (1.0-2.2) Triglycerides ( - 149) mg/dL Cholesterol ( - 199) mg/dL LDL Cholesterol, Calc ( - 129) mg/dL VLDL Cholesterol mg/dL HDL Cholesterol (60 - ) mg/dL LDL/HDL Ratio (<3.6) Cholesterol/HDL Ratio (<5.0) Vitamin B12 460 (180-914) pg/mL Folate 9.10 (5.90 - >24.8) ng/mL 12/26/17 12/26/17 12/25/17 Range/Units 05:35 05:35 18:00 WBC 7.4 (4.8-10.8) x10^3/uL RBC 3.08 L (4.70-6.10) 10^6/uL Hgb 10.6 L (14.0-18.0) g/dL Hct 30.2 L (42.0-52.0) % MCV 98.0 H (80.0-94.0) fL MCH 34.5 H (27.0-31.0) pg MCHC 35.2 (32.0-36.0) g/dL RDW 13.8 (12.0-15.0) % Plt Count 226 (130-450) 10^3/uL MPV 7.4 (7.4-11.4) fL Neut # (Auto) 5.4 (1.5-6.6) 10^3/uL Lymph # (Auto) 1.4 L (1.5-3.5) 10^3/uL [place] # (Auto) 0.6 (0.0-1.0) 10^3/uL Eos # (Auto) 0.0 (0.0-0.7) 10^3/uL Baso # (Auto) 0.0 (0.0-0.1) 10^3/uL Absolute Nucleated RBC 0.00 x10^3/uL Nucleated RBC % 0.0 /100WBC Sodium 139 (135-145) mmol/L Potassium 4.0 (3.5-5.0) mmol/L Chloride 102 (101-111) mmol/L Carbon Dioxide 31 (21-32) mmol/L Anion Gap 6.0 (6-13) BUN 35 H (6-20) mg/dL Creatinine 1.6 H (0.6-1.2) mg/dL Estimated GFR (MDRD) 41 L (>89) Glucose 135 H (70-100) mg/dL Calcium 8.9 (8.5-10.3) mg/dL Total Bilirubin 0.7 (0.2-1.0) mg/dL AST 15 (10-42) IU/L ALT < 10 L (10-60) IU/L Alkaline Phosphatase 66 (42-121) IU/L Troponin I (<0.49) ng/mL B-Natriuretic Peptide 97 (5-100) pg/mL Total Protein 6.8 (6.7-8.2) g/dL Albumin 3.6 (3.2-5.5) g/dL Globulin 3.2 (2.1-4.2) g/dL Albumin/Globulin Ratio 1.1 (1.0-2.2) Triglycerides 134 ( - 149) mg/dL Cholesterol 169 ( - 199) mg/dL LDL Cholesterol, Calc 107 ( - 129) mg/dL VLDL Cholesterol 27 mg/dL HDL Cholesterol 35 L (60 - ) mg/dL LDL/HDL Ratio 3.1 (<3.6) Cholesterol/HDL Ratio 4.8 (<5.0) Vitamin B12 (180-914) pg/mL Folate (5.90 - >24.8) ng/mL 12/25/17 12/25/17 Range/Units 18:00 13:14 WBC (4.8-10.8) x10^3/uL RBC (4.70-6.10) 10^6/uL Hgb (14.0-18.0) g/dL Hct (42.0-52.0) % MCV (80.0-94.0) fL MCH (27.0-31.0) pg MCHC (32.0-36.0) g/dL RDW (12.0-15.0) % Plt Count (130-450) 10^3/uL MPV (7.4-11.4) fL Neut # (Auto) (1.5-6.6) 10^3/uL Lymph # (Auto) (1.5-3.5) 10^3/uL [place] # (Auto) (0.0-1.0) 10^3/uL Eos # (Auto) (0.0-0.7) 10^3/uL Baso # (Auto) (0.0-0.1) 10^3/uL Absolute Nucleated RBC x10^3/uL Nucleated RBC % /100WBC Sodium (135-145) mmol/L Potassium (3.5-5.0) mmol/L Chloride (101-111) mmol/L Carbon Dioxide (21-32) mmol/L Anion Gap (6-13) BUN (6-20) mg/dL Creatinine (0.6-1.2) mg/dL Estimated GFR (MDRD) (>89) Glucose (70-100) mg/dL Calcium (8.5-10.3) mg/dL Total Bilirubin (0.2-1.0) mg/dL AST (10-42) IU/L ALT (10-60) IU/L Alkaline Phosphatase (42-121) IU/L Troponin I < 0.04 0.04 (<0.49) ng/mL B-Natriuretic Peptide (5-100) pg/mL Total Protein (6.7-8.2) g/dL Albumin (3.2-5.5) g/dL Globulin (2.1-4.2) g/dL Albumin/Globulin Ratio (1.0-2.2) Triglycerides ( - 149) mg/dL Cholesterol ( - 199) mg/dL LDL Cholesterol, Calc ( - 129) mg/dL VLDL Cholesterol mg/dL HDL Cholesterol (60 - ) mg/dL LDL/HDL Ratio (<3.6) Cholesterol/HDL Ratio (<5.0) Vitamin B12 (180-914) pg/mL Folate (5.90 - >24.8) ng/mL ABX Reporting Has patient been on IV antibiotics over the past 48 hours?: No Assessment/Plan - Problem List (1) Chest pain Impression: The patient admits to right anterior chest pain that he describes as sharp and non-radiating. He denies associated symptoms such as nausea, diaphoresis, dizziness, headaches, increased shortness of breath or blurred vision. He is prescribed Imdur, which has been continued here. He seems to get the most relief with morphine as it also makes for easier breathing. Today, the patient denies chest pain. Plan: Monitor for recurrence, give NTG tabs, morphine, as needed. Qualifiers: Chest pain type: unspecified Qualified Code(s): R07.9 - Chest pain, unspecified (2) COPD (chronic obstructive pulmonary disease) Impression: The patient has long-standing lung disease and is prescribed home oxygen, that h e wears usually at night. Plan: Continue respiratory care, and provide supplemental oxygen. (3) GERD (gastroesophageal reflux disease) Impression: The patient states that in addition to this, he has a hiatal hernia. He is prescribed a PPI at home, that continues here. Plan: Continue protonix, and monitor for symptoms. (4) Chronic respiratory failure with hypoxia, on home oxygen therapy Impression: Palliative care confirms that the patient has the option of wearing continuous oxygen, but the patient chooses to use it for sleeping at night. He continues on oxygen today without difficulty. Plan: Continue supplemental oxygen and monitor vital signs (5) Aspiration into airway Impression: Since the patient was suspected of aspirating upon admission, a bedside swallow evaluation was completed. The patient is now on a mechanical soft diet with nectar thick liquids. Despite his core starch allergy, the patient will be given thickened liquids to prevent worsening respiratory status. On x-ray, he was also found to have pleural effusions, which may also account for this finding. Plan: Continue diet recommendations, and the patient should eat meals in his chair. Qualifiers: Encounter type: initial encounter Qualified Code(s): T17.908A - Unspecified foreign body in respiratory tract, part unspecified causing other injury, initial encounter (6) Hx of CABG Impression: The patient states that he underwent a CABG both in [place] and in [place]. He has CAD and has also suffered from a recent CVA that [employer] [employer] impaired his memory, judgment, and safety awareness. He has since been medically managed on an ARB, beta ghassan, diuretic and recently treated with Imdur. Today the patient no longer has chest pain. Plan: Continue home meds and treat acute chest pain. (7) Dementia Impression: As per nursing conversation with the patient's daughter, his memory has become severely impaired as compared to a few months ago. The patient states that when he called 911, he could not tell them his address or phone #. He cannot recall what he may have eaten today and cannot elaborate on any of his medical conditions or what may have led up to this admission. He is pleasant and has a remote history of a suspected CVA/TIA in which this contributed to his memory loss. Plan: Continue nursing care, and explore memory care if he is determined to be physically safe..
[2017-12-26] MEDS: MULTIVITAMIN W/MINERALS TABLET PO SCH (12:58)
[2017-12-26] MEDS: MORPHINE 2 MG/ML CARPUJECT IVP PRN (18:07)
[2017-12-27] MEDS: SODIUM CHLORIDE FLUSH 0.9% 10 ML SYRINGE IVP SCH ×2 (02:27→08:48)
[2017-12-27] MEDS: CLOPIDOGREL 75 MG TABLET PO SCH (08:46)
[2017-12-27] MEDS: ISOSORBIDE MONONITRATE ER 30 MG TABLET PO SCH (08:46)
[2017-12-27] MEDS: MULTIVITAMIN W/MINERALS TABLET PO SCH (08:47)
[2017-12-27] MEDS: ASPIRIN EC 325 MG TABLET PO SCH (08:47)
[2017-12-27] MEDS: PANTOPRAZOLE 40 MG TABLET PO SCH (08:47)
[2017-12-27] MEDS: METOPROLOL SUCCINATE 25 MG TABLET PO SCH (08:47)
[2017-12-27] MEDS: POLYETHYLENE GLYCOL 3350 17 GM PACKET PO SCH (08:47)
[2017-12-27 08:48] LABS: BASOPHILS % (AUTO) 0.1 %; EOSINOPHILS # (AUTO) 0.1 10^3/uL (0.0-0.7); EOSINOPHILS % (AUTO) 0.8 %; LYMPHOCYTES # (AUTO) 1.3 10^3/uL (1.5-3.5); LYMPHOCYTES % (AUTO) 15.2 %; MEAN CORPUSCULAR HEMOGLOBIN 33.4 pg (27.0-31.0); MEAN CORPUSCULAR HGB CONC 34.1 g/dL (32.0-36.0); MEAN CORPUSCULAR VOLUME 97.9 fL (80.0-94.0); MEAN PLATELET VOLUME 6.8 fL (7.4-11.4); MONOCYTES # (AUTO) 0.7 10^3/uL (0.0-1.0); MONOCYTES % (AUTO) 7.9 %; NEUTROPHILS # (AUTO) 6.6 10^3/uL (1.5-6.6); PLT - PLATELET COUNT 199 10^3/uL (130-450); RED CELL DISTRIBUTION WIDTH 13.6 % (12.0-15.0); WHITE BLOOD COUNT 8.6 x10^3/uL (4.8-10.8)
[2017-12-27] MEDS ORDERED: FUROSEMIDE 20 MG TABLET PO SCH (09:00)
[2017-12-27 09:04] LABS: ALBUMIN 3.5 g/dL (3.2-5.5); ALKALINE PHOSPHATASE 66 IU/L (42-121); ALT ALANINE AMINOTRANSFERASE < 10 IU/L (10-60); AST ASPARTATE AMINOTRANSFERASE 15 IU/L (10-42); BILIRUBIN,TOTAL 0.5 mg/dL (0.2-1.0); BUN - BLOOD UREA NITROGEN 36 mg/dL (6-20); CALCIUM 8.9 mg/dL (8.5-10.3); CARBON DIOXIDE - CO2 32 mmol/L (21-32); CHLORIDE 101 mmol/L (101-111); CREATININE 1.6 mg/dL (0.6-1.2); GFR - MDRD 41 (>89); GLUCOSE 144 mg/dL (70-100); MAGNESIUM 2.1 mg/dL (1.7-2.8); SODIUM 140 mmol/L (135-145); TOTAL PROTEIN 6.9 g/dL (6.7-8.2)
--- NOTE | 2017-12-27 10:25 | XRAY Report ---
Reason: aspiration pneumonia Procedure Date: 12/27/2017 Accession Number: [id number] / [id number] Procedure: XR - Chest 1 View X-Ray CPT Code: 92670 FULL RESULT: EXAM: CHEST RADIOGRAPHY EXAM DATE: 12/27/2017 09:52 AM. CLINICAL HISTORY: Aspiration pneumonia. Cough. COPD. COMPARISON: CHEST 1 VIEW 12/25/2017 7:30 AM. TECHNIQUE: Upright AP view. FINDINGS: Lungs/Pleura: Lung volumes mildly low. No focal opacities evident. No pleural effusion. No pneumothorax. Mediastinum: Within exam limitations, the cardiomediastinal contour is normal. Sternotomy wires, as before. Dual-chamber pacemaker electrodes, as before. Mild aortic arch calcification. Other: None. IMPRESSION: 1. Lung volumes mildly low. 2. No focal airspace consolidation. RADIA
[2017-12-27] MEDS: MORPHINE 2 MG/ML CARPUJECT IVP PRN (12:41)
--- NOTE | 2017-12-27 13:59 | Discharge Plan ---
"[facility] - Discharge Plan And Transition Orders Disposition: 03 SNF DC/Xfer Condition: Good Allergies and Adverse Reactions: Allergies Allergy/AdvReac Type Severity Reaction Status Date / Time acetaminophen Allergy Severe Itching Verified 01/06/17 06:13 atorvastatin calcium * Allergy Severe Itching Verified 01/06/17 06:13 [From Lipitor] cephalexin Allergy Severe Itching Verified 01/06/17 06:13 erythromycin base Allergy Severe Edema Verified 01/06/17 06:13 [Erythromycin Base] - SNF / SENIOR LIVING Transition Orders Admit to (Facility): [facility] Under the care of (Name): Nicky Zuniga Discharge Diagnosis: Chest pain (R07.9) COPD (chronic obstructive pulmonary disease) (J44.9) GERD (gastroesophageal reflux disease) (K21.9) Chronic respiratory failure with hypoxia, on home O2 therapy (J96.11) Aspiration into airway (T17.908A) 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 Notify PCP of admission and forward orders to primary provider for signature. Weight on admission and: Monthly Other Notification Orders: Call PCP immediately if patient develops dyspnea, chest pain/tightness or edema. House Bowel Program: Yes Additional Bowel Program Orders: If no BM after 2 days, nurse may give M.O.M. 30ml PO PRN and/or ducolax Supp 1 MD and/or SOL 250mg P.O., and/or senna 1-2 tabs PO. On day 3 nurse may give repeat above order until residents constipation is resolved. Oxygen Orders: 2-3L per nasal cannula to keep oxygen saturations greater than 92%. Medication Orders: PLEASE REFER TO THE DISCHARGE MEDICATION LIST. Insulin Orders?: No - Medications New Prescriptions: Furosemide [Lasix] 20 mg PO DAILY #30 tablet Metoprolol Succinate 25 mg PO BID #60 tab.er.24h Ranolazine [Ranexa] 1,000 mg PO BID #60 tab.er.12h - Diet Type: Geriatric Texture: [facility] soft Liquids: [place] thick May have monthly special meal: Yes - Therapies | Activity Rehabilitation Potential: Return to independent living, Maintain present ADL Functional Activity: Activity as Tolerated Weight Bearing: Full Weight Additional Instructions: The patient is also under the care of Palliative care."
--- NOTE | 2017-12-27 14:17 | DISCHARGE SUMMARY ---
Discharge Summary Admit Date: 12/25/17 Discharge Date: 12/27/17 Discharging Provider: STEFANIE Ro Primary Care Provider: Nicky Zuniga Code Status: Do Not Attempt Resuscitation Condition at Discharge: Good Discharge Disposition: 03 SNF DC/Xfer [facility]charge [facility] 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 COPD (chronic obstructive pulmonary disease) (J44.9) chronic, stable. GERD (gastroesophageal reflux disease) (K21.9) chronic, stable. Chronic respiratory failure with hypoxia, on home O2 therapy (J96.11) chronic, stable. Aspiration into airway (T17.908A) new on this admission, NECTAR thick liquids. 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 Dementia (F03.90) chronic, stable. - HPI History of Present Illness: Julian Reddy is a 87-year old male with a past medical history of hypertension, hyperlipidemia, CAD, angina, [place], CABG (both in [place] and in [place]), pacemaker, CHF, COPD, oxygen dependent, shortness of breath, pneumonia, diabetes mellitus type 2-diet controlled, GERD, ulcers, hiatal hernia, renal insufficiency, chronic vision loss, chronic hearing loss, depression, anxiety, PTSD, osteoarthritis, fatigue, CVA-residual expressive aphasia and memory loss, hemorrhoids, and nocturia. The patient states that he awoke at 3AM and had right anterior chest pain that was not radiating and did not have any associated symptoms including dizziness, nausea, diaphoresis, or increased shortness of breath. Since the symptom did not go away, he called 911. The coil machine operator asked his location, which he did not know since his short term memory is poor and he gave them his daughter, Carie's name. EMS brought him to the ED. Once in the ED the patient had a resolution of chest pain, but states that this continues to come and go. He states that he has had heart attacks in the past that had similar symptoms. Reports from EMS was that the patient had an improvement in his symptoms after getting the ASA and SL nitroglycerin. The patient's labs showed macrocytic anemia with an H/H of 11.4/33.7, an elevated MCV of 98.7, an elevated BUN of 44, an elevated creatinine of 1.7, a reduced GFR of 38, an elevated glucose of 142, a negative troponin of 0.04, with no other lab abnormal ities. Vital signs were normal and the patient was afebrile. Upon exam the patient states that he is pain free since arriving in the ED, but is thankful for this stay. The patient denies headaches, rashes, sore throat, a worsening cough, increased shortness of breath, recent falls, dysuria, nausea, vomiting, or dizziness. The patient will be observed overnight for a cardiac work up. - HOSPITAL COURSE Hospital Course: (1) Chest pain The patient admits to right anterior chest pain that he describes as sharp and non-radiating. He denies associated symptoms such as nausea, diaphoresis, dizziness, headaches, increased shortness of breath or blurred vision. He is prescribed Imdur, which has been continued here. He seems to get the most relief with morphine as it also makes for easier breathing. Prior to discharge the patient's daughter informed me of his previous prescription of Ranexa that had just been started, so I have resumed this for his assisted living. (2) COPD (chronic obstructive pulmonary disease) The patient has long-standing lung disease and is prescribed home oxygen, that he wears usually at night. (3) GERD (gastroesophageal reflux disease) The patient states that in addition to this, he has a hiatal hernia. He is prescribed a PPI at home, that continues here. (4) Chronic respiratory failure with hypoxia, on home oxygen therapy Palliative care confirms that the patient has the option of wearing continuous oxygen, but the patient chooses to use it for sleeping at night. He continues on oxygen today without difficulty. (5) Aspiration into airway Since the patient was suspected of aspirating upon admission, a bedside swallow evaluation was completed. The patient is now on a mechanical soft diet with nectar thick liquids. Despite his core starch allergy, the patient will be given thickened liquids to prevent worsening respiratory status. On x-ray, he was also found to have pleural effusions, which may also account for this finding. (6) Hx of CABG The patient states that he underwent a CABG both in [place] and in [place]. He has CAD and has also suffered from a recent CVA that hutton Thes impaired his memory, judgment, and safety awareness. He has since been medically managed on an ARB, beta ghassan, diuretic and recently treated with Imdur. Today the patient no longer has chest pain. (7) Dementia As per nursing conversation with the patient's daughter, his memory has become severely impaired as compared to a few months ago. The patient states that when he called 911, he could not tell them his address or phone #. He cannot recall what he may have eaten today and cannot elaborate on any of his medical conditions or what may have led up to this admission. He is pleasant and has a remote history of a suspected CVA/TIA in which this contributed to his memory loss. Disposition: The patient was in stable condition with his last troponin being negative at 0.04. His daughter was present for his exam, and she was to transport to [facility] for more supervision. - ALLERGIES Allergies/Adverse Reactions: Allergies Allergy/AdvReac Type Severity Reaction Status Date / Time acetaminophen Allergy Severe Itching Verified 01/06/17 06:13 atorvastatin calcium * Allergy Severe Itching Verified 01/06/17 06:13 [From Lipitor] cephalexin Allergy Severe Itching Verified 01/06/17 06:13 erythromycin base Allergy Severe Edema Verified 01/06/17 06:13 [Erythromycin Base] - MEDICATIONS Home Medications: Ambulatory Orders Medication Instructions Recorded Confirmed Aspirin [Aspir 81] 81 mg PO DAILY 08/14/12 12/25/17 Clopidogrel [Plavix] 75 mg PO DAILY 08/14/12 12/25/17 Isosorbide Mononitrate [Imdur] 120 mg PO BID 08/14/12 12/25/17 Nitroglycerin [Nitrostat] 0.4 mg SL Q5MIN PRN 08/14/12 12/25/17 Cholecalciferol (Vitamin D3) 2,000 units PO DAILY 01/18/16 12/25/17 [Vitamin D3] Pantoprazole [Protonix] 20 mg PO DAILY 01/18/16 12/25/17 Gentle Iron 28 mg PO DAILY 11/18/16 12/25/17 Cinnamon Bark [Cinnamon] 500 mg PO TID 06/11/17 12/25/17 Losartan Potassium 25 mg PO DAILY 06/11/17 12/25/17 Furosemide [Lasix] 20 mg PO DAILY #30 tablet 12/27/17 Metoprolol Succinate 25 mg PO BID #60 tab.er.24h 12/27/17 Ranolazine [Ranexa] 1,000 mg PO BID #60 tab.er.12h 12/27/17 - PHYSICAL EXAM AT DISCHARGE General Appearance: positive: No acute distress, Alert Eyes Bilateral: positive: Normal inspection, PERRL ENT: positive: ENT inspection nml, Pharynx nml, Dry mucous membranes Neck: positive: Thyroid nml, No JVD, Trachea midline Respiratory: positive: Chest non-tender, No respiratory distress, Other (coarse crackles, bilaterally.) Cardiovascular: positive: No gallop, Irregularly irregular, Systolic murmur, Decreased pulse(s) Peripheral Pulses: positive: 2+ Abdomen: positive: Non-tender, Nml bowel sounds, No distention Back: positive: Nml inspection Skin: positive: No rash, Warm, Dry, Pallor Extremities: positive: Non-tender, Full ROM, Nml appearance, No pedal edema, Joint swelling Neurologic/Psychiatric: positive: Disoriented to place, Disoriented to time, Weakness, Sensory loss, Depressed mood/affect, Other (very poor STM memory loss.) Reflexes: Bicep (R): 3+, Bicep (L): 3+ - LABS Result Diagrams: 12/27/17 08:38 12/27/17 08:38 - DIAGNOSTIC IMAGING Diagnostic Imaging Results: Final report reviewed Diagnostic Imaging Results Comments: EXAM: CHEST RADIOGRAPHY EXAM DATE: 12/25/2017 07:44 AM. IMPRESSION: 1. Stable mild cardiomegaly. 2. Small bilateral pleural effusions. 3. No focal pulmonary consolidation. EXAM: CHEST RADIOGRAPHY EXAM DATE: 12/27/2017 09:52 AM. IMPRESSION: 1. Lung volumes mildly low. 2. No focal airspace consolidation. ECHOCARDIOGRAM; 12/25/17 Final read by Jean Marinelli MD 1. Mild concentric LV hypertrophy. 2. Overall LV systolic function is lower limits of normal with an EF of 50-55%. 3. Moderate increase in the LA volume index. 4. Mild RA enlargement. 5. There is mild aortic regurg. 6. There is mild to moderate mitral regurg. 7. Mild to moderate tricuspid regurg. 8. Moderately abnormal right heart pressures. 9. 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
[2017-12-27 15:38] VITALS: BP 114/55
[2017-12-27] MEDS ORDERED: METOPROLOL SUCCINATE 25 MG TABLET PO SCH (21:00)
== END 2017-12-27 15:40 | DRG 313 ==
LOC: EDUNIT# → ED 07:01 → MS2 09:23 → OBSVTOIN 12-26 11:48
PROVIDERS: ADMIT Nurse Practitioner; ATTEND Nurse Practitioner
DX: R07.9 Chest pain, unspecified (principal); J96.11 Chronic respiratory failure with hypoxia; J44.9 Chronic obstructive pulmonary disease, unspecified; Z99.81 Dependence on supplemental oxygen; Z66 Do not resuscitate; I11.0 Hypertensive heart disease with heart failure; I50.9 Heart failure, unspecified; K21.9 Gastro-esophageal reflux disease without esophagitis; F03.90 Unspecified dementia, unspecified severity, without behavioral disturbance, psychotic disturbance, mood disturbance, and anxiety; I10 Essential (primary) hypertension; I25.10 Atherosclerotic heart disease of native coronary artery without angina pectoris; Z95.1 Presence of aortocoronary bypass graft; Z95.0 Presence of cardiac pacemaker; E11.9 Type 2 diabetes mellitus without complications; I69.820 Aphasia following other cerebrovascular disease
CPT/HCPCS: G0378 ×2; 36415; 71045; 80053; 80061; 82607; 82746; 83690; 83721; 83735; 83880; 84484; 85025; 93005; 93306; 96374; 96375; 99284